=== PATIENT | male | born 1945 | race Caucasian/White ===

== ENCOUNTER 2018-12-06 13:44 | Inpatient (IN) | payer MEDICARE, MEDICAID ==
[2018-12-06] MEDS ORDERED: Sodium Chloride 0.9% 1,000 ML IV ONE (14:31)
[2018-12-06] MEDS ORDERED: cefTRIAXone 1 GM in Sodium Chloride 0.9% 50 ML IV ONE (14:38)
[2018-12-06] MEDS ORDERED: Azithromycin 500 MG in Sodium Chloride 0.9% 250 ML IV ONE (14:38)
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
[2018-12-06] MEDS ORDERED: Potassium Chloride 10% 20 MEQ/15 ML Soln 15 ML UD Cup PO ONE (15:13)
[2018-12-06] MEDS ORDERED: Acetaminophen 325 MG Tab PO PRN (15:32)
[2018-12-06] MEDS ORDERED: Ondansetron 4 MG Tab.DIS PO PRN (15:32)
[2018-12-06] MEDS ORDERED: Bisacodyl 5 MG Tab PO PRN (15:32)
[2018-12-06] MEDS ORDERED: Lactated Ringers 1,000 ML IV SCH (15:45)
[2018-12-06] MEDS ORDERED: Indomethacin 50 MG Cap PO PRN (15:53)
[2018-12-06] MEDS: Albuterol/Ipratropium 3.0-0.5 MG/3 ML Neb Soln NEB SCH ×2 (16:18→20:30)
[2018-12-06] MEDS: Nicotine 14 MG/24 Hr Patch TRDERM SCH (16:19)
[2018-12-06] MEDS: Lactated Ringers 1,000 ML IV SCH (18:33)
[2018-12-06] MEDS: Enoxaparin 40 MG/0.4 ML Syringe SUBCUT SCH (18:35)
--- NOTE | 2018-12-06 19:17 | PCM.HP ---
H&P History of Present Illness - General Date of Service: 12/06/18 Admit Problem/Dx: Admission Diagnosis/Problem Admission Diagnosis/Problem Dehydration Source of Information: Patient, Old Records History Limitations: Reports: No Limitations - History of Present Illness Initial Comments - Free Text/Narative: Angel was brought in from the apartment because of fatigue, weakness. He complains that he has not been able to eat or drink for 2 days and was unable to get out of the seat this morning. He has no chest pain;headaches or weakness of one side. He was noted to be slightly confused and having slurred speech today. Angel drinks everyday,lives is alone, has a history of hypertension and gout, sees Dr. Canseco once in a while. - Related Data Allergies/Adverse Reactions: Allergies Allergy/AdvReac Type Severity Reaction Status Date / Time No Known Allergies Allergy Verified 12/06/18 14:32 Home Medications: Home Meds Atenolol 100 mg PO DAILY 12/06/18 [History] Enalapril Maleate 10 mg PO DAILY 12/06/18 [History] Indomethacin 50 mg PO BID PRN 12/06/18 [History] Past Medical History - Past Health History Medical/Surgical History: Denies Medical/Surgical History HEENT History: Reports: Impaired Vision Musculoskeletal History: Reports: Gout Other Musculoskeletal History: LEFT LEG FRACTURE Neurological History: Reports: Head Trauma Social & Family History - Family History Family Medical History: Unobtainable - Tobacco Use Smoking Status *Q: Never Smoker - Caffeine Use Caffeine Use: Reports: None - Alcohol Use Days Per Week of Alcohol Use: 7 Number of Drinks Per Day: 2 Total Drinks Per Week: 14 Date of Last Drink: 12/04/18 - Recreational Drug Use Recreational Drug Use: No H&P Review of Systems - Review of Systems: Review Of Systems: ROS reveals no pertinent complaints other than HPI. Exam - Exam Exam: See Below - Vital Signs Vital Signs: Last Vital Signs Temp 97.5 F 12/06/18 18:34 Pulse 109 H 12/06/18 18:34 Resp 20 12/06/18 18:34 BP 119/61 12/06/18 18:34 Pulse Ox 94 L 12/06/18 18:34 Weight: 80.422 kg - Exam Quality Assessment: Supplemental Oxygen General: Alert, Oriented, 4 HEENT: PERRLA, Hearing Intact, Mucosa Moist & [place], Nares Patent, Normal Nasal Septum, Posterior Pharynx Clear, Conjunctiva Clear, EOMI, EACs Clear, TMs Clear Neck: Supple, Trachea Midline, 2 Lungs: Clear to Auscultation, Normal Respiratory Effort Cardiovascular: Regular Rate, Regular Rhythm GI/Abdominal Exam: Distended, Tender (LLQ) (Male) Exam: No Hernia, Normal Inspection, Normal Prostate, Circumcised Rectal (Males) Exam: Normal Exam, Normal Rectal Tone, Prostate Normal Back Exam: Normal Inspection, Full Range of Motion, NT Extremities: Normal Inspection, Normal Range of Motion, Non-Tender, No Pedal Edema, Normal Capillary Refill Skin: Warm, Dry, Intact Neurological: Cranial Nerves Intact, Reflexes Equal Bilateral Neuro Extensive - Mental Status: Alert, Oriented x3, Normal Mood/Affect, Normal Cognition Neuro Extensive - Motor, Sensory, Reflexes: CN II-XII Intact, Normal Gait, Normal Reflexes Psychiatric: Alert, Normal Affect, Normal Mood - Patient Data Lab Results Last 24 hrs: Laboratory Results - last 24 hr 12/06/18 12/06/18 12/06/18 Range/Units 14:40 14:40 14:40 WBC (4.5-12.0) X10-3/uL RBC (4.30-5.75) x10(6)uL Hgb (11.5-15.5) g/dL Hct (30.0-51.3) % MCV (80-96) fL MCH (27.7-33.6) pg MCHC (32.2-35.4) g/dL RDW (11.5-15.5) % Plt Count (125-369) X10(3)uL MPV (7.4-10.4) fL Add Manual Diff Neutrophils % (Manual) (46-82) % Band Neutrophils % (0-6) % Lymphocytes % (Manual) (13-37) % Monocytes % (Manual) (4-12) % PT (8.7-11.1) INR (0.89-1.13) D-Dimer, Quantitative 1.38 H (0.0-0.59) mg/LFEU Sodium 135 (135-145) mmol/L Potassium 2.6 L* (3.5-5.3) mmol/L Chloride 95 L (100-110) mmol/L Carbon Dioxide 17 L (21-32) mmol/L BUN 10 (7-18) mg/dL Creatinine 1.0 (0.70-1.30) mg/dL Est Cr Clr Drug Dosing 66.92 mL/min Estimated GFR (MDRD) > 60 (>60) BUN/Creatinine Ratio 10.0 (9-20) Glucose 141 H (80-116) mg/dL Lactic Acid (0.4-2.2) mmol/L Calcium 9.7 (8.6-10.2) mg/dL Total Bilirubin 3.6 H (0.1-1.3) mg/dL AST 99 H (5-25) IU/L ALT 61 H (12-36) U/L Alkaline Phosphatase 166 H (56-112) IU/L Creatine Kinase (60-160) IU/L Troponin I < 0.017 L (<0.017-0.056) ng/mL NT-Pro-B Natriuret Pep (<=125) pg/mL Total Protein 8.8 H (6.0-8.0) g/dL Albumin 3.1 L (3.2-4.6) g/dL Globulin 5.7 g/dL Albumin/Globulin Ratio 0.5 TSH, Ultra Sensitive (0.36-3.74) IU/mL 12/06/18 12/06/18 12/06/18 Range/Units 14:40 14:40 14:40 WBC 11.6 (4.5-12.0) X10-3/uL RBC 4.70 (4.30-5.75) x10(6)uL Hgb 15.9 H (11.5-15.5) g/dL Hct 46.6 (30.0-51.3) % MCV 99.2 H (80-96) fL MCH 34.0 H (27.7-33.6) pg MCHC 34.2 (32.2-35.4) g/dL RDW 15.2 (11.5-15.5) % Plt Count 279 (125-369) X10(3)uL MPV 8.8 (7.4-10.4) fL Add Manual Diff Yes Neutrophils % (Manual) 84 H (46-82) % Band Neutrophils % 1 (0-6) % Lymphocytes % (Manual) 5 L (13-37) % Monocytes % (Manual) 10 (4-12) % PT (8.7-11.1) INR (0.89-1.13) D-Dimer, Quantitative (0.0-0.59) mg/LFEU Sodium (135-145) mmol/L Potassium (3.5-5.3) mmol/L Chloride (100-110) mmol/L Carbon Dioxide (21-32) mmol/L BUN (7-18) mg/dL Creatinine (0.70-1.30) mg/dL Est Cr Clr Drug Dosing mL/min Estimated GFR (MDRD) (>60) BUN/Creatinine Ratio (9-20) Glucose (80-116) mg/dL Lactic Acid 2.1 (0.4-2.2) mmol/L Calcium (8.6-10.2) mg/dL Total Bilirubin (0.1-1.3) mg/dL AST (5-25) IU/L ALT (12-36) U/L Alkaline Phosphatase (56-112) IU/L Creatine Kinase (60-160) IU/L Troponin I (<0.017-0.056) ng/mL NT-Pro-B Natriuret Pep 412 H (<=125) pg/mL Total Protein (6.0-8.0) g/dL Albumin (3.2-4.6) g/dL Globulin g/dL Albumin/Globulin Ratio TSH, Ultra Sensitive (0.36-3.74) IU/mL 12/06/18 12/06/18 12/06/18 Range/Units 14:40 14:40 14:40 WBC (4.5-12.0) X10-3/uL RBC (4.30-5.75) x10(6)uL Hgb (11.5-15.5) g/dL Hct (30.0-51.3) % MCV (80-96) fL MCH (27.7-33.6) pg MCHC (32.2-35.4) g/dL RDW (11.5-15.5) % Plt Count (125-369) X10(3)uL MPV (7.4-10.4) fL Add Manual Diff Neutrophils % (Manual) (46-82) % Band Neutrophils % (0-6) % Lymphocytes % (Manual) (13-37) % Monocytes % (Manual) (4-12) % PT 12.1 H (8.7-11.1) INR 1.25 H (0.89-1.13) D-Dimer, Quantitative (0.0-0.59) mg/LFEU Sodium (135-145) mmol/L Potassium (3.5-5.3) mmol/L Chloride (100-110) mmol/L Carbon Dioxide (21-32) mmol/L BUN (7-18) mg/dL Creatinine (0.70-1.30) mg/dL Est Cr Clr Drug Dosing mL/min Estimated GFR (MDRD) (>60) BUN/Creatinine Ratio (9-20) Glucose (80-116) mg/dL Lactic Acid (0.4-2.2) mmol/L Calcium (8.6-10.2) mg/dL Total Bilirubin (0.1-1.3) mg/dL AST (5-25) IU/L ALT (12-36) U/L Alkaline Phosphatase (56-112) IU/L Creatine Kinase 78 (60-160) IU/L Troponin I (<0.017-0.056) ng/mL NT-Pro-B Natriuret Pep (<=125) pg/mL Total Protein (6.0-8.0) g/dL Albumin (3.2-4.6) g/dL Globulin g/dL Albumin/Globulin Ratio TSH, Ultra Sensitive 0.96 (0.36-3.74) IU/mL Result Diagrams: 12/06/18 14:40 12/06/18 14:40 Clive Results Last 24 hrs: Microbiology 12/06/18 14:43 Influenza Type A Antigen Screen - Final Nasal, Right NEGATIVE INFLUENZA A VIRUS AG Influenza Type B Antigen Screen - Final NEGATIVE INFLUENZA B VIRUS AG 12/06/18 14:43 Group A Streptococcus Rapid Screen - Final Throat NEGATIVE STREP A SCREEN - Problem List (1) CAP (community acquired pneumonia) SNOMED Code(s): 027220783 ICD Code: J18.9 - PNEUMONIA, UNSPECIFIED ORGANISM Status: Acute Current Visit: Yes Qualifiers: Laterality: unspecified laterality Qualified Code(s): J18.9 - Pneumonia, unspecified organism (2) Hypoxia SNOMED Code(s): 898405831 ICD Code: R09.02 - HYPOXEMIA Status: Acute Current Visit: Yes (3) Hypokalemia SNOMED Code(s): 93106984 ICD Code: E87.6 - HYPOKALEMIA Status: Acute Current Visit: Yes (4) ETOH abuse SNOMED Code(s): 14627513 ICD Code: F10.10 - ALCOHOL ABUSE, UNCOMPLICATED Status: Acute Current Visit: Yes (5) HTN (hypertension) SNOMED Code(s): 91155606 ICD Code: I10 - ESSENTIAL (PRIMARY) HYPERTENSION Status: Acute Current Visit: Yes Qualifiers: Hypertension type: essential hypertension Qualified Code(s): I10 - Essential (primary) hypertension (6) Failure to thrive SNOMED Code(s): 06626263 ICD Code: OTF1608 - Status: Acute Current Visit: Yes (7) Palliative care encounter SNOMED Code(s): 260618184 ICD Code: Z51.5 - ENCOUNTER FOR PALLIATIVE CARE Status: Acute Current Visit: Yes (8) Abdominal pain SNOMED Code(s): 21627228 ICD Code: R10.9 - UNSPECIFIED ABDOMINAL PAIN Status: Acute Current Visit : Yes (9) Anorexia SNOMED Code(s): 51421223 ICD Code: R63.0 - ANOREXIA Status: Acute Current Visit: Yes (10) UTI (urinary tract infection) SNOMED Code(s): 96677791 ICD Code: N39.0 - URINARY TRACT INFECTION, SITE NOT SPECIFIED Status: Acute Current Visit: Yes Problem List Initiated/Reviewed/Updated: Yes Orders Last 24hrs: Active Orders 24 hr Category Date Time Status Patient Status [ADT] Routine ADT 12/06/18 15:32 Active EKG Documentation Completion [RC] ASDIRECTED Care 12/06/18 14:30 Active Oxygen Therapy [RC] PRN Care 12/06/18 15:32 Active RT Aerosol Therapy [RC] ASDIRECTED Care 12/06/18 15:37 Active VTE/DVT Education [RC] Per Unit Routine Care 12/06/18 15:32 Active Vital Signs [RC] Q4H Care 12/06/18 15:32 Active Regular Diet [DIET] Diet 12/07/18 Breakfast Active Abdomen Pelvis w Cont [CT] Routine Exams 12/06/18 19:12 Ordered Ang Chest [CT] Routine Exams 12/06/18 19:13 Ordered CXR [Chest 1V Frontal] [CR] Stat Exams 12/06/18 14:29 Taken Head wo Cont [CT] Stat Exams 12/06/18 14:30 Taken AMYLASE [CHEM] Routine Lab 12/06/18 19:13 Ordered CBC WITH AUTO DIFF [HEME] AM Lab 12/07/18 05:11 Ordered COMPREHENSIVE METABOLIC PN,CMP [CHEM] AM Lab 12/07/18 05:11 Ordered CULTURE BLOOD [BC] Urgent Lab 12/06/18 14:40 Received CULTURE BLOOD [BC] Urgent Lab 12/06/18 14:46 Received CULTURE STREP A CONFIRMATION [RM] Urgent Lab 12/06/18 14:43 Results STREP SCRN A RAPID W CULT CONF [RM] Urgent Lab 12/06/18 14:43 Results UA W/MICROSCOPIC [URIN] Urgent Lab 12/06/18 14:28 Ordered Acetaminophen [Tylenol] Med 12/06/18 15:32 Active 650 mg PO Q4H PRN Albuterol/Ipratropium [DuoNeb 3.0-0.5 MG/3 ML] Med 12/06/18 16:00 Active 3 ml NEB QIDRT Atenolol [Tenormin] Med 12/07/18 09:00 Active 100 mg PO DAILY Bisacodyl [Dulcolax] Med 12/06/18 15:32 Active 5 mg PO DAILY PRN Enalapril [Vasotec] Med 12/07/18 09:00 Active 10 mg PO DAILY Enoxaparin [Lovenox] Med 12/06/18 18:00 Active 40 mg SUBCUT Q24H Indomethacin [Indocin] Med 12/06/18 21:00 Active 50 mg PO BID PRN Lactated Ringers [Ringers, Lactated] 1,000 ml Med 12/06/18 15:45 Active IV .BOLUS Lactated Ringers [Ringers, Lactated] 1,000 ml Med 12/06/18 18:30 Active IV ASDIRECTED Nicotine [Habitrol] Med 12/06/18 16:00 Active 14 mg TRDERM Q24H Ondansetron [Zofran ODT] Med 12/06/18 15:32 Active 4 mg PO Q6H PRN Blood Culture x2 Reflex Set [OM.PC] Urgent Oth 12/06/18 14:27 Ordered Resuscitation Status Routine Resus Stat 12/06/18 15:32 Ordered EKG 12 Lead [EK] Routine Ther 12/06/18 14:29 Ordered Medication Orders Acetaminophen (Tylenol) 650 mg PO Q4H PRN PRN Reason: Pain (Mild 1-3)/fever Albuterol/Ipratropium (Duoneb 3.0-0.5 Mg/3 Ml) 3 ml NEB QIDRT [facility] Last Admin: 12/06/18 16:18 Dose: 3 ml Atenolol (Tenormin) 100 mg PO DAILY [facility] Bisacodyl (Dulcolax) 5 mg PO DAILY PRN PRN Reason: Constipation Enalapril Maleate (Vasotec) 10 mg PO DAILY [facility] Enoxaparin Sodium (Lovenox) 40 mg SUBCUT Q24H [facility] Last Admin: 12/06/18 18:35 Dose: 40 mg Lactated Ringer's (Ringers, Lactated) 1,000 mls @ 999 mls/hr IV .BOLUS [facility] Last Admin: 12/06/18 17:20 Dose: 999 mls/hr Lactated Ringer's (Ringers, Lactated) 1,000 mls @ 100 mls/hr IV ASDIRECTED [facility] Last Admin: 12/06/18 18:33 Dose: 100 mls/hr Indomethacin (Indocin) 50 mg PO BID PRN PRN Reason: Pain Nicotine (Habitrol) 14 mg TRDERM Q24H [facility] Last Admin: 12/06/18 16:19 Dose: Not Given Ondansetron HCl (Zofran Odt) 4 mg PO Q6H PRN PRN Reason: nausea, able to take PO Assessment/Plan Comment:: I reviewed his chest x-ray and CT of the head unremarkable. I believe the source of his weakness is multifactorial including alcohol abuse, hypokalemia. I will order the CT of the abdomen and pelvis and chest fever for PE, and possibly pancreatitis or diverticulitis. Repeat labs the morning;continue IV fluid resuscitation and oxygen supplementation.Urine shows an infection,and CT does show some pneumonia
[2018-12-06] MEDS ORDERED: Iopamidol 755 Mg/ML 100 ML Bottle IV ONE (19:25)
[2018-12-06] MEDS: Thiamine 200 MG/2 ML MDV IV SCH (20:25)
[2018-12-06] MEDS ORDERED: Indomethacin 25 MG Cap PO PRN (21:00)
[2018-12-06] MEDS ORDERED: Sodium Chloride 0.9% 10 ML SDV FLUSH SCH (23:00)
[2018-12-07] MEDS: Albuterol/Ipratropium 3.0-0.5 MG/3 ML Neb Soln NEB SCH ×5 (04:52→19:59)
[2018-12-07] MEDS: Lactated Ringers 1,000 ML IV SCH (04:53)
[2018-12-07] MEDS: Thiamine 200 MG/2 ML MDV IV SCH (08:35)
--- NOTE | 2018-12-07 08:38 | CT ---
INDICATION: Confusion; mitral valve prosthesis; CABG, 2 vessels; question TIA, cerebrovascular accident, or cerebral bleed. CT HEAD WITHOUT CONTRAST: Spiral axial images of the head/brain were obtained with sagittal and coronal reconstructions, 12/06/18, without IV contrast. No comparisons were available. Total exam DLP = 1,296.53 mGy-cm. Carotid artery calcifications are noted. 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 The left frontal lobe area is most severely affected. No definite acute intracranial abnormality was identified - no bleeding site or hematoma was seen. There is some mild patchy decreased density in the white matter, compatible with mild microvascular disease, although other cause of leukoencephalopathy cannot be excluded. No shift of midline structures was identified. Ventricles are prominent, compatible with central atrophy. The mastoid air cells and paranasal sinuses appear to be well-aerated. No cranial abnormality was identified. IMPRESSION: 1. No definite acute intracranial abnormality. 2. 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 3. Central atrophy. 4. Cerebrovascular disease with internal carotid artery calcifications. 5. White matter changes compatible with microvascular disease of mild degree. Report was called to Dr. Paz at 1545 hours on 12/06/18. [facility]AR[facility]
--- NOTE | 2018-12-07 08:40 | CR ---
INDICATION: Chest pain. CHEST: Portable AP upright view of the chest was obtained 12/06/18 - no comparisons. The heart did not appear enlarged. The aorta is tortuous with calcifications in the arch. Overlying EKG leads are noted. A definite active infiltrate or effusion was not identified. IMPRESSION: No acute process. Report was called to Dr. Paz at 1545 hours on 12/06/18. [facility]ITALRyan
[2018-12-07] MEDS ORDERED: predniSONE 5 MG Tab PO SCH (09:00)
[2018-12-07] MEDS ORDERED: Potassium Chloride 20 MEQ in Premix Bag 1 BAG IV ONE (11:37)
--- NOTE | 2018-12-07 12:59 | PN ---
DATE SEEN: 12/07/2018 SUBJECTIVE: Angel Ortiz is a 73-year-old, male, admitted through the ER on 12/06/2017. Presented with increasing disability. Lives at [facility]. Not eating complaint. Weakness, fatigue. Admitted for intervention. Pneumonia was a clinical concern but not radiographically present. Dehydration an issue. LABORATORY STUDIES OF SIGNIFICANCE: CBC is stable. INR elevated at 1.25, not on Coumadin. Low potassium 2.6, this morning 2.3. Markedly elevated liver enzymes, including bilirubin 3.6 and 2.3. Elevated AST, ALT, alkaline phosphatase, and elevated CRP. Feels better this morning. Issues of hoarding, self-care, and limited intervention. IV fluids presently in place. PHYSICAL EXAMINATION: VITAL SIGNS: Stable. 140/99, mean 99, 92% on room air, respirations 20. GENERAL: Cooperative, a bit confused. NECK: Benign. Thyroid small. CHEST: Clear in all lung beard. HEART: No ectopy or murmur. ABDOMEN: Benign. Hepatosplenomegaly suspected. ASSESSMENT: Complicated weakness, fatigue, lethargy, alcohol may be of concern, nutrition, well being. PLAN: Discontinue IV fluids, CT abdomen will be performed, to look at clinical well being in that respect. Expect overnight stay. We will replace potassium accordingly. /[id number] NASEEM/JOSE
[2018-12-07] MEDS: Sodium Chloride 0.9% 10 ML Syringe FLUSH PRN (15:49)
[2018-12-07] MEDS: Nicotine 14 MG/24 Hr Patch TRDERM SCH (17:45)
[2018-12-07] MEDS: Enoxaparin 40 MG/0.4 ML Syringe SUBCUT SCH (17:46)
[2018-12-07] MEDS: Potassium Chloride 20 MEQ Tab.ER PO SCH (21:27)
[2018-12-08] MEDS: Albuterol/Ipratropium 3.0-0.5 MG/3 ML Neb Soln NEB SCH ×4 (06:19→22:13)
[2018-12-08] MEDS: Thiamine 100 MG Tab PO SCH (08:50)
[2018-12-08] MEDS: Potassium Chloride 20 MEQ Tab.ER PO SCH ×2 (08:50→18:33)
--- NOTE | 2018-12-08 10:06 | PN ---
DATE SEEN: 12/08/2018 SUBJECTIVE: Angel Ortiz is a 73-year-old, male, admitted with weakness and fatigability. Pneumonia suspected but not clinically radiographically present. Urine was of concern, i.e., 2+ protein with significant ketones, moderate occult blood, leukocytes, 5-10 red cells, white cells. Culture negative as of this morning. Influenza A and B cultures assay testing is negative. Otherwise doing well. Not been on the bed much. PHYSICAL EXAMINATION: VITAL SIGNS: 36.7, 77, 108/66, 18, O2 saturation 98%. GENERAL: Appears comfortable. Soft spoken. NECK: Benign. Thyroid small. CHEST: Clear in all lung beard. HEART: Occasional ectopy but no significant murmur. ABDOMEN: Benign. ASSESSMENT: 1. Dehydration. 2. Hypokalemia, improving with oral agents. 3. Urinary tract infection suspected, but not confirmed. PLAN: We will await culture. We will recheck urine, check potassium at 1600 hours, oral medications on board. Expect discharge tomorrow. /[id number] /JOSE
[2018-12-08] MEDS: Nicotine 14 MG/24 Hr Patch TRDERM SCH (16:48)
[2018-12-08] MEDS: Enoxaparin 40 MG/0.4 ML Syringe SUBCUT SCH (18:33)
[2018-12-08] MEDS: Sodium Chloride 0.9% 10 ML Syringe FLUSH PRN (18:33)
[2018-12-09] MEDS: Albuterol/Ipratropium 3.0-0.5 MG/3 ML Neb Soln NEB SCH ×2 (08:48→15:00)
[2018-12-09] MEDS: Potassium Chloride 20 MEQ Tab.ER PO SCH (08:49)
[2018-12-09] MEDS: Thiamine 100 MG Tab PO SCH (08:50)
--- NOTE | 2018-12-09 10:25 | DISCH ---
DISCHARGE DATE: 12/09/2018 Angel rOtiz is a 73-year-old male, admitted with fatigue, weakness, inability to eat, vague headache, and a sense of reduced well-being. Slightly confused and some slurred speech. Lives alone. Angel sees Dr. Canseco. Underwent chest x-ray, showed no acute findings; CT of the head revealed age- related changes; CT chest revealed no pulmonary emboli. Laboratory studies of significance, potassium 2.3, electrolytes otherwise satisfactory. Hemoglobin 13.4, slightly macrocytic indices. Mildly elevated liver enzymes noted. Alcohol, a clinical concern. He was placed on thiamine, IV fluids, and potassium replacement. Ambulation improved, well-being improved, implications of concerns in self-care at home an issue. Potassium went from 2.3 to 2.6 to 2.8 to 3.0. Tolerating p.o. calcium. At the time of discharge, he was comfortable. We will discharge home, good nutrition fluids. Two 20 mEq potassium pills per day, two bananas per day. Good nutrition. Avoiding of alcohol, avoiding of nicotine. DISCHARGE MEDICATIONS: Please see med recon list. SURGICAL PROCEDURES: None. CONSULTATION: None. FOLLOWUP APPOINTMENT: Dr. Canseco in 1 week's time. ADDENDUM: A 30-minute visit in duration. Planning, discharge planning. /[id number] /JOSE
[2018-12-10] MEDS ORDERED: Potassium Chloride 20 MEQ Tab.ER PO SCH (08:00)
--- NOTE | 2018-12-10 08:18 | DISCH ---
DISCHARGE DATE: 12/09/2018 ADDENDUM: EXAM ON DISCHARGE: VITAL SIGNS: Blood pressure 122/76, 98 mean blood pressure; pulse 90; 37.1; O2 saturation 96 on room air. GENERAL: Appears comfortable. More awake and alert. HEENT: Reveal funduscopic benign. Bright TMs. Clear nasal discharge. Mouth and oropharynx clear. NECK: Benign. CHEST: Clear in all lung beard. No adventitious sounds. HEART: No ectopy or murmur. ABDOMEN: Benign. No hepatosplenomegaly. /[id number] /JOSE
== END 2018-12-09 14:55 | disposition home or self-care (01) | DRG 641 ==
LOC: FB.ED 13:44 → FB.MS 15:32
PROVIDERS: ADMIT Emergency Medicine; ATTEND Family Medicine
DX: E86.0 Dehydration (principal); N39.0 Urinary tract infection, site not specified; Z51.5 Encounter for palliative care; R63.0 Anorexia; G93.89 Other specified disorders of brain; F10.10 Alcohol abuse, uncomplicated; Z60.4 Social exclusion and rejection; R62.7 Adult failure to thrive; I10 Essential (primary) hypertension; M10.9 Gout, unspecified; R09.02 Hypoxemia; E87.6 Hypokalemia; R10.9 Unspecified abdominal pain; R47.81 Slurred speech; R53.1 Weakness; R41.0 Disorientation, unspecified; H54.7 Unspecified visual loss
CPT/HCPCS: 36415; 70450; 71045; 71275; 74177; 80048; 80053; 81001; 82150; 82550; 83605; 83735; 83880; 84132; 84443; 84484; 85025; 85379; 85610; 86140; 87040; 87081; 87086; 87804; 87804-59; 87880-QW; 93005; 93010; 94640; 96361; 96365; 96367; 99285; A9270-GY; J0456; J0696; J1650; J3411; J3480; J7030; J7050; J7120; J7620-GY; Q9967

== ENCOUNTER 2019-12-03 14:48 | Emergency (ER) | payer MEDICAID, MEDICARE ==
[2019-12-03] MEDS ORDERED: Sodium Chloride 0.9% 10 ML Syringe FLUSH PRN (16:07)
[2019-12-03] MEDS ORDERED: MVI, Adult with Vitamin K 10 ML, Thiamine 100 MG, Folic Acid 1 MG, Magnesium Sulfate 3 ... IV SCH ×5 (16:15)
[2019-12-03] MEDS ORDERED: Ondansetron 4 MG/2 ML SDV IVPUSH ONE (18:00)
--- NOTE | 2019-12-03 18:02 | EDM.PDOC ---
ED HPI GENERAL MEDICAL PROBLEM - General Chief Complaint: Abdominal Pain Stated Complaint: NO APPETITE, VOMITTING Time Seen by Provider: 12/03/19 14:50 Source of Information: Reports: Patient History Limitations: Reports: No Limitations - History of Present Illness INITIAL COMMENTS - FREE TEXT/NARRATIVE: Patient presented to the ED because of weakness, persistent N/V. He denies any abdominal pain, changes in bowel movements or urinary symptoms. He was also noticed to have scleral icterus and increase in abdominal girth.Angel drink alcohol on a daily basis and couldn't take care of himself. - Related Data Allergies Allergy/AdvReac Type Severity Reaction Status Date / Time No Known Allergies Allergy Verified 12/03/19 15:34 Home Meds: Home Meds Enalapril Maleate 10 mg PO DAILY 12/06/18 [History] Indomethacin 50 mg PO BID PRN 12/06/18 [History] atenoloL [Atenolol] 100 mg PO DAILY 12/06/18 [History] Potassium Chloride [Klor-Con M20] 20 meq PO BID 3 Days #60 tab.er 12/09/18 [Rx] Thiamine [Vitamin B-1] 100 mg PO DAILY #30 tablet 12/09/18 [Rx] Past Medical History - Past Health History Medical/Surgical History: Denies Medical/Surgical History HEENT History: Reports: Impaired Vision Cardiovascular History: Reports: Hypertension Musculoskeletal History: Reports: Gout Other Musculoskeletal History: LEFT LEG FRACTURE Neurological History: Reports: Head Trauma Social & Family History - Family History Family Medical History: Unobtainable - Tobacco Use Years of Tobacco use: 60 Packs/Tins Daily: 1 - Caffeine Use Caffeine Use: Reports: None ED ROS GENERAL - Review of Systems Review Of Systems: See Below Constitutional: Reports: Weakness HEENT: Reports: No Symptoms Respiratory: Reports: No Symptoms Cardiovascular: Reports: No Symptoms Endocrine: Reports: No Symptoms GI/Abdominal: Reports: Nausea, Vomiting : Reports: No Symptoms Musculoskeletal: Reports: No Symptoms Skin: Reports: No Symptoms Neurological: Reports: No Symptoms ED EXAM, GI/ABD - Physical Exam Exam: See Below Exam Limited By: No Limitations General Appearance: Alert, No Apparent Distress Eyes: Bilateral: Normal Appearance, Pale Conjunctiva (scleral incterus) Ears: Normal External Exam Nose: Normal Inspection, Normal Mucosa Throat/Mouth: Normal Inspection, Normal Lips Head: Atraumatic, Normocephalic Neck: Normal Inspection, Supple, Non-Tender Respiratory/Chest: No Respiratory Distress, Lungs Clear, Normal Breath Sounds, No Accessory Muscle Use, Chest Non-Tender Cardiovascular: Normal Peripheral Pulses, Regular Rate, Rhythm, No Edema, No Gallop, No JVD, No Murmur, No Rub GI/Abdominal Exam: Normal Bowel Sounds, Soft, Non-Tender, Distended. No: Tender Extremities: Normal Inspection, Normal Range of Motion, Non-Tender, No Pedal Edema Neurological: Alert, Oriented, CN II-XII Intact, Normal Cognition, Normal Gait Skin Exam: Warm, Other (macerated skin lesions in between toe webs) Course - Vital Signs Text/Narrative:: Labs/EKG/CXR was discussed with patient and verbalized full understanding Banana bag IV Zofran 4 mg IV x1 Central Line placement by Dr Best Last Recorded V/S: Last Vital Signs Temp 36.8 C 12/03/19 14:48 Pulse 55 L 12/03/19 14:48 Resp 18 12/03/19 14:48 BP 154/62 H 12/03/19 14:48 Pulse Ox 100 12/03/19 14:48 - Orders/Labs/Meds Orders: Active Orders 24 hr Category Date Time Status EKG Documentation Completion [RC] ASDIRECTED Care 12/03/19 16:11 Active CXR [Chest 1V Frontal] [CR] Stat Exams 12/03/19 16:10 Taken DRUG SCREEN, URINE ALERE [URCHEM] Stat Lab 12/03/19 16:07 Ordered INR,PT,PROTHROMBIN TIME [COAG] Stat Lab 12/03/19 17:54 Ordered PTT,PARTIAL THROMBOPLSTIN TIME [COAG] Stat Lab 12/03/19 17:54 Ordered MVI, Adult with Vitamin K [Infuvite Adult] 10 ml Med 12/03/19 16:15 Active Thiamine [Vitamin B-1] 100 mg Folic Acid 1 mg Magnesium Sulfate [Magnesium Sulfate 50%] 3 gm Sodium Chloride 0.9% [Normal Saline] 1,000 ml IV ASDIRECTED Sodium Chloride 0.9% [Saline Flush] Med 12/03/19 16:07 Active 10 ml FLUSH ASDIRECTED PRN Saline Lock Insert [OM.PC] Routine Oth 12/03/19 16:07 Ordered EKG 12 Lead [EK] Routine Ther 12/03/19 16:10 Ordered Medication Orders Multivitamins/Minerals 10 ml/Thiamine HCl 100 mg/ Folic Acid 1 mg/ Magnesium Sulfate 3 gm/ Sodium Chloride 1,017.2 mls @ 999 mls/hr IV ASDIRECTED JANELL Last Admin: 12/03/19 16:33 Dose: 999 mls/hr Sodium Chloride (Saline Flush) 10 ml FLUSH ASDIRECTED PRN PRN Reason: Keep Vein Open Last Admin: 12/03/19 16:58 Dose: 10 ml Labs: Laboratory Tests 12/03/19 12/03/19 12/03/19 Range/Units 16:25 16:25 16:25 WBC 10.3 (4.5-12.0) X10-3/uL RBC 4.03 L (4.30-5.75) x10(6)uL Hgb 14.1 (13.5-17.8) g/dL Hct 41.3 (30.0-51.3) % MCV 102.4 H (80-96) fL MCH 35.1 H (27.7-33.6) pg MCHC 34.2 (32.2-35.4) g/dL RDW 15.6 H (11.5-15.5) % Plt Count 263 (125-369) X10(3)uL MPV 8.4 (7.4-10.4) fL Add Manual Diff Yes Neutrophils % (Manual) 83 H (46-82) % Lymphocytes % (Manual) 10 L (13-37) % Monocytes % (Manual) 7 (4-12) % Macrocytosis Few Sodium 133 L (135-145) mmol/L Potassium 2.4 L* (3.5-5.3) mmol/L Chloride 89 L* D (100-110) mmol/L Carbon Dioxide 31 (21-32) mmol/L BUN 10 (7-18) mg/dL Creatinine 1.1 (0.70-1.30) mg/dL Est Cr Clr Drug Dosing TNP Estimated GFR (MDRD) > 60 (>60) BUN/Creatinine Ratio 9.1 (9-20) Glucose 100 (80-116) mg/dL Calcium 8.5 L (8.6-10.2) mg/dL Total Bilirubin 8.4 H (0.1-1.3) mg/dL AST 97 H D (5-25) IU/L ALT 40 H D (12-36) U/L Alkaline Phosphatase 125 H (56-112) IU/L Troponin I (4.0-60.3) pg/mL Total Protein 7.7 (6.0-8.0) g/dL Albumin 2.4 L (3.2-4.6) g/dL Globulin 5.3 g/dL Albumin/Globulin Ratio 0.5 Amylase 12 L (25-115) U/L Lipase 122 (73-393) U/L Ethyl Alcohol < 0.03 (<0.03) % 12/03/ Range/Units 16:25 WBC (4.5-12.0) X10-3/uL RBC (4.30-5.75) x10(6)uL Hgb (13.5-17.8) g/dL Hct (30.0-51.3) % MCV (80-96) fL MCH (27.7-33.6) pg MCHC (32.2-35.4) g/dL RDW (11.5-15.5) % Plt Count (125-369) X10(3)uL MPV (7.4-10.4) fL Add Manual Diff Neutrophils % (Manual) (46-82) % Lymphocytes % (Manual) (13-37) % Monocytes % (Manual) (4-12) % Macrocytosis Sodium (135-145) mmol/L Potassium (3.5-5.3) mmol/L Chloride (100-110) mmol/L Carbon Dioxide (21-32) mmol/L BUN (7-18) mg/dL Creatinine (0.70-1.30) mg/dL Est Cr Clr Drug Dosing Estimated GFR (MDRD) (>60) BUN/Creatinine Ratio (9-20) Glucose (80-116) mg/dL Calcium (8.6-10.2) mg/dL Total Bilirubin (0.1-1.3) mg/dL AST (5-25) IU/L ALT (12-36) U/L Alkaline Phosphatase (56-112) IU/L Troponin I 11.8 (4.0-60.3) pg/mL Total Protein (6.0-8.0) g/dL Albumin (3.2-4.6) g/dL Globulin g/dL Albumin/Globulin Ratio Amylase (25-115) U/L Lipase (73-393) U/L Ethyl Alcohol (<0.03) % Meds: Medications Generic Name Dose Route Start Last Admin Trade Name Freq PRN Reason Stop Dose Admin Multivitamins/Minerals 10 ml/ 1,017.2 mls @ 999 mls/hr 12/03/19 16:15 16:33 Thiamine HCl 100 mg/ Folic IV 999 mls/hr Acid 1 mg/ Magnesium Sulfate 3 ASDIRECTED JANELL Administration gm/ Sodium Chloride Sodium Chloride 10 ml 12/03/19 16:07 12/03/19 16:58 Saline Flush FLUSH 10 ml ASDIRECTED PRN Administration Keep Vein Open Discontinued Medications Generic Name Dose Route Start Last Admin Trade Name Freq PRN Reason Stop Dose Admin Ondansetron HCl 4 mg 12/03/19 18:00 Zofran IVPUSH 12/03/19 18:01 ONETIME ONE Departure - Departure Time of Disposition: 18:05 Disposition: DC/Tfer to Acute Hospital 02 Condition: Good Clinical Impression: FTT (failure to thrive) in adult, Alcoholic liver disease, Dehydration, Hypokalemia - Discharge Information Referrals: Reyes Canseco MD [Primary Care Provider] - Forms: ED Department Discharge Sepsis Event Note - Evaluation Sepsis Screening Result: No Definite Risk - Focused Exam Vital Signs: Vital Signs Temp Pulse Resp BP Pulse Ox 12/03/19 14:48 36.8 C 55 L 18 154/62 H 100 Date Exam was Performed: 12/03/19 Time Exam was Performed: 18:02 - My Orders Last 24 Hours: My Active Orders 12/03/19 16:07 DRUG SCREEN, URINE ALERE [URCHEM] Stat Sodium Chloride 0.9% [Saline Flush] 10 ml FLUSH ASDIRECTED PRN Saline Lock Insert [OM.PC] Routine 12/03/19 16:10 CXR [Chest 1V Frontal] [CR] Stat EKG 12 Lead [EK] Routine 12/03/19 16:11 EKG Documentation Completion [RC] ASDIRECTED 12/03/19 16:15 MVI, Adult with Vitamin K [Infuvite Adult] 10 ml Thiamine [Vitamin B-1] 100 mg Folic Acid 1 mg Magnesium Sulfate [Magnesium Sulfate 50%] 3 gm Sodium Chloride 0.9% [Normal Saline] 1,000 ml IV ASDIRECTED 12/03/19 17:54 INR,PT,PROTHROMBIN TIME [COAG] Stat PTT,PARTIAL THROMBOPLSTIN TIME [COAG] Stat - Assessment/Plan Last 24 Hours: My Active Orders 12/03/19 16:07 DRUG SCREEN, URINE ALERE [URCHEM] Stat Sodium Chloride 0.9% [Saline Flush] 10 ml FLUSH ASDIRECTED PRN Saline Lock Insert [OM.PC] Routine 12/03/19 16:10 CXR [Chest 1V Frontal] [CR] Stat EKG 12 Lead [EK] Routine 12/03/19 16:11 EKG Documentation Completion [RC] ASDIRECTED 12/03/19 16:15 MVI, Adult with Vitamin K [Infuvite Adult] 10 ml Thiamine [Vitamin B-1] 100 mg Folic Acid 1 mg Magnesium Sulfate [Magnesium Sulfate 50%] 3 gm Sodium Chloride 0.9% [Normal Saline] 1,000 ml IV ASDIRECTED 12/03/19 17:54 INR,PT,PROTHROMBIN TIME [COAG] Stat PTT,PARTIAL THROMBOPLSTIN TIME [COAG] Stat
[2019-12-03] MEDS ORDERED: Potassium Chloride 20 MEQ in Premix Bag 1 BAG IV ONE (19:03)
== END 2019-12-03 19:12 ==
LOC: FB.ED 14:48
DX: E86.0 Dehydration (principal); E87.6 Hypokalemia; R62.7 Adult failure to thrive; K70.9 Alcoholic liver disease, unspecified; F17.210 Nicotine dependence, cigarettes, uncomplicated; I10 Essential (primary) hypertension; Z79.899 Other long term (current) drug therapy
CPT/HCPCS: 36415; 51702; 71045; 80053; 80305; 80307; 81001; 82150; 83690; 84484; 85025; 85610; 85730; 87086; 93005; 96365; 96366; 96375; 99285; J2405; J3411; J3475; J3480; J7030; J3490

== ENCOUNTER 2019-12-24 12:05 | Inpatient (IN) | payer MEDICARE ==
[2019-12-24] MEDS ORDERED: Sodium Chloride 0.9% 500 ML IV SCH ×2 (12:30→15:15)
--- NOTE | 2019-12-24 12:59 | EDM.PDOC ---
ED HPI GENERAL MEDICAL PROBLEM - General Chief Complaint: Gastrointestinal Problem Stated Complaint: NVD Time Seen by Provider: 12/24/19 12:10 Source of Information: Reports: Patient, [facility] Records History Limitations: Reports: No Limitations - History of Present Illness INITIAL COMMENTS - FREE TEXT/NARRATIVE: pt came from [facility] by ambulance , called the ambulance by himself states he has been feeling nauseated, no vomiting but had one episode of diarrhea today feels very weak and tired wanting to sleep only and not be disturbed pt noticed to be jaundiced : he had not noted that himself Onset: Gradual Onset Date: 12/21/19 Duration: Day(s):, Getting Worse Severity: Moderate Associated Symptoms: Reports: Loss of Appetite, Malaise, Weakness - Related Data Allergies Allergy/AdvReac Type Severity Reaction Status Date / Time No Known Allergies Allergy Verified 12/24/19 12:13 Home Meds: Home Meds Potassium Chloride [Klor-Con M20] 20 meq PO BID 3 Days #60 tab.er 12/09/18 [Rx] Furosemide 1 tab PO DAILY 12/24/19 [History] Lactulose 15 ml PO BID 12/24/19 [History] Spironolactone 150 mg PO BID 12/24/19 [History] Tamsulosin HCl 1 cap PO BEDTIME 12/24/19 [History] Past Medical History - Past Health History Medical/Surgical History: Denies Medical/Surgical History HEENT History: Reports: Impaired Vision Cardiovascular History: Reports: Hypertension Musculoskeletal History: Reports: Gout Other Musculoskeletal History: LEFT LEG FRACTURE Neurological History: Reports: Head Trauma Social & Family History - Family History Family Medical History: Unobtainable - Tobacco Use Smoking Status *Q: Never Smoker - Caffeine Use Caffeine Use: Reports: None - Recreational Drug Use Recreational Drug Use: No ED ROS GENERAL - Review of Systems Review Of Systems: See Below Constitutional: Reports: Fever, Chills, Decreased Appetite, Other (dehydrated , very thirsty) HEENT: Reports: No Symptoms Respiratory: Reports: Cough. Denies: Wheezing, Pleuritic Chest Pain, Sputum Cardiovascular: Denies: Dyspnea on Exertion, Edema, Palpitations Endocrine: Reports: Fatigue GI/Abdominal: Reports: Anorexia, Diarrhea, Decreased Appetite, Nausea Musculoskeletal: Reports: No Symptoms Skin: Reports: Jaundice (from face to whole trunck). Denies: Bruising, Pruritis Neurological: Reports: Weakness. Denies: Confusion, Dizziness, Headache Psychiatric: Reports: No Symptoms, Mood Lability Hematologic/Lymphatic: Reports: Easy Bruising ED EXAM, GI/ABD - Physical Exam Exam: See Below Exam Limited By: No Limitations General Appearance: Alert, WD/WN, No Apparent Distress, Cachetic, Other ( moderate dehydrated) Eyes: Bilateral: EOMI, Pale Conjunctiva (has jaundice on the sclera) Ears: Normal External Exam Nose: Normal Inspection Throat/Mouth: Normal Inspection Head: Normocephalic Neck: Supple, Non-Tender, Full Range of Motion Respiratory/Chest: No Respiratory Distress, Lungs Clear, Decreased Breath Sounds Cardiovascular: Regular Rate, Rhythm GI/Abdominal Exam: Soft, Non-Tender, Distended, Other (jaundice) Back Exam: Normal Inspection Extremities: Normal Range of Motion. No: Pedal Edema Neurological: Alert, Oriented Psychiatric: Normal Affect Skin Exam: Warm, Jaundice (face to trunck) Lymphatic: No Adenopathy Course - Vital Signs Last Recorded V/S: Last Vital Signs Temp 36.3 C 12/24/19 16:49 Pulse 82 12/24/19 17:33 Resp 18 12/24/19 17:33 BP 115/69 12/24/19 17:33 Pulse Ox 100 12/24/19 17:33 - Orders/Labs/Meds Orders: Active Orders 24 hr Category Date Time Status Abdomen Pelvis w Cont [CT] Stat Exams 12/24/19 15:42 Taken HEPATITIS PANEL (4) Stat Lab 12/24/19 15:32 Received Sodium Chloride 0.9% [Normal Saline] 500 ml Med 12/24/19 12:30 Active IV ASDIRECTED Sodium Chloride 0.9% [Normal Saline] 500 ml Med 12/24/19 15:15 Active IV ASDIRECTED Medication Orders Docusate Sodium (Colace) 200 mg PO DAILY PRN PRN Reason: Constipation Sodium Chloride (Normal Saline) 500 mls @ 500 mls/hr IV ASDIRECTED JANELL Last Admin: 12/24/19 12:57 Dose: 500 mls/hr Sodium Chloride (Normal Saline) 500 mls @ 500 mls/hr IV ASDIRECTED JANELL Last Admin: 12/24/19 15:10 Dose: 500 mls/hr Magnesium Hydroxide (Milk Of Magnesia) 30 ml PO BID PRN PRN Reason: Constipation Pneumococcal Polyvalent Vaccine (Pneumovax 23) 0.5 ml IM .ONCE ONE Stop: 12/24/19 18:43 Potassium Chloride (Klor-Con M20) 20 meq PO BID JANELL Thiamine HCl (Vitamin B-1) 100 mg PO DAILY JANELL Labs: Laboratory Tests 12/24/19 12/24/19 12/24/19 Range/Units 12:50 12:50 12:50 WBC 8.3 (4.5-12.0) X10-3/uL RBC 3.57 L (4.30-5.75) x10(6)uL Hgb 12.9 L (13.5-17.8) g/dL Hct 37.3 (30.0-51.3) % MCV 104.5 H (80-96) fL MCH 36.1 H (27.7-33.6) pg MCHC 34.5 (32.2-35.4) g/dL RDW 14.4 (11.5-15.5) % Plt Count 278 (125-369) X10(3)uL MPV 8.2 (7.4-10.4) fL Add Manual Diff Yes Neutrophils % (Manual) 65 (46-82) % Lymphocytes % (Manual) 21 (13-37) % Monocytes % (Manual) 8 (4-12) % Eosinophils % (Manual) 5 (0-5) % Basophils % (Manual) 1 (0-2) % Macrocytosis Moderate H Sodium 136 (135-145) mmol/L Potassium 3.3 L (3.5-5.3) mmol/L Chloride 98 L D (100-110) mmol/L Carbon Dioxide 31 (21-32) mmol/L BUN 17 (7-18) mg/dL Creatinine 1.5 H (0.70-1.30) mg/dL Est Cr Clr Drug Dosing 42.55 mL/min Estimated GFR (MDRD) 46 L (>60) BUN/Creatinine Ratio 11.3 (9-20) Glucose 128 H (80-116) mg/dL Calcium 9.1 (8.6-10.2) mg/dL C-Reactive Protein (0.5-0.9) mg/dL NT-Pro-B Natriuret Pep 147 (<=450) pg/mL Amylase (25-115) U/L Lipase (73-393) U/L 12/24/19 12/24/19 12/24/19 Range/Units 12:50 15:32 15:32 WBC (4.5-12.0) X10-3/uL RBC (4.30-5.75) x10(6)uL Hgb (13.5-17.8) g/dL Hct (30.0-51.3) % MCV (80-96) fL MCH (27.7-33.6) pg MCHC (32.2-35.4) g/dL RDW (11.5-15.5) % Plt Count (125-369) X10(3)uL MPV (7.4-10.4) fL Add Manual Diff Neutrophils % (Manual) (46-82) % Lymphocytes % (Manual) (13-37) % Monocytes % (Manual) (4-12) % Eosinophils % (Manual) (0-5) % Basophils % (Manual) (0-2) % Macrocytosis Sodium (135-145) mmol/L Potassium 3.0 L (3.5-5.3) mmol/L Chloride (100-110) mmol/L Carbon Dioxide (21-32) mmol/L BUN (7-18) mg/dL Creatinine 1.5 H (0.70-1.30) mg/dL Est Cr Clr Drug Dosing 42.55 mL/min Estimated GFR (MDRD) 46 L (>60) BUN/Creatinine Ratio (9-20) Glucose (80-116) mg/dL Calcium (8.6-10.2) mg/dL C-Reactive Protein 1.6 H (0.5-0.9) mg/dL NT-Pro-B Natriuret Pep (<=450) pg/mL Amylase (25-115) U/L Lipase (73-393) U/L 12/24/19 12/24/19 Range/Units 15:32 15:32 WBC (4.5-12.0) X10-3/uL RBC (4.30-5.75) x10(6)uL Hgb (13.5-17.8) g/dL Hct (30.0-51.3) % MCV (80-96) fL MCH (27.7-33.6) pg MCHC (32.2-35.4) g/dL RDW (11.5-15.5) % Plt Count (125-369) X10(3)uL MPV (7.4-10.4) fL Add Manual Diff Neutrophils % (Manual) (46-82) % Lymphocytes % (Manual) (13-37) % Monocytes % (Manual) (4-12) % Eosinophils % (Manual) (0-5) % Basophils % (Manual) (0-2) % Macrocytosis Sodium (135-145) mmol/L Potassium (3.5-5.3) mmol/L Chloride (100-110) mmol/L Carbon Dioxide (21-32) mmol/L BUN (7-18) mg/dL Creatinine (0.70-1.30) mg/dL Est Cr Clr Drug Dosing mL/min Estimated GFR (MDRD) (>60) BUN/Creatinine Ratio (9-20) Glucose (80-116) mg/dL Calcium (8.6-10.2) mg/dL C-Reactive Protein (0.5-0.9) mg/dL NT-Pro-B Natriuret Pep (<=450) pg/mL Amylase 19 L (25-115) U/L Lipase 163 (73-393) U/L Meds: Medications Generic Name Dose Route Start Last Admin Trade Name Freq PRN Reason Stop Dose Admin Docusate Sodium 200 mg 12/24/19 17:02 Colace PO DAILY PRN Constipation Sodium Chloride 500 mls @ 500 mls/hr 12/24/19 12:30 12/24/19 12:57 Normal Saline IV 500 mls/hr ASDIRECTED JANELL Administration Sodium Chloride 500 mls @ 500 mls/hr 12/24/19 15:15 12/24/19 15:10 Normal Saline IV 500 mls/hr ASDIRECTED JANELL Administration Magnesium Hydroxide 30 ml 12/24/19 17:02 Milk Of Magnesia PO BID PRN Constipation Pneumococcal Polyvalent Vaccine 0.5 ml 12/24/19 18:42 Pneumovax 23 IM 12/24/19 18:43 .ONCE ONE Potassium Chloride 20 meq 12/24/19 17:15 Klor-Con M20 PO BID JANELL Thiamine HCl 100 mg 12/24/19 17:15 Vitamin B-1 PO DAILY JANELL Discontinued Medications Generic Name Dose Route Start Last Admin Trade Name Freq PRN Reason Stop Dose Admin Atenolol 100 mg 12/24/19 17:15 12/24/19 18:27 Tenormin PO Not Given DAILY JANELL Diatrizoate Meglum/Diatrizoate Sod 30 ml 12/24/19 16:27 12/24/19 17:40 Gastrografin 37% PO 12/24/19 16:28 30 ml . DIRECTED ONE Administration Enalapril Maleate 10 mg 12/24/19 17:15 12/24/19 18:27 Vasotec PO Not Given DAILY JANELL Iopamidol 85 ml 12/24/19 16:02 12/24/19 17:40 Isovue-370 (76%) IV 12/24/19 16:03 85 ml . DIRECTED ONE Administration Potassium Chloride 40 meq 12/24/19 14:54 12/24/19 14:59 Klor-Con M20 PO 12/24/19 14:55 40 meq ONETIME ONE Administration - Re-Assessments/Exams Free Text/Narrative Re-Assessment/Exam: 12/24/19 16:01 pt presented for weakness , has dry cough , very dehydrated Called EMS as he had vomited yesterday and today had diarrhea started on IVF, given K supplement 12/24/19 18:50 CT of the abdomen done 12/24/19 18:53 pt signed off to Dr Victor Departure - Departure Time of Disposition: 18:40 Disposition: Admitted As Inpatient 65 Clinical Impression: Failure to thrive in adult, ETOH abuse, Moderate dehydration Clinical Impression: (Ruled Out): Dehydration with hyponatremia - Discharge Information *PRESCRIPTION DRUG MONITORING PROGRAM REVIEWED*: Not Applicable *COPY OF PRESCRIPTION DRUG MONITORING REPORT IN PATIENT SOFY: Not Applicable Sepsis Event Note - Evaluation Sepsis Screening Result: No Definite Risk - Focused Exam Vital Signs: Vital Signs Temp Temp Pulse Resp BP Pulse Ox 12/24/19 16:49 36.3 C 89 18 118/74 99 12/24/19 12:05 35.6 C L 99 20 122/75 100 Date Exam was Performed: 12/24/19 Time Exam was Performed: 18:53 - My Orders Last 24 Hours: My Active Orders 12/24/19 12:30 Sodium Chloride 0.9% [Normal Saline] 500 ml IV ASDIRECTED 12/24/19 15:15 Sodium Chloride 0.9% [Normal Saline] 500 ml IV ASDIRECTED 12/24/19 15:32 HEPATITIS PANEL (4) Stat 12/24/19 15:42 Abdomen Pelvis w Cont [CT] Stat - Assessment/Plan Last 24 Hours: My Active Orders 12/24/19 12:30 Sodium Chloride 0.9% [Normal Saline] 500 ml IV ASDIRECTED 12/24/19 15:15 Sodium Chloride 0.9% [Normal Saline] 500 ml IV ASDIRECTED 12/24/19 15:32 HEPATITIS PANEL (4) Stat 12/24/19 15:42 Abdomen Pelvis w Cont [CT] Stat
[2019-12-24] MEDS ORDERED: Potassium Chloride 20 MEQ Tab.ER PO ONE (14:54)
[2019-12-24] MEDS ORDERED: Iopamidol 755 Mg/ML 100 ML Bottle IV ONE (16:02)
[2019-12-24] MEDS ORDERED: Diatrizoate Meglumine/Diatrizoate Sodium 37% 30 ML Bottle PO ONE (16:27)
[2019-12-24] MEDS ORDERED: Magnesium Hydroxide 400 MG/5 ML Susp 30 ML Cup PO PRN (17:02)
[2019-12-24] MEDS ORDERED: Docusate Sodium 100 MG Cap PO PRN (17:02)
[2019-12-24] MEDS ORDERED: Pneumococcal Polyvalent-23 Vaccine 0.5 ML SDV IM ONE (18:42)
--- NOTE | 2019-12-24 19:41 | CT ---
INDICATION: Jaundice, feeling nauseated, loose stools. CT ABDOMEN AND PELVIS WITHOUT AND WITH CONTRAST AND FOUR PHASE LIVER EXAMINATION : Spiral 3.75 mm axial images were obtained through the liver and through the abdomen and pelvis depending upon the phase. Scans were obtained through the liver without and with at 30 seconds and also at 4 minutes through the abdomen and at 90 seconds through the abdomen and pelvis. Sagittal and coronal reconstructions were obtained. Examination was obtained 12/24/2019 and compared with 12/06/2018. Total exam DLP was 1960.26 mGy/cm. In the lower lung beard and pleural spaces visualized, there is pleuroparenchymal change with a small to moderate size pleural effusion at the right lung base and some minimal infiltrate at the right lower lobe also raising question of pneumonia and pleuritis. This should be correlated clinically. The heart appeared normal in size. No pericardial effusion was seen. Overall density of the liver appears to be normal to slightly decreased. The liver is significantly decreased in size compared with the previous examination with slightly irregular surface compatible with cirrhosis of the liver. The spleen may be just slightly increased in size compared with the previous examination. Abdominal ascites is moderately severe extending into the pelvis. There is again noted a heterogeneous low density mass at the right adrenal gland which may represent a myelolipoma which now measures 68.9 x 86.2 mm in the sagittal projection compared with 76.9 x 66.7 mm on the previous examination. This is compatible with a slight increase in size. Likely this represents a benign structure. Continued followup may be warranted, however. No focal liver lesions were identified to suggest other than benign disease. Multiple low density lesions in the left kidney are compatible with simple cysts. They appear to be similar to the previous examination. There is also a moderate density tiny lesion exophytically off the posterior cortex of the lower middle pole of the left kidney which was present previously and does not appear significantly changed, compatible with a benign structure also. The pancreas and left adrenal appeared normal. No additional retroperitoneal mass was identified. Calcifications were noted in the arteries. Severe bridging hyperostotic changes are noted from L2 through S1. There appears to be some disc disease especially at L2-3 with vacuum disc phenomena at that level and likely at L4-5 with slight narrowing of the disc space. Somewhat flowing hyperostotic change in the thoracolumbar spine suggests possibility of DISH. There is slight thickening of the wall of the urinary bladder which could be on the basis of cystitis and should be correlated clinically. What appears to be the gallbladder is contracted with a few air bubbles in it, very similar to the previous examination. There appears to be mild thickening of the gastric antral wall which could be on the basis of peptic ulcer disease which should be correlated clinically also. The appendix is not definitely visualized. No evidence of free air or definite bowel obstruction was seen. Contrast flows through the small bowel to the distal small bowel but does not extend into the colon at this time. There appears to be a fairly large amount of fluid in the colon compatible with the patient's history of diarrhea. No specific site of bowel obstruction was identified, however. IMPRESSION: 1. Cirrhosis of the liver with moderately severe abdominal ascites. 2. ASD. 3. 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 4. Cystic changes appear fairly stable left kidney. 5. Very slightly increased size of what appears to be a myelolipoma of the right adrenal gland. This likely is benign but should be considered clinically if pain arises in that area. 6. Fluid-filled colon compatible with the patient's history of diarrhea. No definite bowel obstruction at this time. 7. Possible pneumonia and pleuritis at the right lung base with moderate-sized pleural effusion which could be at least partly on the basis of the patient's abdominal ascites. 8. There is suggestion of some thickening of the wall of the rectum which could be on the basis of colitis - possibly ulcerative colitis and should be correlated clinically. 9. Thickening of the urinary bladder wall is suggested which may be on the basis of cystitis - the prostate is prominent but not grossly enlarged with a maximum diameter of 44 mm transversely. 10. Distal descending and sigmoid diverticulosis without evidence of diverticulitis is again present. Report was called to Dr. Perales at approximately 1900 hours. [facility]
[2019-12-24] MEDS: Potassium Chloride 20 MEQ Tab.ER PO SCH ×2 (20:57)
[2019-12-24] MEDS: Thiamine 100 MG Tab PO SCH (20:58)
[2019-12-25] MEDS: Potassium Chloride 20 MEQ Tab.ER PO SCH (08:49)
[2019-12-25] MEDS: Thiamine 100 MG Tab PO SCH (08:49)
--- NOTE | 2019-12-25 09:14 | PCM.HP.2 ---
H&P History of Present Illness - General Date of Service: 12/25/19 Admit Problem/Dx: Admission Diagnosis/Problem Admission Diagnosis/Problem Failure to thrive in adult Source of Information: Patient, Old Records History Limitations: Reports: Uncooperative - History of Present Illness Initial Comments - Free Text/Narative: this is a 74-year-old with a history of alcoholic cirrhosis. He lives by him and is been lots of falls feeling weak and some diarrhea and came and they felt he was dehydrated. He was hospitalized last month and [place] for the same condition. He was found to have ascites and cirrhosis on his CAT scan. He had a adrenal mass most likely benign. Questionable infiltrate right lower lobe some pleural effusion. He is blood when he speaks. He says he is weak but he doesn't really know why he is here. Ammonia level was done ER this pending. Patient was noted in the ER to be jaundice and he didn't know 6. He denies chest pain, cough , shortness of breath, dysuria, pyuria, hematuria, nausea, vomiting. - Related Data Allergies/Adverse Reactions: Allergies Allergy/AdvReac Type Severity Reaction Status Date / Time No Known Allergies Allergy Verified 12/24/19 12:13 Home Medications: Home Meds Potassium Chloride [Klor-Con M20] 20 meq PO BID 3 Days #60 tab.er 12/09/18 [Rx] Furosemide 1 tab PO DAILY 12/24/19 [History] Lactulose 15 ml PO BID 12/24/19 [History] Spironolactone 150 mg PO BID 12/24/19 [History] Tamsulosin HCl 1 cap PO BEDTIME 12/24/19 [History] Past Medical History - Past Health History Medical/Surgical History: Denies Medical/Surgical History HEENT History: Reports: Impaired Vision Cardiovascular History: Reports: Hypertension Gastrointestinal History: Reports: Cirrhosis Musculoskeletal History: Reports: Gout Other Musculoskeletal History: LEFT LEG FRACTURE Neurological History: Reports: Head Trauma - Infectious Disease History Infectious Disease History: Reports: Chicken Pox Social & Family History - Family History Family Medical History: Unobtainable - Tobacco Use Smoking Status *Q: Never Smoker Used Tobacco, but Quit: Yes Month/Year Tobacco Last Used: 1959 - Caffeine Use Caffeine Use: Reports: None - Recreational Drug Use Recreational Drug Use: No H&P Review of Systems - Review of Systems: Review Of Systems: See Below General: Reports: Weakness, Fatigue, Other (Falls) HEENT: Reports: No Symptoms Pulmonary: Reports: No Symptoms Cardiovascular: Reports: No Symptoms Gastrointestinal: Reports: No Symptoms Genitourinary: Reports: No Symptoms Musculoskeletal: Reports: No Symptoms Skin: Reports: Other (He has a bump over his left lower jara. He says his been there for years. The nurses noted this. He does not care about it.) Exam - Exam Exam: See Below - Vital Signs Vital Signs: Last Vital Signs Temp 97.8 F 12/25/19 05:00 Pulse 90 12/25/19 05:00 Resp 16 12/25/19 05:00 BP 114/61 12/25/19 05:00 Pulse Ox 97 12/25/19 05:00 Weight: 164 lb 12.8 oz - Exam General: Alert, Other (He is cooperative but blunt) HEENT: Mucosa Moist & [place], TMs Clear, Scleral Icterus Neck: Supple, Trachea Midline Lungs: Clear to Auscultation, Normal Respiratory Effort Cardiovascular: Regular Rate, Regular Rhythm. No: Systolic Murmur GI/Abdominal Exam: Normal Bowel Sounds, Soft, Non-Tender, No Organomegaly, No Distention, No Abnormal Bruit, No Mass Back Exam: Normal Inspection, Full Range of Motion Skin: Warm, Dry, Intact, Other (Jaundiced, a 2 cm hard bump midshaft left tibia with some erythema around it [place].) Neuro Extensive - Mental Status: Alert. No: Normal Cognition Psychiatric: Alert, Other (Blunt affect) - Patient Data Lab Results Last 24 hrs: Laboratory Results - last 24 hr 12/24/19 12/24/19 12/24/19 Range/Units 12:50 12:50 12:50 WBC 8.3 (4.5-12.0) X10-3/uL RBC 3.57 L (4.30-5.75) x10(6)uL Hgb 12.9 L (13.5-17.8) g/dL Hct 37.3 (30.0-51.3) % MCV 104.5 H (80-96) fL MCH 36.1 H (27.7-33.6) pg MCHC 34.5 (32.2-35.4) g/dL RDW 14.4 (11.5-15.5) % Plt Count 278 (125-369) X10(3)uL MPV 8.2 (7.4-10.4) fL Neut % (Auto) (46-82) % Lymph % (Auto) (13-37) % [place] % (Auto) (4-12) % Eos % (Auto) (1.0-5.0) % Baso % (Auto) (0-2) % Neut # (Auto) (1.6-8.3) # Lymph # (Auto) (0.6-5.0) # [place] # (Auto) (0.0-1.3) # Eos # (Auto) (0.0-0.8) # Baso # (Auto) (0.0-0.2) # Add Manual Diff Yes Neutrophils % (Manual) 65 (46-82) % Lymphocytes % (Manual) 21 (13-37) % Monocytes % (Manual) 8 (4-12) % Eosinophils % (Manual) 5 (0-5) % Basophils % (Manual) 1 (0-2) % Macrocytosis Moderate H PT (9.0-11.1) sec INR (1.00-1.24) Sodium 136 (135-145) mmol/L Potassium 3.3 L (3.5-5.3) mmol/L Chloride 98 L D (100-110) mmol/L Carbon Dioxide 31 (21-32) mmol/L BUN 17 (7-18) mg/dL Creatinine 1.5 H (0.70-1.30) mg/dL Est Cr Clr Drug Dosing 42.55 mL/min Estimated GFR (MDRD) 46 L (>60) BUN/Creatinine Ratio 11.3 (9-20) Glucose 128 H (80-116) mg/dL Calcium 9.1 (8.6-10.2) mg/dL Total Bilirubin (0.1-1.3) mg/dL AST (5-25) IU/L ALT (12-36) U/L Alkaline Phosphatase (56-112) IU/L C-Reactive Protein (0.5-0.9) mg/dL NT-Pro-B Natriuret Pep 147 (<=450) pg/mL Total Protein (6.0-8.0) g/dL Albumin (3.2-4.6) g/dL Globulin g/dL Albumin/Globulin Ratio Amylase (25-115) U/L Lipase (73-393) U/L 12/24/19 12/24/19 12/24/19 Range/Units 12:50 15:32 15:32 WBC (4.5-12.0) X10-3/uL RBC (4.30-5.75) x10(6)uL Hgb (13.5-17.8) g/dL Hct (30.0-51.3) % MCV (80-96) fL MCH (27.7-33.6) pg MCHC (32.2-35.4) g/dL RDW (11.5-15.5) % Plt Count (125-369) X10(3)uL MPV (7.4-10.4) fL Neut % (Auto) (46-82) % Lymph % (Auto) (13-37) % [place] % (Auto) (4-12) % Eos % (Auto) (1.0-5.0) % Baso % (Auto) (0-2) % Neut # (Auto) (1.6-8.3) # Lymph # (Auto) (0.6-5.0) # [place] # (Auto) (0.0-1.3) # Eos # (Auto) (0.0-0.8) # Baso # (Auto) (0.0-0.2) # Add Manual Diff Neutrophils % (Manual) (46-82) % Lymphocytes % (Manual) (13-37) % Monocytes % (Manual) (4-12) % Eosinophils % (Manual) (0-5) % Basophils % (Manual) (0-2) % Macrocytosis PT (9.0-11.1) sec INR (1.00-1.24) Sodium (135-145) mmol/L Potassium 3.0 L (3.5-5.3) mmol/L Chloride (100-110) mmol/L Carbon Dioxide (21-32) mmol/L BUN (7-18) mg/dL Creatinine 1.5 H (0.70-1.30) mg/dL Est Cr Clr Drug Dosing 42.55 mL/min Estimated GFR (MDRD) 46 L (>60) BUN/Creatinine Ratio (9-20) Glucose (80-116) mg/dL Calcium (8.6-10.2) mg/dL Total Bilirubin (0.1-1.3) mg/dL AST (5-25) IU/L ALT (12-36) U/L Alkaline Phosphatase (56-112) IU/L C-Reactive Protein 1.6 H (0.5-0.9) mg/dL NT-Pro-B Natriuret Pep (<=450) pg/mL Total Protein (6.0-8.0) g/dL Albumin (3.2-4.6) g/dL Globulin g/dL Albumin/Globulin Ratio Amylase (25-115) U/L Lipase (73-393) U/L 12/24/19 12/24/19 12/25/19 Range/Units 15:32 15:32 06:03 WBC 10.0 (4.5-12.0) X10-3/uL RBC 3.14 L (4.30-5.75) x10(6)uL Hgb 11.1 L (13.5-17.8) g/dL Hct 32.5 (30.0-51.3) % MCV 103.6 H (80-96) fL MCH 35.5 H (27.7-33.6) pg MCHC 34.3 (32.2-35.4) g/dL RDW 14.7 (11.5-15.5) % Plt Count 229 (125-369) X10(3)uL MPV 8.3 (7.4-10.4) fL Neut % (Auto) 56.9 (46-82) % Lymph % (Auto) 19.7 (13-37) % [place] % (Auto) 15.6 H (4-12) % Eos % (Auto) 4 (1.0-5.0) % Baso % (Auto) 3 H (0-2) % Neut # (Auto) 5.7 (1.6-8.3) # Lymph # (Auto) 2.0 (0.6-5.0) # [place] # (Auto) 1.6 H (0.0-1.3) # Eos # (Auto) 0.4 (0.0-0.8) # Baso # (Auto) 0.3 H (0.0-0.2) # Add Manual Diff Neutrophils % (Manual) (46-82) % Lymphocytes % (Manual) (13-37) % Monocytes % (Manual) (4-12) % Eosinophils % (Manual) (0-5) % Basophils % (Manual) (0-2) % Macrocytosis PT (9.0-11.1) sec INR (1.00-1.24) Sodium (135-145) mmol/L Potassium (3.5-5.3) mmol/L Chloride (100-110) mmol/L Carbon Dioxide (21-32) mmol/L BUN (7-18) mg/dL Creatinine (0.70-1.30) mg/dL Est Cr Clr Drug Dosing mL/min Estimated GFR (MDRD) (>60) BUN/Creatinine Ratio (9-20) Glucose (80-116) mg/dL Calcium (8.6-10.2) mg/dL Total Bilirubin (0.1-1.3) mg/dL AST (5-25) IU/L ALT (12-36) U/L Alkaline Phosphatase (56-112) IU/L C-Reactive Protein (0.5-0.9) mg/dL NT-Pro-B Natriuret Pep (<=450) pg/mL Total Protein (6.0-8.0) g/dL Albumin (3.2-4.6) g/dL Globulin g/dL Albumin/Globulin Ratio Amylase 19 L (25-115) U/L Lipase 163 (73-393) U/L 12/25/19 12/25/19 Range/Units 06:03 06:03 WBC (4.5-12.0) X10-3/uL RBC (4.30-5.75) x10(6)uL Hgb (13.5-17.8) g/dL Hct (30.0-51.3) % MCV (80-96) fL MCH (27.7-33.6) pg MCHC (32.2-35.4) g/dL RDW (11.5-15.5) % Plt Count (125-369) X10(3)uL MPV (7.4-10.4) fL Neut % (Auto) (46-82) % Lymph % (Auto) (13-37) % [place] % (Auto) (4-12) % Eos % (Auto) (1.0-5.0) % Baso % (Auto) (0-2) % Neut # (Auto) (1.6-8.3) # Lymph # (Auto) (0.6-5.0) # [place] # (Auto) (0.0-1.3) # Eos # (Auto) (0.0-0.8) # Baso # (Auto) (0.0-0.2) # Add Manual Diff Neutrophils % (Manual) (46-82) % Lymphocytes % (Manual) (13-37) % Monocytes % (Manual) (4-12) % Eosinophils % (Manual) (0-5) % Basophils % (Manual) (0-2) % Macrocytosis PT 14.0 H (9.0-11.1) sec INR 1.45 H (1.00-1.24) Sodium 135 (135-145) mmol/L Potassium 4.5 D (3.5-5.3) mmol/L Chloride 100 (100-110) mmol/L Carbon Dioxide 28 (21-32) mmol/L BUN 12 (7-18) mg/dL Creatinine 1.3 (0.70-1.30) mg/dL Est Cr Clr Drug Dosing 49.10 mL/min Estimated GFR (MDRD) 54 L (>60) BUN/Creatinine Ratio 9.2 (9-20) Glucose 106 (80-116) mg/dL Calcium 8.4 L (8.6-10.2) mg/dL Total Bilirubin 5.4 H (0.1-1.3) mg/dL AST 68 H D (5-25) IU/L ALT 43 H (12-36) U/L Alkaline Phosphatase 103 (56-112) IU/L C-Reactive Protein (0.5-0.9) mg/dL NT-Pro-B Natriuret Pep (<=450) pg/mL Total Protein 6.6 (6.0-8.0) g/dL Albumin 2.2 L (3.2-4.6) g/dL Globulin 4.4 g/dL Albumin/Globulin Ratio 0.5 Amylase (25-115) U/L Lipase (73-393) U/L Result Diagrams: 12/25/19 06:03 12/25/19 06:03 Sepsis Event Note - Evaluation Sepsis Screening Result: No Definite Risk - Focused Exam Vital Signs: Vital Signs Temp Pulse Resp BP Pulse Ox 12/25/19 05:00 97.8 F 90 16 114/61 97 12/25/19 01:00 98.1 F 85 18 101/60 99 Date Exam was Performed: 12/25/19 Time Exam was Performed: 09:08 - Problem List (1) Ascites SNOMED Code(s): 009603002 ICD Code: R18.8 - OTHER ASCITES Status: Acute Current Visit: Yes (2) ETOH abuse SNOMED Code(s): 58837106 ICD Code: F10.10 - ALCOHOL ABUSE, UNCOMPLICATED Status: Acute Current Visit: Yes (3) Moderate dehydration SNOMED Code(s): 1578699422656 ICD Code: E86.0 - DEHYDRATION Status: Acute Current Visit: Yes (4) Alcoholic liver disease SNOMED Code(s): 24828233 ICD Code: K70.9 - ALCOHOLIC LIVER DISEASE, UNSPECIFIED Status: Acute Current Visit: No (5) Anorexia SNOMED Code(s): 47283374 ICD Code: R63.0 - ANOREXIA Status: Acute Current Visit: No (6) CAP (community acquired pneumonia) SNOMED Code(s): 045379271 ICD Code: J18.9 - PNEUMONIA, UNSPECIFIED ORGANISM Status: Acute Current Visit: No Qualifiers: Laterality: unspecified laterality Qualified Code(s): J18.9 - Pneumonia, unspecified organism (7) Failure to thrive SNOMED Code(s): 21963916 ICD Code: QWB9652 - Status: Acute Current Visit: No (8) Hypokalemia SNOMED Code(s): 99044304 ICD Code: E87.6 - HYPOKALEMIA Status: Acute Current Visit: No (9) Palliative care encounter SNOMED Code(s): 893234261 ICD Code: Z51.5 - ENCOUNTER FOR PALLIATIVE CARE Status: Acute Current Visit: No Problem List Initiated/Reviewed/Updated: Yes Orders Last 24hrs: Active Orders 24 hr Category Date Time Status Patient Status [ADT] Routine ADT 12/24/19 17:02 Active Antiembolic Devices [RC] .Routine Care 12/24/19 17:03 Active Height and Weight [RC] 06 Care 12/24/19 17:02 Active Intake and Output [RC] QSHIFT Care 12/24/19 17:04 Active Pulse Oximetry [RC] PRN Care 12/24/19 17:02 Active Up With Assistance [RC] ASDIRECTED Care 12/24/19 17:02 Active VTE/DVT Education [RC] Click to Edit Care 12/24/19 17:03 Active Vital Signs [RC] Q4H Care 12/24/19 17:02 Active Regular Diet [DIET] Diet 12/24/19 Dinner Active HEPATITIS PANEL (4) Stat Lab 12/24/19 15:32 Received Docusate Sodium [Colace] Med 12/24/19 17:02 Active 200 mg PO DAILY PRN Furosemide [Lasix] Med 12/26/19 09:00 Ordered 1 tab PO DAILY Lactulose [Lactulose] Med 12/25/19 21:00 Ordered 15 ml PO BID Magnesium Hydroxide [Milk of Magnesia] Med 12/24/19 17:02 Active 30 ml PO BID PRN Spironolactone [Aldactone] Med 12/26/19 09:00 Ordered 150 mg PO DAILY Tamsulosin [Flomax] Med 12/25/19 21:00 Ordered 1 cap PO BEDTIME Thiamine [Vitamin B-1] Med 12/24/19 17:15 Active 100 mg PO DAILY DVT/VTE Prophylaxis Reflex [OM.PC] Per Unit Routine Oth 12/24/19 17:02 Ordered Resuscitation Status Routine Resus Stat 12/24/19 17:02 Ordered Medication Orders Docusate Sodium (Colace) 200 mg PO DAILY PRN PRN Reason: Constipation Furosemide (Lasix) mg PO DAILY JANELL Magnesium Hydroxide (Milk Of Magnesia) 30 ml PO BID PRN PRN Reason: Constipation Non-Formulary Medication (Lactulose [Lactulose]) 15 ml PO BID JANELL Spironolactone (Aldactone) 150 mg PO DAILY JANELL Tamsulosin HCl (Flomax) mg PO BEDTIME JANELL Thiamine HCl (Vitamin B-1) 100 mg PO DAILY JANELL Last Admin: 12/25/19 08:49 Dose: 100 mg Admin: 12/24/19 20:58 Dose: 100 mg Assessment/Plan Comment:: 1. Admit inpatient 2. IV fluids were given an hour stop. 3. Social service to see. 4. Hold off on Lovenox this time due to his alcoholic cirrhosis. 5. Ammonia level 6. Restart Aldactone at 150 mg once a day and Lasix 40 mg once a day. 7. Regular diet 8. Up with assist 9. Consider consult with surgery. I will discuss this with the patient. - Mortality Measure Prognosis:: Good
[2019-12-25] MEDS: Spironolactone 50 MG Tab PO SCH (10:16)
[2019-12-25] MEDS: Lactulose Soln 10 GM/15 ML 15 ML UD Cup PO SCH ×2 (10:16→20:24)
[2019-12-25] MEDS: Furosemide 40 MG Tab PO SCH (10:17)
[2019-12-25] MEDS: Tamsulosin 0.4 MG Cap.ER PO SCH (20:24)
[2019-12-25] MEDS: guaiFENesin/Dextromethorphan 100-10 MG/5 ML Soln 5 ML Cup PO PRN (23:24)
--- NOTE | 2019-12-26 08:37 | PCM.PN ---
- General Info Date of Service: 12/26/19 Admission Dx/Problem (Free Text): Patient without concerns. He says his strength is not worse he doesn't know if it's any better. He denies fevers, chills, nausea, vomiting, abdominal pain. - Patient Data Vitals - Most Recent: Last Vital Signs Temp 97.5 F 12/26/19 03:55 Pulse 100 12/26/19 03:55 Resp 20 12/26/19 03:55 BP 105/63 12/26/19 03:55 Pulse Ox 96 12/26/19 03:55 Weight - Most Recent: 170 lb 8 oz I&O - Last 24 Hours: Intake & Output 12/25/19 12/26/19 12/26/19 22:59 06:59 14:59 Intake Total 200 200 Output Total 100 100 Balance 100 100 Lab Results Last 24 Hours: Laboratory Results - last 24 hr 12/26/19 12/26/19 Range/Units 06:55 06:55 WBC 10.5 (4.5-12.0) X10-3/uL RBC 3.10 L (4.30-5.75) x10(6)uL Hgb 11.0 L (13.5-17.8) g/dL Hct 32.4 (30.0-51.3) % MCV 104.5 H (80-96) fL MCH 35.6 H (27.7-33.6) pg MCHC 34.0 (32.2-35.4) g/dL RDW 14.5 (11.5-15.5) % Plt Count 195 (125-369) X10(3)uL MPV 9.1 (7.4-10.4) fL Neut % (Auto) 76 (46-82) % Lymph % (Auto) 14 (13-37) % [place] % (Auto) 6 (4-12) % Eos % (Auto) 1 (1.0-5.0) % Baso % (Auto) 2 (0-2) % Neut # (Auto) TNP Lymph # (Auto) TNP [place] # (Auto) TNP Eos # (Auto) TNP Baso # (Auto) TNP Sodium 133 L (135-145) mmol/L Potassium 3.9 (3.5-5.3) mmol/L Chloride 98 L (100-110) mmol/L Carbon Dioxide 25 (21-32) mmol/L BUN 9 (7-18) mg/dL Creatinine 1.2 (0.70-1.30) mg/dL Est Cr Clr Drug Dosing 53.19 mL/min Estimated GFR (MDRD) 59 L (>60) BUN/Creatinine Ratio 7.5 L (9-20) Glucose 111 (80-116) mg/dL Calcium 7.9 L (8.6-10.2) mg/dL Total Bilirubin 5.4 H (0.1-1.3) mg/dL AST 69 H (5-25) IU/L ALT 47 H (12-36) U/L Alkaline Phosphatase 127 H (56-112) IU/L Total Protein 6.7 (6.0-8.0) g/dL Albumin 2.2 L (3.2-4.6) g/dL Globulin 4.5 g/dL Albumin/Globulin Ratio 0.5 Med Orders - Current: Current Medications Docusate Sodium (Colace) 200 mg PO DAILY PRN PRN Reason: Constipation Furosemide (Lasix) 40 mg PO DAILY [facility] Last Admin: 12/25/19 10:17 Dose: 40 mg Guaifenesin/Phenylephrine HCl (Robitussin Dm) 5 ml PO Q4H PRN PRN Reason: Cough Last Admin: 12/25/19 23:24 Dose: 5 ml Lactulose (Chronulac) 10 gm PO BID [facility] Last Admin: 12/25/19 20:24 Dose: 10 gm Magnesium Hydroxide (Milk Of Magnesia) 30 ml PO BID PRN PRN Reason: Constipation Spironolactone (Aldactone) 150 mg PO DAILY [facility] Last Admin: 12/25/19 10:16 Dose: 150 mg Tamsulosin HCl (Flomax) 0.4 mg PO BEDTIME [facility] Last Admin: 12/25/19 20:24 Dose: 0.4 mg Thiamine HCl (Vitamin B-1) 100 mg PO DAILY [facility] Last Admin: 12/25/19 08:49 Dose: 100 mg Discontinued Medications Atenolol (Tenormin) 100 mg PO DAILY [facility] Last Admin: 12/24/19 18:27 Dose: Not Given Diatrizoate Meglum/Diatrizoate Sod (Gastrografin 37%) 30 ml PO . DIRECTED ONE Stop: 12/24/19 16:28 Last Admin: 12/24/19 17:40 Dose: 30 ml Enalapril Maleate (Vasotec) 10 mg PO DAILY [facility] Last Admin: 12/24/19 18:27 Dose: Not Given Sodium Chloride (Normal Saline) 500 mls @ 500 mls/hr IV ASDIRECTED [facility] Last Admin: 12/24/19 12:57 Dose: 500 mls/hr Sodium Chloride (Normal Saline) 500 mls @ 500 mls/hr IV ASDIRECTED [facility] Last Admin: 12/24/19 15:10 Dose: 500 mls/hr Iopamidol (Isovue-370 (76%)) 85 ml IV . DIRECTED ONE Stop: 12/24/19 16:03 Last Admin: 12/24/19 17:40 Dose: 85 ml Pneumococcal Polyvalent Vaccine (Pneumovax 23) 0.5 ml IM .ONCE ONE Stop: 12/24/19 18:43 Potassium Chloride (Klor-Con M20) 40 meq PO ONETIME ONE Stop: 12/24/19 14:55 Last Admin: 12/24/19 14:59 Dose: 40 meq Potassium Chloride (Klor-Con M20) 20 meq PO BID [facility] Last Admin: 12/25/19 08:49 Dose: 20 meq - Exam General: Alert, Oriented, Cooperative Lungs: Clear to Auscultation, Normal Respiratory Effort Cardiovascular: Regular Rate, Regular Rhythm, No Murmurs Extremities: No Pedal Edema Skin: Other (Jaundice) Sepsis Event Note - Evaluation Sepsis Screening Result: No Definite Risk - Focused Exam Vital Signs: Vital Signs Temp Pulse Resp BP Pulse Ox 12/26/19 03:55 97.5 F 100 20 105/63 96 12/26/19 00:00 98.4 F 95 18 104/60 94 L Date Exam was Performed: 12/26/19 Time Exam was Performed: 08:33 - Problem List & Annotations (1) Ascites SNOMED Code(s): 297777568 Code(s): R18.8 - OTHER ASCITES Status: Acute Current Visit: Yes (2) ETOH abuse SNOMED Code(s): 70887776 Code(s): F10.10 - ALCOHOL ABUSE, UNCOMPLICATED Status: Acute Current Visit: Yes (3) Moderate dehydration SNOMED Code(s): 6389718596066 Code(s): E86.0 - DEHYDRATION Status: Acute Current Visit: Yes (4) Alcoholic liver disease SNOMED Code(s): 35858849 Code(s): K70.9 - ALCOHOLIC LIVER DISEASE, UNSPECIFIED Status: Acute Current Visit: No (5) Anorexia SNOMED Code(s): 94189034 Code(s): R63.0 - ANOREXIA Status: Acute Current Visit: No (6) CAP (community acquired pneumonia) SNOMED Code(s): 624042848 Code(s): J18.9 - PNEUMONIA, UNSPECIFIED ORGANISM Status: Acute Current Visit: No Qualifiers: Laterality: unspecified laterality Qualified Code(s): J18.9 - Pneumonia, unspecified organism (7) Failure to thrive SNOMED Code(s): 76324631 Code(s): FFV5345 - Status: Acute Current Visit: No (8) Hypokalemia SNOMED Code(s): 97687239 Code(s): E87.6 - HYPOKALEMIA Status: Acute Current Visit: No (9) Palliative care encounter SNOMED Code(s): 711855639 Code(s): Z51.5 - ENCOUNTER FOR PALLIATIVE CARE Status: Acute Current Visit: No (10) Physical deconditioning SNOMED Code(s): 76258303550462 Code(s): R53.81 - OTHER [place] Status: Acute Current Visit: Yes - Problem List Review Problem List Initiated/Reviewed/Updated: Yes - My Orders Last 24 Hours: My Active Orders 12/25/19 10:00 Furosemide [Lasix] 40 mg PO DAILY Lactulose [Chronulac] 10 gm PO BID Spironolactone [Aldactone] 150 mg PO DAILY 12/25/19 11:15 AMMONIA, PLASMA Routine 12/25/19 15:03 OT Evaluation and Treatment [CONS] Routine PT Evaluation and Treatment [CONS] Routine 12/25/19 21:00 Tamsulosin [Flomax] 0.4 mg PO BEDTIME 12/25/19 23:02 Dextromethorphan/guaiFENesin [Robitussin DM] 5 ml PO Q4H PRN - Plan Plan:: 1. 1. Start Lovenox I am today for VTE prophylaxis. 2. Discussed alf care with the patient again and of course he refuses. 3. PT/OT for strengthening. 4. Jaundice is mildly improved continue his current medications. He came to our attention that he does not take his medicines all-time at home.
[2019-12-26] MEDS: Furosemide 40 MG Tab PO SCH (09:18)
[2019-12-26] MEDS: Spironolactone 50 MG Tab PO SCH (09:18)
[2019-12-26] MEDS: Thiamine 100 MG Tab PO SCH (09:18)
[2019-12-26] MEDS: Lactulose Soln 10 GM/15 ML 15 ML UD Cup PO SCH ×2 (09:19→21:37)
[2019-12-26 12:11] LABS: HBSAG SCREEN Negative (Negative); HEP A AB, IGM Negative (Negative); HEP B CORE AB, IGM Negative (Negative); HEP C VIRUS AB <0.1 s/co ratio (0.0-0.9)
[2019-12-26] MEDS: Enoxaparin 40 MG/0.4 ML Syringe SUBCUT SCH (12:16)
[2019-12-26] MEDS: guaiFENesin/Dextromethorphan 100-10 MG/5 ML Soln 5 ML Cup PO PRN (15:55)
[2019-12-26] MEDS: Tamsulosin 0.4 MG Cap.ER PO SCH (21:37)
[2019-12-27] MEDS: Furosemide 40 MG Tab PO SCH (11:17)
[2019-12-27] MEDS: Lactulose Soln 10 GM/15 ML 15 ML UD Cup PO SCH (11:17)
[2019-12-27] MEDS: Enoxaparin 40 MG/0.4 ML Syringe SUBCUT SCH (11:17)
[2019-12-27] MEDS: Spironolactone 50 MG Tab PO SCH (11:17)
[2019-12-27] MEDS: Thiamine 100 MG Tab PO SCH (11:18)
[2019-12-27] MEDS ORDERED: Tamsulosin 0.4 MG Cap.ER PO SCH (12:00)
--- NOTE | 2019-12-27 15:12 | PCM.DCSUM1 ---
Discharge Summary - Hospital Course HPI Initial Comments: Angel is a 74-year-old with a history of alcoholic cirrhosis. He lives by himself and is been lots of falls feeling weak, some diarrhea and ambulance came and they felt he was dehydrated. He was hospitalized last month and [place] for the same condition. He was found to have ascites and cirrhosis on his CAT scan. He had a adrenal mass most likely benign. Questionable infiltrate right lower lobe some pleural effusion. He is blunt when he speaks. He says he is weak but he doesn't really know why he is here. Ammonia level was done ER this pending. Patient was noted in the ER to be jaundice and he didn't know that. He denies chest pain, cough, shortness of breath, dysuria, pyuria, hematuria, nausea, vomiting. Diagnosis: Stroke: No - Discharge Data Discharge Date: 12/27/19 Discharge Disposition: Home, W Home Health Agency 06 Condition: Stable - Referral to Home Health Date of Face to Face Encounter: 12/27/19 Reason for Homebound Status: cirrhosis, physical deconditioning Primary Care Physician: Reyes Canseco MD Skilled Need: Home Health with medication assistance through [facility]. Palliative care consult for end stage liver disease. - Discharge Diagnosis/Problem(s) (1) Moderate dehydration SNOMED Code(s): 5805695114090 ICD Code: E86.0 - DEHYDRATION Status: Resolved Current Visit: Yes (2) Ascites SNOMED Code(s): 943777762 ICD Code: R18.8 - OTHER ASCITES Status: Chronic Current Visit: Yes Qualifiers: Ascites type: due to alcoholic cirrhosis Qualified Code(s): K70.31 - Alcoholic cirrhosis of liver with ascites (3) ETOH abuse SNOMED Code(s): 41234887 ICD Code: F10.10 - ALCOHOL ABUSE, UNCOMPLICATED Status: Chronic Current Visit: Yes (4) FTT (failure to thrive) in adult SNOMED Code(s): 115945615 ICD Code: R62.7 - ADULT FAILURE TO THRIVE Status: Chronic Current Visit: Yes (5) Physical deconditioning SNOMED Code(s): 79415802061426 ICD Code: R53.81 - OTHER MALAISE Status: Chronic Current Visit: Yes (6) Alcoholic liver disease SNOMED Code(s): 50832072 ICD Code: K70.9 - ALCOHOLIC LIVER DISEASE, UNSPECIFIED Status: Chronic Current Visit: No (7) Palliative care encounter SNOMED Code(s): 156933408 ICD Code: Z51.5 - ENCOUNTER FOR PALLIATIVE CARE Status: Acute Current Visit: No (8) Hypokalemia SNOMED Code(s): 75631600 ICD Code: E87.6 - HYPOKALEMIA Status: Resolved Current Visit: No (9) Hyponatremia SNOMED Code(s): 37819303 ICD Code: E87.1 - HYPO-OSMOLALITY AND HYPONATREMIA Status: Resolved Current Visit: Yes Problem Details: improved to 133 - Patient Summary/Data Consults: Consultations 12/25/19 15:03 OT Evaluation and Treatment [CONS] Routine Please Evaluate and Treat. OT Reason for Consult: Strengthening This query below is only for informational purposes and is not editable. Admission Diagnosis/Problem: Failure to thrive in adult PT Evaluation and Treatment [CONS] Routine Please Evaluate and Treat. PT Reason for Consult: Strengthening This query below is only for informational purposes and is not editable. Admission Diagnosis/Problem: Failure to thrive in adult Hospital Course: Angel was admitted for IVF, correction of potassium and sodium, some confusion on admission, cirrhosis, physical deconditioning. Patient refused NH placement, assisted living, PT, or OT. His potassium and sodium corrected by the . No vomiting or diarrhea further. CT showed some possible colitis to account for his diarrhea. Ammonia level came back within normal limits. Patient states he feels back to his normal and wants to go home. Moved his Tamsulosin up to daily so he can take all his pills at once, does have enlarged prostate on CT. He does have services with [facility], Muna Mccray RN discharge planning called [facility] to get him set up for someone to make sure he takes his medications in the morning. Critical access hospital is already seeing the patient, consult for palliative care for end stage liver disease as outpatient. His acute issues have been corrected so feel appropriate to discharge home with close follow up with his primary. - Patient Instructions Diet: Regular Diet as Tolerated, No Alcoholic Beverages Activity: As Tolerated Notify Provider of: Fever, Increased Pain, Nausea and/or Vomiting Other/Special Instructions: Follow up with Dr Canseco on MondayDecember 31 at 345 pm at [facility]. - Discharge Plan *PRESCRIPTION DRUG MONITORING PROGRAM REVIEWED*: Not Applicable *COPY OF PRESCRIPTION DRUG MONITORING REPORT IN PATIENT SOFY: Not Applicable Home Medications: Home Meds Potassium Chloride [Klor-Con M20] 20 meq PO BID 3 Days #60 tab.er 12/09/18 [Rx] Furosemide 40 mg PO DAILY 12/24/19 [History] Lactulose 15 ml PO BID 12/24/19 [History] Spironolactone 150 mg PO DAILY 12/24/19 [History] Tamsulosin HCl 0.4 cap PO DAILY #0 12/27/19 [Rx] Patient Handouts: Alcohol Abuse and Nutrition Forms: ED Department Discharge Referrals: Reyes Canseco MD [Primary Care Provider] - 01/01/20 3:45 am - Discharge Summary/Plan Comment DC Time >30 min.: Yes - General Info Date of Service: 12/27/19 Subjective Update: Patient is jaundiced, but knew who his nurse was, where he was. He has refused to work with PT/OT. Refused NH admission or assisted living. His potassium and sodium have corrected. Patient feels he is at his baseline and would like to go home. No cough, fevers, shortness of breath, chest pain, questionable pneumonia on CT but not clinically and has not received antibiotics on the floor. No abdominal pain, nausea, vomiting or diarrhea. Left leg sore has been there for 40 years. - Patient Data Vitals - Most Recent: Last Vital Signs Temp 97.8 F 12/27/19 09:00 Pulse 100 12/27/19 13:00 Resp 18 12/27/19 13:00 BP 90/56 L 12/27/19 09:00 Pulse Ox 95 12/27/19 09:00 Weight - Most Recent: 167 lb 14.4 oz I&O - Last 24 hours: Intake & Output 12/26/19 12/27/19 12/27/19 22:59 06:59 14:59 Intake Total 290 Output Total 200 500 Balance 90 -500 Lab Results - Last 24 hrs: Laboratory Results - last 24 hr 12/25/19 Range/Units 11:15 Ammonia 150 (31-169) ug/dL Med Orders - Current: Current Medications Docusate Sodium (Colace) 200 mg PO DAILY PRN PRN Reason: Constipation Enoxaparin Sodium (Lovenox) 40 mg SUBCUT Q24H JANELL Last Admin: 12/27/19 11:17 Dose: 40 mg Furosemide (Lasix) 40 mg PO DAILY [facility] Last Admin: 12/27/19 11:17 Dose: 40 mg Guaifenesin/Phenylephrine HCl (Robitussin Dm) 5 ml PO Q4H PRN PRN Reason: Cough Last Admin: 12/26/19 15:55 Dose: 5 ml Lactulose (Chronulac) 10 gm PO BID [facility] Last Admin: 12/27/19 11:17 Dose: 10 gm Magnesium Hydroxide (Milk Of Magnesia) 30 ml PO BID PRN PRN Reason: Constipation Spironolactone (Aldactone) 150 mg PO DAILY [facility] Last Admin: 12/27/19 11:17 Dose: 150 mg Tamsulosin HCl (Flomax) 0.4 mg PO DAILY [facility] Last Admin: 12/27/19 11:18 Dose: 0.4 mg Thiamine HCl (Vitamin B-1) 100 mg PO DAILY [facility] Last Admin: 12/27/19 11:18 Dose: 100 mg Discontinued Medications Atenolol (Tenormin) 100 mg PO DAILY [facility] Last Admin: 12/24/19 18:27 Dose: Not Given Diatrizoate Meglum/Diatrizoate Sod (Gastrografin 37%) 30 ml PO . DIRECTED ONE Stop: 12/24/19 16:28 Last Admin: 12/24/19 17:40 Dose: 30 ml Enalapril Maleate (Vasotec) 10 mg PO DAILY [facility] Last Admin: 12/24/19 18:27 Dose: Not Given Sodium Chloride (Normal Saline) 500 mls @ 500 mls/hr IV ASDIRECTED [facility] Last Admin: 12/24/19 12:57 Dose: 500 mls/hr Sodium Chloride (Normal Saline) 500 mls @ 500 mls/hr IV ASDIRECTED [facility] Last Admin: 12/24/19 15:10 Dose: 500 mls/hr Iopamidol (Isovue-370 (76%)) 85 ml IV . DIRECTED ONE Stop: 12/24/19 16:03 Last Admin: 12/24/19 17:40 Dose: 85 ml Pneumococcal Polyvalent Vaccine (Pneumovax 23) 0.5 ml IM .ONCE ONE Stop: 12/24/19 18:43 Potassium Chloride (Klor-Con M20) 40 meq PO ONETIME ONE Stop: 12/24/19 14:55 Last Admin: 12/24/19 14:59 Dose: 40 meq Potassium Chloride (Klor-Con M20) 20 meq PO BID [facility] Last Admin: 12/25/19 08:49 Dose: 20 meq Tamsulosin HCl (Flomax) 0.4 mg PO BEDTIME [facility] Last Admin: 12/26/19 21:37 Dose: 0.4 mg - Exam General: Reports: Alert, Oriented, Cooperative, No Acute Distress HEENT: Reports: Scleral Icterus Lungs: Reports: Clear to Auscultation, Normal Respiratory Effort, Decreased Breath Sounds (bases). Denies: Crackles, Rales, Wheezing Cardiovascular: Reports: Regular Rate, Regular Rhythm GI/Abdominal Exam: Normal Bowel Sounds, Soft, Non-Tender, No Distention Extremities: No Pedal Edema Skin: Reports: Warm, Dry, Other (3 cm hard erythematous nonhealing chronic lesion on left tibia. jaundiced.)
== END 2019-12-27 15:45 | disposition home health service (06) | DRG 641 ==
LOC: FB.ED 12:05 → FB.MS 16:53
PROVIDERS: ADMIT Family Medicine; ATTEND Family Medicine
DX: E87.1 Hypo-osmolality and hyponatremia (principal); F10.188 Alcohol abuse with other alcohol-induced disorder; K70.31 Alcoholic cirrhosis of liver with ascites; E86.0 Dehydration; Z51.5 Encounter for palliative care; E87.6 Hypokalemia; R62.7 Adult failure to thrive; F10.10 Alcohol abuse, uncomplicated; K52.9 Noninfective gastroenteritis and colitis, unspecified; N40.0 Benign prostatic hyperplasia without lower urinary tract symptoms; Y90.9 Presence of alcohol in blood, level not specified; H54.7 Unspecified visual loss; I10 Essential (primary) hypertension; M10.9 Gout, unspecified; Z79.899 Other long term (current) drug therapy; R17 Unspecified jaundice
CPT/HCPCS: 36415; 80048; 80074; 82150; 82565; 83690; 83880; 84132; 85025; 86140; 96360; 96361; 99284; 99285; A9270; J7030 ×2; Q9963; 74177; 80053; 82140; 85610; J1650; Q9967

== ENCOUNTER 2020-03-06 11:15 | Inpatient (IN) | payer MEDICARE ==
--- NOTE | 2020-03-06 11:52 | EDM.PDOC ---
ED HPI GENERAL MEDICAL PROBLEM - General Stated Complaint: FALL Time Seen by Provider: 03/06/20 11:20 Source of Information: Reports: Patient, EMS, EMS Notes Reviewed, RN Notes Reviewed History Limitations: Reports: No Limitations - History of Present Illness INITIAL COMMENTS - FREE TEXT/NARRATIVE: pt states he fell in his home about 2 days ago and was not able to get up legs are weak and not well controlled ) [employer]als [employer] wheels found him not opening door so called EMS denies any pain , no hip pain, no chest pain no leg swelling was incontinent no headache but seems confused Onset: Today Onset Date: 03/06/20 - Related Data Allergies Allergy/AdvReac Type Severity Reaction Status Date / Time No Known Allergies Allergy Verified 12/24/19 12:13 Home Meds: Home Meds Furosemide 40 mg PO DAILY 12/24/19 [History] Lactulose 15 ml PO BID 12/24/19 [History] Spironolactone 100 mg PO DAILY 12/24/19 [History] Tamsulosin HCl 0.4 cap PO DAILY #0 12/27/19 [Rx] Potassium Chloride [Klor-Con 8] 16 meq PO DAILY 03/06/20 [History] Past Medical History - Past Health History Medical/Surgical History: Denies Medical/Surgical History HEENT History: Reports: Impaired Vision Cardiovascular History: Reports: Hypertension Gastrointestinal History: Reports: Cirrhosis Musculoskeletal History: Reports: Gout Other Musculoskeletal History: LEFT LEG FRACTURE Neurological History: Reports: Head Trauma - Infectious Disease History Infectious Disease History: Reports: Chicken Pox Social & Family History - Family History Family Medical History: Unobtainable - Caffeine Use Caffeine Use: Reports: None ED ROS GENERAL - Review of Systems Review Of Systems: See Below Constitutional: Reports: Malaise, Weakness, Fatigue. Denies: Fever, Chills HEENT: Reports: No Symptoms Respiratory: Reports: No Symptoms. Denies: Cough, Sputum Cardiovascular: Reports: No Symptoms. Denies: Chest Pain, Dyspnea on Exertion, Edema Endocrine: Reports: Fatigue GI/Abdominal: Reports: No Symptoms. Denies: Diarrhea, Decreased Appetite, Nausea : Reports: Incontinence Musculoskeletal: Reports: No Symptoms, Other (weakness in legs) Skin: Reports: Bruising, Other (abrasion onthe elbow and backof left hand) Neurological: Reports: Confusion, Dizziness, Difficulty Walking, Weakness, Gait Disturbance. Denies: Trouble Speaking, Change in Speech Psychiatric: Reports: No Symptoms Hematologic/Lymphatic: Reports: Easy Bruising ED EXAM, GENERAL - Physical Exam Exam: See Below Exam Limited By: No Limitations General Appearance: Alert, No Apparent Distress, Lethargic Eye Exam: Bilateral Eye: EOMI Ears: Normal External Exam Nose: Normal Inspection Throat/Mouth: Normal Inspection, Other (dry mucous membranes) Head: Atraumatic. No: Facial Swelling, Facial Tenderness Neck: Supple, Non-Tender Respiratory/Chest: Lungs Clear, Normal Breath Sounds Cardiovascular: Regular Rate, Rhythm, No Edema, No JVD Peripheral Pulses: 2+: Dorsalis Pedis (L), Dorsalis Pedis (R) GI/Abdominal: Abnormal Bowel Sounds (hypoactive BS) Back Exam: Normal Inspection. No: Paraspinal Tenderness, Vertebral Tenderness Extremities: Limited Range of Motion (but able to move in bed freely, not able to stand up) Neurological: CN II-XII Intact, Slow to Respond, Abnormal Gait. No: Sensory/ Motor Deficit Psychiatric: Normal Affect Skin Exam: Decubitus (in gluteal region has redness , no skin break), Erythema, Other (multiple bruses on both arms and hands , has skin break on the left and right hand) Lymphatic: No Adenopathy EKG INTERPRETATION EKG Date: 03/06/20 Rhythm: NSR Dunbar: Normal P-Wave: Present QRS: Normal Course - Vital Signs Last Recorded V/S: Last Vital Signs Temp 36.7 C 03/07/20 03:00 Pulse 83 03/07/20 03:00 Resp 20 03/07/20 03:00 BP 112/69 03/07/20 03:00 Pulse Ox 96 03/07/20 03:00 - Orders/Labs/Meds Orders: Active Orders 24 hr Category Date Time Status CK, TOTAL+ISOENZYMES, SERUM Stat Lab 03/06/20 12:35 Received MYOGLOBIN, SERUM Stat Lab 03/06/20 12:35 Received Sodium Chloride 0.9% [Normal Saline] 1,000 ml Med 03/06/20 11:45 Active IV ASDIRECTED Medication Orders Acetaminophen (Tylenol) 650 mg PO Q4H PRN PRN Reason: analgesia/fever Sodium Chloride (Normal Saline) 1,000 mls @ 150 mls/hr IV ASDIRECTED JANELL Last Admin: 03/07/20 02:19 Dose: 150 mls/hr Infusion: 03/07/20 02:11 Dose: 150 mls/hr Admin: 03/06/20 19:30 Dose: 150 mls/hr Infusion: 03/06/20 18:43 Dose: 150 mls/hr Admin: 03/06/20 12:02 Dose: 150 mls/hr Piperacillin Sod/Tazobactam (Sod 3.375 gm/ Sodium Chloride) 50 mls @ 100 mls/ hr IV Q8H [facility] Last Admin: 03/07/20 08:27 Dose: 100 mls/hr Admin: 03/06/20 23:42 Dose: 100 mls/hr Lactulose (Chronulac) 10 gm PO BID JANELL Magnesium Hydroxide (Milk Of Magnesia) 30 ml PO BID PRN PRN Reason: Constipation Potassium Chloride (Klor-Con 8) 16 meq PO DAILY [facility] Spironolactone (Aldactone) 100 mg PO DAILY [facility] Tamsulosin HCl (Flomax) 0.4 mg PO DAILY [facility] Last Admin: 03/07/20 08:28 Dose: 0.4 mg Labs: Laboratory Tests 03/06/20 03/06/20 03/06/20 Range/Units 12:00 12:00 12:00 WBC 7.6 (4.5-12.0) X10-3/uL RBC 3.89 L (4.30-5.75) x10(6)uL Hgb 12.8 L (13.5-17.8) g/dL Hct 37.5 (30.0-51.3) % MCV 96.4 H (80-96) fL MCH 32.9 (27.7-33.6) pg MCHC 34.1 (32.2-35.4) g/dL RDW 13.2 (11.5-15.5) % Plt Count 236 (125-369) X10(3)uL MPV 7.3 L (7.4-10.4) fL Neut % (Auto) 58.6 (46-82) % Lymph % (Auto) 24.0 (13-37) % Sutter % (Auto) 11.4 (4-12) % Eos % (Auto) 4 (1.0-5.0) % Baso % (Auto) 2 (0-2) % Neut # (Auto) 4.4 (1.6-8.3) # Lymph # (Auto) 1.8 (0.6-5.0) # Sutter # (Auto) 0.9 (0.0-1.3) # Eos # (Auto) 0.3 (0.0-0.8) # Baso # (Auto) 0.2 (0.0-0.2) # Sodium 133 L (135-145) mmol/L Potassium 3.5 (3.5-5.3) mmol/L Chloride 98 L (100-110) mmol/L Carbon Dioxide 26 (21-32) mmol/L BUN 9 (7-18) mg/dL Creatinine 1.0 (0.70-1.30) mg/dL Est Cr Clr Drug Dosing TNP Estimated GFR (MDRD) > 60 (>60) BUN/Creatinine Ratio 9.0 (9-20) Glucose 93 (80-116) mg/dL Calcium 8.5 L (8.6-10.2) mg/dL C-Reactive Protein (0.5-0.9) mg/dL NT-Pro-B Natriuret Pep (<=450) pg/mL Ethyl Alcohol < 0.03 (<0.03) % 03/06/20 03/06/20 Range/Units 12:00 12:35 WBC (4.5-12.0) X10-3/uL RBC (4.30-5.75) x10(6)uL Hgb (13.5-17.8) g/dL Hct (30.0-51.3) % MCV (80-96) fL MCH (27.7-33.6) pg MCHC (32.2-35.4) g/dL RDW (11.5-15.5) % Plt Count (125-369) X10(3)uL MPV (7.4-10.4) fL Neut % (Auto) (46-82) % Lymph % (Auto) (13-37) % Sutter % (Auto) (4-12) % Eos % (Auto) (1.0-5.0) % Baso % (Auto) (0-2) % Neut # (Auto) (1.6-8.3) # Lymph # (Auto) (0.6-5.0) # Sutter # (Auto) (0.0-1.3) # Eos # (Auto) (0.0-0.8) # Baso # (Auto) (0.0-0.2) # Sodium (135-145) mmol/L Potassium (3.5-5.3) mmol/L Chloride (100-110) mmol/L Carbon Dioxide (21-32) mmol/L BUN (7-18) mg/dL Creatinine (0.70-1.30) mg/dL Est Cr Clr Drug Dosing Estimated GFR (MDRD) (>60) BUN/Creatinine Ratio (9-20) Glucose (80-116) mg/dL Calcium (8.6-10.2) mg/dL C-Reactive Protein 1.2 H (0.5-0.9) mg/dL NT-Pro-B Natriuret Pep 141 (<=450) pg/mL Ethyl Alcohol (<0.03) % Meds: Medications Generic Name Dose Route Start Last Admin Trade Name Freq PRN Reason Stop Dose Admin Acetaminophen 650 mg 03/06/20 15:43 Tylenol PO Q4H PRN analgesia/fever Sodium Chloride 1,000 mls @ 150 mls/hr 03/06/20 11:45 03/07/20 02:19 Normal Saline IV 150 mls/hr ASDIRECTED JANELL Administration Piperacillin Sod/Tazobactam 50 mls @ 100 mls/hr 03/07/20 00:00 03/07/20 08:27 Sod 3.375 gm/ Sodium Chloride IV 100 mls/hr Q8H JANELL Administration Lactulose 10 gm 03/07/20 09:00 Chronulac PO BID JANELL Magnesium Hydroxide 30 ml 03/06/20 15:43 Milk Of Magnesia PO BID PRN Constipation Potassium Chloride 16 meq 03/07/20 09:00 Klor-Con 8 PO DAILY JANELL Spironolactone 100 mg 03/07/20 09:00 Aldactone PO DAILY JANELL Tamsulosin HCl 0.4 mg 03/07/20 09:00 03/07/20 08:28 Flomax PO 0.4 mg DAILY JANELL Administration Discontinued Medications Generic Name Dose Route Start Last Admin Trade Name Freq PRN Reason Stop Dose Admin Diphtheria/Tetanus/Acell Pertussis 0.5 ml 03/06/20 12:44 03/06/20 12:52 Adacel IM 03/06/20 12:45 0.5 ml .ONCE ONE Administration Docusate Sodium 200 mg 03/06/20 15:43 Colace PO DAILY PRN Constipation Piperacillin Sod/Tazobactam 50 mls @ 100 mls/hr 03/06/20 12:44 03/06/20 12:53 Sod 3.375 gm/ Sodium Chloride IV 03/06/20 13:13 100 mls/hr NOW STA Administration Lactulose Confirm 03/06/20 20:02 03/06/20 20:12 Chronulac Administered 03/06/20 20:03 Not Given Dose 10 gm .ROUTE .STK-MED ONE Non-Formulary Medication 15 ml 03/06/20 21:00 03/06/20 20:13 Lactulose [Lactulose] PO 15 ml BID JANELL Administration Prednisone 40 mg 03/06/20 13:29 03/06/20 14:47 Prednisone PO 03/06/20 13:30 Not Given NOW STA Tamsulosin HCl 0.4 mg 03/06/20 13:29 03/06/20 14:47 Flomax PO 03/06/20 13:30 Not Given ONETIME ONE - Re-Assessments/Exams Free Text/Narrative Re-Assessment/Exam: 03/06/20 01:56 pt has iVF started , labs done , immediately requested for food to it did give him apple juice sent for ct head on return seemed more alert . was given food : did eat fast and vomited gradually seemed better was not able to urinate ct head reviewed: negative Labs reviewed : no significant abnormality call made to admit pt is not thriving well at home : lives alone and not able to take care of self not mobile ( uses walker and cane when he can Plan is to try and admit to SNF Departure - Departure Time of Disposition: 15:15 Disposition: Admitted As Inpatient 65 Clinical Impression: Rhabdomyolysis - Discharge Information Sepsis Event Note - Focused Exam Date Exam was Performed: 03/07/20 Time Exam was Performed: 08:49 - My Orders Last 24 Hours: My Active Orders 03/06/20 11:45 Sodium Chloride 0.9% [Normal Saline] 1,000 ml IV ASDIRECTED 03/06/20 12:35 CK, TOTAL+ISOENZYMES, SERUM Stat MYOGLOBIN, SERUM Stat - Assessment/Plan Last 24 Hours: My Active Orders 03/06/20 11:45 Sodium Chloride 0.9% [Normal Saline] 1,000 ml IV ASDIRECTED 03/06/20 12:35 CK, TOTAL+ISOENZYMES, SERUM Stat MYOGLOBIN, SERUM Stat
[2020-03-06] MEDS: Sodium Chloride 0.9% 1,000 ML IV SCH ×2 (12:02→19:30)
[2020-03-06] MEDS ORDERED: Diphtheria,Pertussis(Acell),Tetanus Vaccine 0.5 ML SDV IM ONE (12:44)
[2020-03-06] MEDS ORDERED: Piperacillin/Tazobactam 3.375 GM in Sodium Chloride 0.9% 50 ML IV STA (12:44)
[2020-03-06] MEDS ORDERED: Tamsulosin 0.4 MG Cap.ER PO ONE (13:29)
[2020-03-06] MEDS ORDERED: predniSONE 10 MG Tab PO STA (13:29)
--- NOTE | 2020-03-06 13:50 | CT ---
INDICATION: Fall. CT HEAD WITHOUT CONTRAST: Spiral 3.75 mm axial sections were obtained through the brain without contrast 03/06/20 and compared with 12/06/18. Total exam DLP was 1322.30 mGy-cm. The paranasal sinuses, and the mastoid air cells were well aerated. No cranial abnormality was identified. Calcifications are noted in the internal carotid arteries as previously. Areas of encephalomalacia are again noted in the left temporal and frontal areas. Cortical atrophy is also suggested in the right temporal area and in general, to a lesser degree. No definite acute intracranial abnormality was identified - no bleeding site or hematoma was seen. The orbits appear to be intact. Ventricles are prominent as previously and possibly to a slightly greater extent than on the previous study compatible with slightly progressive central atrophy. IMPRESSION: 1. No acute intracranial abnormality. 2. Cerebrovascular disease with relatively minimal white matter changes compatible with microvascular disease of mild degree. 3. Areas of encephalomalacia, which may be on the basis of previous injury such as thrombotic CVA's or possibly post traumatic - correlate clinically. 4. Cortical atrophy and central atrophy noted. Progressive generalized atrophy is suggested. Report was called to Cecilia Perales MD at 13:11 hours. [facility]
[2020-03-06] MEDS ORDERED: Acetaminophen 325 MG Tab PO PRN (15:43)
[2020-03-06] MEDS ORDERED: Docusate Sodium 100 MG Cap PO PRN (15:43)
[2020-03-06] MEDS ORDERED: Magnesium Hydroxide 400 MG/5 ML Susp 30 ML Cup PO PRN (15:43)
[2020-03-06] MEDS ORDERED: Lactulose Soln 10 GM/15 ML 15 ML UD Cup ONE (20:02)
[2020-03-06] MEDS ORDERED: LACTULOSE PO SCH (21:00)
[2020-03-06] MEDS: Piperacillin/Tazobactam 3.375 GM in Sodium Chloride 0.9% 50 ML IV SCH (23:42)
[2020-03-07] MEDS: Sodium Chloride 0.9% 1,000 ML IV SCH ×4 (02:19→22:49)
[2020-03-07] MEDS: Piperacillin/Tazobactam 3.375 GM in Sodium Chloride 0.9% 50 ML IV SCH ×2 (08:27→16:21)
[2020-03-07] MEDS: Tamsulosin 0.4 MG Cap.ER PO SCH (08:28)
[2020-03-07] MEDS ORDERED: Potassium Chloride 8 MEQ Tab.ER PO SCH (09:00)
[2020-03-07] MEDS: Lactulose Soln 10 GM/15 ML 15 ML UD Cup PO SCH ×2 (09:17→21:13)
[2020-03-07] MEDS: Spironolactone 50 MG Tab PO SCH (09:17)
[2020-03-07] MEDS: Potassium Chloride 20 MEQ Tab.ER PO SCH (11:24)
[2020-03-07] MEDS: Betamethasone Dipropionate/Clotrimazole 0.05-1% Crm 15 GM Tube TOP SCH ×2 (11:24→21:14)
--- NOTE | 2020-03-07 12:20 | PN ---
DATE SEEN: 03/07/2020 SUBJECTIVE: Angel Ortiz is a 74-year-old male, admitted under uncomfortable circumstances. He had a fall at home, laid unattended, unable to get up from the floor in his bedroom, incontinent of stool and urine. Feeling better. Appetite is a bit returning. General aches and pains. OBJECTIVE: VITAL SIGNS: 36.7, 83, 112/69, 20 are the respirations, 96. GENERAL: Well awake, more alert and appropriate. A bit disgruntled. Refused lab tests today. NECK: Benign. Thyroid small. CHEST: Clear in all lung beard. HEART: No ectopy or murmur. ABDOMEN: Benign. ASSESSMENT: Complicated issues of his body. PLAN: We will continue present therapy. Medications on board. Diet as appropriate. PT/OT involved. Living situation to be reconsidered. /[id number] NASEEM/JOSE
--- NOTE | 2020-03-07 13:15 | HP ---
ADMISSION DATE: 03/06/2020 REASON FOR VISIT: Complicated health issues. HISTORY OF PRESENT ILLNESS: Angel Ortiz is a 74-year-old male, lives at [facility] in [place], [place], was brought by EMS. Apparently, he had been attempting, approximately 2 days prior, after finishing a phone call to sit on his bed. He did not make it to the bed and laid on the floor. Duration was at least 2+ days. [employer] had brought his food the day before, upon returning the next day, i.e., today, food was still at the door. They were able to access the living situation, was found on the floor, incontinent of urine and stool, and required transfer and care by EMS. Denies any particular complaints or concerns. Multiple bruises were present. He seemed confused but had no apparent headache. Diagnostic studies include a CT of the head which revealed encephalomalacia, cortical atrophy, but no acute process. Laboratory studies to be reviewed below. PAST HEALTH: Significant for some previous leg surgery, fractures uncertain of the circumstances. Chronic illnesses include hypertension, hyperuricemia, alcoholic hepatitis. MEDICATIONS: Upon admission included: 1. Furosemide 40 mg 1 p.o. daily. 2. Lactulose 15 mL b.i.d. 3. Potassium 8 mEq 2 daily. 4. Spironolactone 50 mg 2 daily, 100 mg. 5. Tamsulosin 0.4 mg. SOCIAL HISTORY: Single, never . College Admissions Counselor by occupation, retired. No children. Passive smoker. Some chewing tobacco. Moderate alcohol intake. No illicit drug use. REVIEW OF SYSTEMS: Upon review, voices little or no concerns other than weakness, disability, some generalized joint pain. Otherwise unremarkable. PHYSICAL EXAMINATION: VITAL SIGNS: 73 kg, 36.7 degrees Fahrenheit, 90, 110/70, 18, and 100. GENERAL: Elderly gentleman, appears older than stated age, disheveled, heavily bearded. Speech is fluent. HEENT: Funduscopic, benign. Bright TMs. Decreased hearing. Clear nasal discharge. Mouth and oropharynx clear. NECK: Benign. Thyroid small. CHEST: Decreased breath sounds. Coarse rhonchi. HEART: Distant heart sounds. Soft murmur. ABDOMEN: Benign. No hepatosplenomegaly. GENITOURINARY: Complicated groin eruption. GENITALIA: Circumcised male. Testes descended. EXTREMITIES: Well perfused. Multiple bruises. LABORATORY STUDIES: Hemoglobin 12.8, white count 7600, normal indices. Sodium 133, chloride 98, GFR greater than 60, CRP 1.2. ProBNP 141. Alcohol 0.03. ASSESSMENT: Complicated health situation, . PLAN: We will admit to hospital. Close observation. Hydrate and intervention, proceed accordingly. /[id number] NASEEM/JOSE
[2020-03-07] MEDS: Phenazopyridine 95 MG Tab PO SCH ×2 (17:58→18:22)
[2020-03-08] MEDS: Piperacillin/Tazobactam 3.375 GM in Sodium Chloride 0.9% 50 ML IV SCH ×4 (00:20→23:54)
[2020-03-08] MEDS: Sodium Chloride 0.9% 1,000 ML IV SCH ×2 (05:20→13:07)
[2020-03-08] MEDS: Phenazopyridine 95 MG Tab PO SCH ×3 (08:30→19:30)
[2020-03-08] MEDS: Lactulose Soln 10 GM/15 ML 15 ML UD Cup PO SCH ×2 (08:30→20:43)
[2020-03-08] MEDS: Potassium Chloride 20 MEQ Tab.ER PO SCH (08:30)
[2020-03-08] MEDS: Spironolactone 50 MG Tab PO SCH (08:30)
[2020-03-08] MEDS: Tamsulosin 0.4 MG Cap.ER PO SCH (08:30)
[2020-03-08] MEDS: Betamethasone Dipropionate/Clotrimazole 0.05-1% Crm 15 GM Tube TOP SCH ×2 (08:32→20:43)
--- NOTE | 2020-03-08 12:58 | PN ---
DATE SEEN: 03/08/2020 SUBJECTIVE: Angel Ortiz is a 74-year-old male seen today for review. He was found unattended in his home on the floor in the living room, incontinent of urine and stool for about 2 days. In for review. Voiding with reasonable success, not drinking well. Pyridium was added to assist with voiding capabilities. Residuals have been high. He is on Flomax for urinary improvement. No outstanding laboratory issues. White count 7600, hemoglobin 12.8, normal indices. Electrolytes were satisfactory. GFR greater than 60. Urine 1st was catheterized and unremarkable, 2nd orange and cultured. Otherwise, doing well. IV fluids have been discontinued. OBJECTIVE: VITAL SIGNS: 36.4, 96, 109/73, 18 is the respirations, 97%. GENERAL: Appears comfortable. A bit confused. NECK: Benign. Thyroid small. CHEST: Clear in all lung beard. HEART: No ectopy or murmur. ABDOMEN: Benign. ASSESSMENT: Complicated general inabilities. PLAN: Living alone situation concern, swing bed an opportunity. /[id number] /JOSE
[2020-03-08] MEDS: Enoxaparin 30 MG/0.3 ML Syringe SUBCUT SCH ×2 (13:10→20:44)
[2020-03-09] MEDS: Piperacillin/Tazobactam 3.375 GM in Sodium Chloride 0.9% 50 ML IV SCH ×2 (08:49→16:47)
[2020-03-09] MEDS: Lactulose Soln 10 GM/15 ML 15 ML UD Cup PO SCH ×2 (09:49→20:33)
[2020-03-09] MEDS: Potassium Chloride 20 MEQ Tab.ER PO SCH (09:49)
[2020-03-09] MEDS: Spironolactone 50 MG Tab PO SCH (09:49)
[2020-03-09] MEDS: Betamethasone Dipropionate/Clotrimazole 0.05-1% Crm 15 GM Tube TOP SCH ×2 (09:50→20:33)
[2020-03-09] MEDS: Phenazopyridine 95 MG Tab PO SCH ×2 (09:50→14:53)
[2020-03-09] MEDS: Enoxaparin 30 MG/0.3 ML Syringe SUBCUT SCH ×2 (09:50→20:34)
[2020-03-09] MEDS: Tamsulosin 0.4 MG Cap.ER PO SCH (09:50)
--- NOTE | 2020-03-09 11:28 | PN ---
DATE SEEN: 03/09/2020 SUBJECTIVE: Jaciel Ortiz is a 74-year-old male, admitted for vulnerable adult. Had laid on the floor of his bedroom after a fall, unable to obtain an upright posture for at least 2 days duration. There were no complicating health issues. CAT scan of his head revealed atrophy only. Laboratory studies were unremarkable upon admission. Hemoglobin 12.8, white count 7600. Electrolytes satisfactory. Urinalysis was markedly abnormal. No growth after 2 days, though markedly abnormal urine, catheterized specimen. Voiding now on his own. OBJECTIVE: VITAL SIGNS: 36.8, 93/62, 18, 92% on room air. GENERAL: Appears comfortable. Hacky cough. NECK: Benign. No JVD. CHEST: Clear in all lung beard. HEART: No ectopy or murmur. ABDOMEN: Benign. PLAN: Presently on antibiotic therapy for pneumonia. X-ray will be performed, proceed accordingly. /[id number] NASEEM/JOSE
[2020-03-10] MEDS: Piperacillin/Tazobactam 3.375 GM in Sodium Chloride 0.9% 50 ML IV SCH ×4 (01:23→23:59)
[2020-03-10] MEDS: Sodium Chloride 0.9% 10 ML Syringe FLUSH PRN ×2 (01:47→17:05)
[2020-03-10] MEDS: Tamsulosin 0.4 MG Cap.ER PO SCH (09:00)
[2020-03-10] MEDS: Spironolactone 50 MG Tab PO SCH ×2 (09:02→09:11)
[2020-03-10] MEDS: Potassium Chloride 20 MEQ Tab.ER PO SCH (09:02)
[2020-03-10] MEDS: Lactulose Soln 10 GM/15 ML 15 ML UD Cup PO SCH ×3 (09:03→20:34)
[2020-03-10] MEDS: Enoxaparin 30 MG/0.3 ML Syringe SUBCUT SCH ×2 (09:03→09:11)
[2020-03-10] MEDS: Betamethasone Dipropionate/Clotrimazole 0.05-1% Crm 15 GM Tube TOP SCH ×3 (09:04→20:34)
--- NOTE | 2020-03-10 09:53 | CR ---
INDICATION: Pneumonia. CHEST, 1 VIEW: An AP upright view of the chest, 03/09/20, was compared with and 12/06/18. The heart is normal in size. There is a double shadow along the right heart border, which could represent right ventricular enlargement. The aorta is tortuous with minimal calcifications suggested in the arch. There is some linear density in the mid-lung field, which may represent thickened minor fissure. There is question of a small nodular density at the left costophrenic angle overlying the anterior aspect of the 6th left rib and the posterolateral aspect of the left 8th rib. A curvilinear density along the superolateral right hemithorax gives the impression of a limited pneumothorax but could be on the basis of a skin fold. An upright PA view with expiration may be helpful for confirmation. No definite consolidating pneumonia or effusion was seen. The patient refused, at this time, to transport for a 2-view chest x-ray. IMPRESSION: 1. Cannot exclude a minimal pneumothorax on the right - 5%. 2. Pleural parenchymal changes appear to be decreasing on the right suggesting resolving pneumonia and pleuritis. 3. Cannot exclude a small nodular density at the left costophrenic angle. 4. ASD aorta. Report was called to Dr. Pro this AM. [facility]
[2020-03-10] MEDS ORDERED: Enoxaparin 30 MG/0.3 ML Syringe SUBCUT SCH (21:00)
--- NOTE | 2020-03-11 07:20 | PN ---
DATE SEEN: 03/10/2020 SUBJECTIVE: Angel Ortiz is a 74-year-old male seen today for review, lives at [facility]. He had a 2-day stay complicated on his floor, unable to assist and get up. Convinced he can return to [facility]. There have been no complicating issues found. Laboratory data was unremarkable. CT of the head revealed no pathology. Continues to do reasonably well. He has been inactive and not walking to speak of. OBJECTIVE: VITAL SIGNS: 36.4, 90, 111/77, 19, and 96. GENERAL: Awake, appropriate, comfortable. Speech was fluent. Orientated. NECK: Benign. Thyroid small. CHEST: Clear in all lung beard. HEART: No ectopy or murmur. ABDOMEN: Benign. ASSESSMENT: Physical decline. PLAN: Discharge plans in order, does have a First [facility], senior care assessment to consider. /[id number] NASEEM/JOSE WYMAN
[2020-03-11] MEDS: Piperacillin/Tazobactam 3.375 GM in Sodium Chloride 0.9% 50 ML IV SCH (08:23)
[2020-03-11] MEDS: Sodium Chloride 0.9% 10 ML Syringe FLUSH PRN ×2 (08:24)
[2020-03-11] MEDS: Potassium Chloride 20 MEQ Tab.ER PO SCH ×2 (08:28→10:50)
[2020-03-11] MEDS: Spironolactone 50 MG Tab PO SCH ×2 (08:29→10:50)
[2020-03-11] MEDS: Lactulose Soln 10 GM/15 ML 15 ML UD Cup PO SCH (08:29)
[2020-03-11] MEDS: Tamsulosin 0.4 MG Cap.ER PO SCH (08:29)
[2020-03-11] MEDS: Betamethasone Dipropionate/Clotrimazole 0.05-1% Crm 15 GM Tube TOP SCH (08:30)
[2020-03-11] MEDS ORDERED: Levofloxacin 500 MG Tab PO SCH (09:00)
[2020-03-11 10:10] LABS: CK-BB 0 % (0); CK-MB 0 % (0-3); CK-MM 100 % (97-100); MACRO TYPE 1 0 % (Not Observed); MACRO TYPE 2 0 % (Not Observed)
--- NOTE | 2020-03-11 16:19 | DISCH ---
DISCHARGE DATE: 03/11/2020 DISCHARGE DIAGNOSES: 1. Right lower lobe pneumonia. 2. ASD. 3. Vulnerable adult male. HISTORY OF PRESENT ILLNESS: Angel Ortiz is a 74-year-old male, lives at [facility] in [place], was brought by EMS. He had been recumbent on his floor for about 2 days' duration. [facility] staff noticed the absence of intake of food. Ambulance was summoned and brought to the hospital. He presented with weakness, at risk for fall concerns, and a right-sided pneumonia. Had some soft tissue injuries and abrasions. Please see history and physical upon admission. LABORATORY STUDIES: CBC, white count of 7600, hemoglobin 12.8. Electrolytes satisfactory. Sodium 133, chloride 98, CRP 1.2. ProBNP 141. Urinalysis markedly abnormal, but no growth of consequence. HOSPITAL COURSE: Hospital course was uncomplicated. He was given intravenous antibiotics for pneumonia, responded well. Symptoms improved. Cough abated. Fever abated. Issues implications, PT and OT involved. He was reluctant to participate. Home Health will be part of his followup care. PHYSICAL EXAMINATION: VITAL SIGNS: At time of discharge, 36.3, 110/72, 16, 97, pulse 88. GENERAL: Heavily bearded, disheveled. HEENT: Unremarkable. NECK: Benign. Thyroid small. No JVD. CHEST: Clear in all lung beard. No adventitious sounds. HEART: No ectopy or murmur. ABDOMEN: Benign. ASSESSMENT: Resolving pneumonia, at risk vulnerable adult. PLAN: Discharge home, concerns, implications. Home Health will be involved. [employer] to follow clinically. Will have followup appointment with family doctor in 2 weeks' time. SURGICAL PROCEDURES: None. CONSULTATION: None. /[id number] NASEEM/JOSE
== END 2020-03-11 11:50 | disposition home health service (06) | DRG 194 ==
LOC: FB.ED 11:15 → FB.MS 15:43
PROVIDERS: ADMIT Family Medicine; ATTEND Family Medicine
DX: J18.9 Pneumonia, unspecified organism (principal); Z91.81 History of falling; H54.7 Unspecified visual loss; Q21.1 Atrial septal defect; K74.60 Unspecified cirrhosis of liver; M62.82 Rhabdomyolysis; I10 Essential (primary) hypertension; M10.9 Gout, unspecified; T14.8XXA Other injury of unspecified body region, initial encounter; Z79.899 Other long term (current) drug therapy
CPT/HCPCS: 36415; 70450; 71045; 80048; 80307; 81001; 82550; 82552; 83874; 83880; 85025; 86140; 87086; 90471; 90715; 93010; 96361; 96365; 97161-GP; 99284; 99285-25; A9270-GY; J1650; J2543; J7030; J7050

== ENCOUNTER 2020-05-19 16:44 | Inpatient (IN) | payer MEDICARE, OTHER ==
[2020-05-19] MEDS: Sodium Chloride 0.9% 1,000 ML IV SCH (16:45)
[2020-05-19] MEDS: Iopamidol 755 Mg/ML 100 ML Bottle IV ONE ×2 (18:42→19:29)
[2020-05-19] MEDS ORDERED: Sodium Chloride 0.9% 1,000 ML IV ONE (18:43)
[2020-05-19] MEDS: Sodium Chloride 0.9% 10 ML Syringe FLUSH PRN (19:02)
[2020-05-19] MEDS ORDERED: Iopamidol 755 Mg/ML 100 ML Bottle IV ONE (20:02)
[2020-05-19] MEDS ORDERED: Ondansetron 4 MG/2 ML SDV IV PRN (20:51)
[2020-05-19] MEDS ORDERED: Acetaminophen 325 MG Tab PO PRN ×2 (20:51→20:58)
[2020-05-19] MEDS ORDERED: LORazepam 2 MG/ML SDV IV PRN (20:51)
--- NOTE | 2020-05-19 21:10 | EDM.PDOC ---
ED HPI GENERAL MEDICAL PROBLEM - General Chief Complaint: General Stated Complaint: CANT SWALLOW Time Seen by Provider: 05/19/20 16:50 Source of Information: Reports: Patient History Limitations: Reports: No Limitations - History of Present Illness INITIAL COMMENTS - FREE TEXT/NARRATIVE: Patient presented to the ED because of generalized body weakness for 1 month. He fell -he doesn't know when and sustained an abrasion ion on the left elbow. According to Mr Ortiz he have a hard time swallowing especially solid for 1 month. Denies having abdominal pain,N/V/D or constipation. He also c/o having a non-productive cough x 1 week without any fever or chills. He also has a history of alcoholism but he said he has been sober for 6 months now. - Related Data Allergies Allergy/AdvReac Type Severity Reaction Status Date / Time No Known Allergies Allergy Verified 12/24/19 12:13 Home Meds: Home Meds Furosemide 40 mg PO DAILY 12/24/19 [History] Lactulose 15 ml PO BID 12/24/19 [History] Tamsulosin HCl 0.4 cap PO DAILY #0 12/27/19 [Rx] Acetaminophen [Tylenol] 650 mg PO Q4H PRN tablet 03/11/20 [Rx] Betamethasone/Clotrimazole [Lotrisone] 0 gm TOP BID tube 03/11/20 [Rx] Past Medical History - Past Health History Medical/Surgical History: Denies Medical/Surgical History HEENT History: Reports: Impaired Vision Cardiovascular History: Reports: Hypertension Respiratory History: Reports: Other (See Below) Other Respiratory History: has hx of tobaco abuse. previous chart indicates that he had quit smoking 1960 but chewed tobacco after that. Gastrointestinal History: Reports: Cirrhosis Genitourinary History: Reports: Other (See Below) Other Genitourinary History: prostate problem- on flomax. Musculoskeletal History: Reports: Gout Other Musculoskeletal History: LEFT LEG FRACTURE Neurological History: Reports: Head Trauma Psychiatric History: Reports: Other (See Below) Other Psychiatric History: ETOH and tobaco abuse - Infectious Disease History Infectious Disease History: Reports: Chicken Pox Social & Family History - Family History Family Medical History: Unobtainable - Caffeine Use Caffeine Use: Reports: None - Recreational Drug Use Recreational Drug Use: No ED ROS GENERAL - Review of Systems Review Of Systems: See Below Constitutional: Reports: No Symptoms HEENT: Reports: No Symptoms Respiratory: Reports: No Symptoms Cardiovascular: Reports: No Symptoms Endocrine: Reports: No Symptoms GI/Abdominal: Reports: No Symptoms : Reports: No Symptoms Musculoskeletal: Reports: No Symptoms Skin: Reports: Wound Neurological: Reports: No Symptoms Psychiatric: Reports: No Symptoms Hematologic/Lymphatic: Reports: No Symptoms ED EXAM, GENERAL - Physical Exam Exam: See Below Exam Limited By: No Limitations General Appearance: Alert, No Apparent Distress Eye Exam: Bilateral Eye: PERRL Ears: Normal External Exam, Normal Canal, Hearing Grossly Normal Nose: Normal Inspection, Normal Mucosa, No Blood Throat/Mouth: Normal Inspection, Normal Lips, Normal Teeth, Normal Gums Head: Atraumatic, Normocephalic Neck: Normal Inspection, Supple, Non-Tender, Full Range of Motion Respiratory/Chest: No Respiratory Distress, Lungs Clear, Normal Breath Sounds Cardiovascular: Normal Peripheral Pulses, Regular Rate, Rhythm, No Edema, No Gallop, No JVD, No Murmur, No Rub GI/Abdominal: Normal Bowel Sounds, Soft, Non-Tender, No Organomegaly Back Exam: Normal Inspection, Full Range of Motion Extremities: Normal Inspection, Normal Range of Motion, Non-Tender Course - Vital Signs Text/Narrative:: Labs,EKG, CXR Head CT abd/CT was discussed with patient and verbalized full understanding NS 1 L bolus Rocephin 1 gm IV Needs swallow evaluation for dysphagia Last Recorded V/S: Last Vital Signs Temp 36.4 C 05/19/20 16:50 Pulse 80 05/19/20 20:20 Resp 18 05/19/20 20:20 BP 88/55 L 05/19/20 20:20 Pulse Ox 100 05/19/20 20:20 - Orders/Labs/Meds Orders: Active Orders 24 hr Category Date Time Status Patient Status [ADT] Routine ADT 05/19/20 20:51 Active EKG Documentation Completion [RC] ASDIRECTED Care 05/19/20 16:46 Active Oxygen Therapy [RC] PRN Care 05/19/20 20:51 Active Pulse Oximetry [RC] PRN Care 05/19/20 20:56 Active Up With Assistance [RC] ASDIRECTED Care 05/19/20 20:51 Active VTE/DVT Education [RC] Per Unit Routine Care 05/19/20 20:51 Active Vital Signs [RC] Q4H Care 05/19/20 20:51 Active PT Evaluation and Treatment [CONS] Routine Cons 05/19/20 20:51 Active Abdomen Pelvis w Cont [CT] Stat Exams 05/19/20 19:56 Taken Chest 1V Frontal [CR] Stat Exams 05/19/20 19:26 Taken Head wo Cont [CT] Stat Exams 05/19/20 17:47 Taken CBC WITH AUTO DIFF [HEME] AM Lab 05/20/20 05:11 Ordered COMPREHENSIVE METABOLIC PN,CMP [CHEM] AM Lab 05/20/20 05:11 Ordered CULTURE URINE [RM] Stat Lab 05/19/20 21:01 Ordered MYOGLOBIN, SERUM Stat Lab 05/19/20 17:55 Received Acetaminophen [Tylenol] Med 05/19/20 20:58 Ordered 650 mg PO Q4H PRN Betamethasone/Clotrimazole [Lotrisone] Med 05/19/20 21:00 Ordered 0.5 gm TOP BID Docusate Sodium/Sennosides [Senna Plus] Med 05/19/20 20:51 Active 1 tab PO BID PRN LORazepam [Ativan] Med 05/19/20 20:51 Active 1 mg IV Q6H PRN Ondansetron [Zofran] Med 05/19/20 20:51 Active 4 mg IV Q4H PRN Sodium Chloride 0.9% [Normal Saline] 1,000 ml Med 05/19/20 18:15 Active IV ASDIRECTED Sodium Chloride 0.9% [Saline Flush] Med 05/19/20 16:45 Active 10 ml FLUSH ASDIRECTED PRN cefTRIAXone [Rocephin] 1 gm Med 05/19/20 21:15 Ordered Sodium Chloride 0.9% [Normal Saline] 50 ml IV Q24H Saline Lock Insert [OM.PC] Routine Oth 05/19/20 16:45 Ordered Sequential Compression Device [OM.PC] Per Unit Routine Oth 05/19/20 20:56 Ordered Resuscitation Status Routine Resus Stat 05/19/20 20:51 Ordered EKG 12 Lead [EK] Routine Ther 05/19/20 16:45 Ordered Medication Orders Acetaminophen (Tylenol) 650 mg PO Q4H PRN PRN Reason: analgesia/fever Betamethasone/Clotrimazole (Lotrisone) 0.5 gm TOP BID JANELL Sodium Chloride (Normal Saline) 1,000 mls @ 125 mls/hr IV ASDIRECTED JANELL Last Admin: 05/19/20 16:45 Dose: 125 mls/hr Documented by: LEONARDO Ceftriaxone Sodium 1 gm/ (Sodium Chloride) 50 mls @ 200 mls/hr IV Q24H JANELL Lorazepam (Ativan) 1 mg IV Q6H PRN PRN Reason: Nausea/Vomiting Ondansetron HCl (Zofran) 4 mg IV Q4H PRN PRN Reason: Nausea/Vomiting Senna/Docusate Sodium (Senna Plus) 1 tab PO BID PRN PRN Reason: Constipation Sodium Chloride (Saline Flush) 10 ml FLUSH ASDIRECTED PRN PRN Reason: Keep Vein Open Last Admin: 05/19/20 19:02 Dose: 10 ml Documented by: LEONARDO Labs: Laboratory Tests 05/19/20 05/19/20 05/19/20 Range/Units 17:02 17:02 17:02 WBC 12.1 H (4.5-12.0) X10-3/uL RBC 4.77 (4.30-5.75) x10(6)uL Hgb 15.3 (13.5-17.8) g/dL Hct 45.0 (30.0-51.3) % MCV 94.4 (80-96) fL MCH 32.1 (27.7-33.6) pg MCHC 34.0 (32.2-35.4) g/dL RDW 13.7 (11.5-15.5) % Plt Count 344 (125-369) X10(3)uL MPV 8.4 (7.4-10.4) fL Neut % (Auto) 80.3 (46-82) % Lymph % (Auto) 8.3 L (13-37) % [place]clean % (Auto) 8.8 (4-12) % Eos % (Auto) 0 L (1.0-5.0) % Baso % (Auto) 3 H (0-2) % Neut # (Auto) 9.7 H (1.6-8.3) # Lymph # (Auto) 1.0 (0.6-5.0) # Mclean # (Auto) 1.1 (0.0-1.3) # Eos # (Auto) 0.0 (0.0-0.8) # Baso # (Auto) 0.3 H (0.0-0.2) # Sodium 125 L (135-145) mmol/L Potassium 3.8 (3.5-5.3) mmol/L Chloride 89 L* D (100-110) mmol/L Carbon Dioxide 27 (21-32) mmol/L BUN 18 (7-18) mg/dL Creatinine 1.1 (0.70-1.30) mg/dL Est Cr Clr Drug Dosing TNP Estimated GFR (MDRD) > 60 (>60) BUN/Creatinine Ratio 16.4 (9-20) Glucose 135 H (80-116) mg/dL Calcium 9.3 (8.6-10.2) mg/dL Total Bilirubin 4.6 H (0.1-1.3) mg/dL AST 54 H D (5-25) IU/L ALT 26 D (12-36) U/L Alkaline Phosphatase 117 H (56-112) IU/L Creatine Kinase (60-160) IU/L Troponin I (4.0-60.3) pg/mL NT-Pro-B Natriuret Pep (<=450) pg/mL Total Protein 8.1 H (6.0-8.0) g/dL Albumin 2.8 L (3.2-4.6) g/dL Globulin 5.3 g/dL Albumin/Globulin Ratio 0.5 TSH, Ultra Sensitive 1.86 (0.36-3.74) IU/mL Urine Color (YELLOW) Urine Appearance (CLEAR) Urine pH (5.0-6.5) Ur Specific [place] (1.010-1.025) Urine Protein (NEGATIVE) mg/dL Urine Glucose (UA) (NORMAL) mg/dL Urine Ketones (NEGATIVE) mg/dL Urine Occult Blood (NEGATIVE) Urine Nitrite (NEGATIVE) Urine Bilirubin (NEGATIVE) Urine Urobilinogen (NEGATIVE) mg/dL Ur Leukocyte Esterase (NEGATIVE) Urine RBC (0-5) Urine WBC (0-5) Ur Squamous Epith Cells (NS,R,O) Urine Bacteria (NS) Urine Opiates Screen (NEGATIVE) Ur Oxycodone Screen (NEGATIVE) Ur Propoxyphene Screen (NEGATIVE) Ur Barbituates Screen (NEGATIVE) Ur Tricyclics Screen (NEGATIVE) Ur Phencyclidine Scrn (NEGATIVE) Ur Amphetamine Screen (NEGATIVE) Urine MDMA Screen (NEGATIVE) U Benzodiazepines Scrn (NEGATIVE) U Cocaine Metab Screen (NEGATIVE) U Marijuana (THC) Screen (NEGATIVE) Ethyl Alcohol < 0.03 (<0.03) % SARS Virus RNA (PCR) (NEGATIVE) 05/19/20 05/19/20 05/19/20 Range/Units 17:02 17:02 17:39 WBC (4.5-12.0) X10-3/uL RBC (4.30-5.75) x10(6)uL Hgb (13.5-17.8) g/dL Hct (30.0-51.3) % MCV (80-96) fL MCH (27.7-33.6) pg MCHC (32.2-35.4) g/dL RDW (11.5-15.5) % Plt Count (125-369) X10(3)uL MPV (7.4-10.4) fL Neut % (Auto) (46-82) % Lymph % (Auto) (13-37) % Mclean % (Auto) (4-12) % Eos % (Auto) (1.0-5.0) % Baso % (Auto) (0-2) % Neut # (Auto) (1.6-8.3) # Lymph # (Auto) (0.6-5.0) # Mclean # (Auto) (0.0-1.3) # Eos # (Auto) (0.0-0.8) # Baso # (Auto) (0.0-0.2) # Sodium (135-145) mmol/L Potassium (3.5-5.3) mmol/L Chloride (100-110) mmol/L Carbon Dioxide (21-32) mmol/L BUN (7-18) mg/dL Creatinine (0.70-1.30) mg/dL Est Cr Clr Drug Dosing Estimated GFR (MDRD) (>60) BUN/Creatinine Ratio (9-20) Glucose (80-116) mg/dL Calcium (8.6-10.2) mg/dL Total Bilirubin (0.1-1.3) mg/dL AST (5-25) IU/L ALT (12-36) U/L Alkaline Phosphatase (56-112) IU/L Creatine Kinase 39 L (60-160) IU/L Troponin I 5.8 (4.0-60.3) pg/mL NT-Pro-B Natriuret Pep 85 (<=450) pg/mL Total Protein (6.0-8.0) g/dL Albumin (3.2-4.6) g/dL Globulin g/dL Albumin/Globulin Ratio TSH, Ultra Sensitive (0.36-3.74) IU/mL Urine Color (YELLOW) Urine Appearance (CLEAR) Urine pH (5.0-6.5) Ur Specific [place] (1.010-1.025) Urine Protein (NEGATIVE) mg/dL Urine Glucose (UA) (NORMAL) mg/dL Urine Ketones (NEGATIVE) mg/dL Urine Occult Blood (NEGATIVE) Urine Nitrite (NEGATIVE) Urine Bilirubin (NEGATIVE) Urine Urobilinogen (NEGATIVE) mg/dL Ur Leukocyte Esterase (NEGATIVE) Urine RBC (0-5) Urine WBC (0-5) Ur Squamous Epith Cells (NS,R,O) Urine Bacteria (NS) Urine Opiates Screen Negative (NEGATIVE) Ur Oxycodone Screen Negative (NEGATIVE) Ur Propoxyphene Screen Negative (NEGATIVE) Ur Barbituates Screen Negative (NEGATIVE) Ur Tricyclics Screen Negative (NEGATIVE) Ur Phencyclidine Scrn Negative (NEGATIVE) Ur Amphetamine Screen Negative (NEGATIVE) Urine MDMA Screen Negative (NEGATIVE) U Benzodiazepines Scrn Negative (NEGATIVE) U Cocaine Metab Screen Negative (NEGATIVE) U Marijuana (THC) Screen Negative (NEGATIVE) Ethyl Alcohol (<0.03) % SARS Virus RNA (PCR) (NEGATIVE) 05/19/20 05/19/20 Range/Units 17:39 19:20 WBC (4.5-12.0) X10-3/uL RBC (4.30-5.75) x10(6)uL Hgb (13.5-17.8) g/dL Hct (30.0-51.3) % MCV (80-96) fL MCH (27.7-33.6) pg MCHC (32.2-35.4) g/dL RDW (11.5-15.5) % Plt Count (125-369) X10(3)uL MPV (7.4-10.4) fL Neut % (Auto) (46-82) % Lymph % (Auto) (13-37) % Mclean % (Auto) (4-12) % Eos % (Auto) (1.0-5.0) % Baso % (Auto) (0-2) % Neut # (Auto) (1.6-8.3) # Lymph # (Auto) (0.6-5.0) # Mclean # (Auto) (0.0-1.3) # Eos # (Auto) (0.0-0.8) # Baso # (Auto) (0.0-0.2) # Sodium (135-145) mmol/L Potassium (3.5-5.3) mmol/L Chloride (100-110) mmol/L Carbon Dioxide (21-32) mmol/L BUN (7-18) mg/dL Creatinine (0.70-1.30) mg/dL Est Cr Clr Drug Dosing Estimated GFR (MDRD) (>60) BUN/Creatinine Ratio (9-20) Glucose (80-116) mg/dL Calcium (8.6-10.2) mg/dL Total Bilirubin (0.1-1.3) mg/dL AST (5-25) IU/L ALT (12-36) U/L Alkaline Phosphatase (56-112) IU/L Creatine Kinase (60-160) IU/L Troponin I (4.0-60.3) pg/mL NT-Pro-B Natriuret Pep (<=450) pg/mL Total Protein (6.0-8.0) g/dL Albumin (3.2-4.6) g/dL Globulin g/dL Albumin/Globulin Ratio TSH, Ultra Sensitive (0.36-3.74) IU/mL Urine Color Brown (YELLOW) Urine Appearance Cloudy (CLEAR) Urine pH 5.0 (5.0-6.5) Ur Specific [place] 1.030 H (1.010-1.025) Urine Protein 30 H (NEGATIVE) mg/dL Urine Glucose (UA) Normal (NORMAL) mg/dL Urine Ketones 15 H (NEGATIVE) mg/dL Urine Occult Blood Large H (NEGATIVE) Urine Nitrite Negative (NEGATIVE) Urine Bilirubin Small H (NEGATIVE) Urine Urobilinogen 8 H (NEGATIVE) mg/dL Ur Leukocyte Esterase Small H (NEGATIVE) Urine RBC >100 H (0-5) Urine WBC 5-10 H (0-5) Ur Squamous Epith Cells Few H (NS,R,O) Urine Bacteria Few H (NS) Urine Opiates Screen (NEGATIVE) Ur Oxycodone Screen (NEGATIVE) Ur Propoxyphene Screen (NEGATIVE) Ur Barbituates Screen (NEGATIVE) Ur Tricyclics Screen (NEGATIVE) Ur Phencyclidine Scrn (NEGATIVE) Ur Amphetamine Screen (NEGATIVE) Urine MDMA Screen (NEGATIVE) U Benzodiazepines Scrn (NEGATIVE) U Cocaine Metab Screen (NEGATIVE) U Marijuana (THC) Screen (NEGATIVE) Ethyl Alcohol (<0.03) % SARS Virus RNA (PCR) Negative (NEGATIVE) Meds: Medications Generic Name Dose Route Start Last Admin Trade Name Freq PRN Reason Stop Dose Admin Acetaminophen 650 mg 05/19/20 20:58 Tylenol PO Q4H PRN analgesia/fever Betamethasone/Clotrimazole 0.5 gm 05/19/20 21:00 Lotrisone TOP BID JANELL Sodium Chloride 1,000 mls @ 125 mls/hr 05/19/20 18:15 05/19/20 16:45 Normal Saline IV 125 mls/hr ASDIRECTED JANELL Administration Ceftriaxone Sodium 1 gm/ 50 mls @ 200 mls/hr 05/19/20 21:15 Sodium Chloride IV Q24H JANELL Lorazepam 1 mg 05/19/20 20:51 Ativan IV Q6H PRN Nausea/Vomiting Ondansetron HCl 4 mg 05/19/20 20:51 Zofran IV Q4H PRN Nausea/Vomiting Senna/Docusate Sodium 1 tab 05/19/20 20:51 Senna Plus PO BID PRN Constipation Sodium Chloride 10 ml 05/19/20 16:45 05/19/20 19:02 Saline Flush FLUSH 10 ml ASDIRECTED PRN Administration Keep Vein Open Discontinued Medications Generic Name Dose Route Start Last Admin Trade Name Freq PRN Reason Stop Dose Admin Acetaminophen 650 mg 05/19/20 20:51 Tylenol PO Q4H PRN Pain (Mild 1-3)/fever Sodium Chloride 1,000 mls @ 999 mls/hr 05/19/20 18:43 05/19/20 16:55 Normal Saline IV 05/19/20 19:43 999 mls/hr .BOLUS ONE Administration Iopamidol 100 ml 05/19/20 20:02 Isovue-370 (76%) IV 05/19/20 20:03 ONETIME ONE Departure - Departure Time of Disposition: 20:30 Disposition: Admitted As Inpatient 65 Condition: Good Clinical Impression: UTI (urinary tract infection), FTT (failure to thrive) in adult, Weakness, Dysphagia - Discharge Information Referrals: Reyes Canseco MD [Primary Care Provider] - Sepsis Event Note (ED) - Evaluation Sepsis Screening Result: No Definite Risk - Focused Exam Vital Signs: Vital Signs Temp Pulse Resp BP Pulse Ox 05/19/20 20:20 80 18 88/55 L 100 05/19/20 16:50 36.4 C 107 H 16 91/64 99 - My Orders Last 24 Hours: My Active Orders 05/19/20 16:45 Sodium Chloride 0.9% [Saline Flush] 10 ml FLUSH ASDIRECTED PRN Saline Lock Insert [OM.PC] Routine EKG 12 Lead [EK] Routine 05/19/20 16:46 EKG Documentation Completion [RC] ASDIRECTED 05/19/20 17:47 Head wo Cont [CT] Stat 05/19/20 17:55 MYOGLOBIN, SERUM Stat 05/19/20 18:15 Sodium Chloride 0.9% [Normal Saline] 1,000 ml IV ASDIRECTED 05/19/20 19:26 Chest 1V Frontal [CR] Stat 05/19/20 19:56 Abdomen Pelvis w Cont [CT] Stat 05/19/20 20:51 Patient Status [ADT] Routine Oxygen Therapy [RC] PRN Up With Assistance [RC] ASDIRECTED VTE/DVT Education [RC] Per Unit Routine Vital Signs [RC] Q4H PT Evaluation and Treatment [CONS] Routine Docusate Sodium/Sennosides [Senna Plus] 1 tab PO BID PRN LORazepam [Ativan] 1 mg IV Q6H PRN Ondansetron [Zofran] 4 mg IV Q4H PRN Resuscitation Status Routine 05/19/20 20:56 Pulse Oximetry [RC] PRN Sequential Compression Device [OM.PC] Per Unit Routine 05/19/20 20:58 Acetaminophen [Tylenol] 650 mg PO Q4H PRN 05/19/20 21:00 Betamethasone/Clotrimazole [Lotrisone] 0.5 gm TOP BID 05/19/20 21:01 CULTURE URINE [RM] Stat 05/19/20 21:15 cefTRIAXone [Rocephin] 1 gm Sodium Chloride 0.9% [Normal Saline] 50 ml IV Q24H 05/20/20 05:11 CBC WITH AUTO DIFF [HEME] AM COMPREHENSIVE METABOLIC PN,CMP [CHEM] AM - Assessment/Plan Last 24 Hours: My Active Orders 05/19/20 16:45 Sodium Chloride 0.9% [Saline Flush] 10 ml FLUSH ASDIRECTED PRN Saline Lock Insert [OM.PC] Routine EKG 12 Lead [EK] Routine 05/19/20 16:46 EKG Documentation Completion [RC] ASDIRECTED 05/19/20 17:47 Head wo Cont [CT] Stat 05/19/20 17:55 MYOGLOBIN, SERUM Stat 05/19/20 18:15 Sodium Chloride 0.9% [Normal Saline] 1,000 ml IV ASDIRECTED 05/19/20 19:26 Chest 1V Frontal [CR] Stat 05/19/20 19:56 Abdomen Pelvis w Cont [CT] Stat 05/19/20 20:51 Patient Status [ADT] Routine Oxygen Therapy [RC] PRN Up With Assistance [RC] ASDIRECTED VTE/DVT Education [RC] Per Unit Routine Vital Signs [RC] Q4H PT Evaluation and Treatment [CONS] Routine Docusate Sodium/Sennosides [Senna Plus] 1 tab PO BID PRN LORazepam [Ativan] 1 mg IV Q6H PRN Ondansetron [Zofran] 4 mg IV Q4H PRN Resuscitation Status Routine 05/19/20 20:56 Pulse Oximetry [RC] PRN Sequential Compression Device [OM.PC] Per Unit Routine 05/19/20 20:58 Acetaminophen [Tylenol] 650 mg PO Q4H PRN 05/19/20 21:00 Betamethasone/Clotrimazole [Lotrisone] 0.5 gm TOP BID 05/19/20 21:01 CULTURE URINE [RM] Stat 05/19/20 21:15 cefTRIAXone [Rocephin] 1 gm Sodium Chloride 0.9% [Normal Saline] 50 ml IV Q24H 05/20/20 05:11 CBC WITH AUTO DIFF [HEME] AM COMPREHENSIVE METABOLIC PN,CMP [CHEM] AM
[2020-05-19] MEDS ORDERED: cefTRIAXone 1 GM in Sodium Chloride 0.9% 50 ML IV SCH (22:00)
[2020-05-19] MEDS: Betamethasone Dipropionate/Clotrimazole 0.05-1% Crm 15 GM Tube TOP SCH (22:21)
[2020-05-20] MEDS: Sodium Chloride 0.9% 1,000 ML IV SCH ×3 (03:14→22:11)
[2020-05-20] MEDS ORDERED: Potassium Chloride 20 MEQ Tab.ER PO SCH (09:00)
[2020-05-20] MEDS: Betamethasone Dipropionate/Clotrimazole 0.05-1% Crm 15 GM Tube TOP SCH ×2 (10:00→21:21)
[2020-05-20] MEDS: Potassium Chloride 100 ML IV SCH ×2 (11:11→13:03)
--- NOTE | 2020-05-20 11:13 | PCM.HP.2 ---
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 She noted he had significant weight loss since she had last seen him, had a whole week of pre-made meals uneaten. He states that he has had trouble swallowing liquids for about 4 weeks, when asked if solids get stuck he states he doesn't know. No fevers, or chills. No nausea or vomiting. No sure on last bowel movement. He did eat caramel roll and blueberries this morning and had small amount of juice, having trouble clearing his throat. Denies any neck swelling or mass. Dislikes answering any questions, which his disease case manager rn states is normal for him. She stated that better to give him options so he feels like he has a choice. He does have [facility] coming in. ER evaluated him, found to have UTI, dehydration, hypokalemia. 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 He refused alf placement, he prefers to go home and rather than being in alf per disease case manager rn. She thinks he would be open to hospice if his swallowing problem can't be corrected. Generalized Pain Score (Numeric/FACES): 2 - Related Data Allergies/Adverse Reactions: Allergies Allergy/AdvReac Type Severity Reaction Status Date / Time No Known Allergies Allergy Verified 12/24/19 12:13 Home Medications: Home Meds Furosemide 40 mg PO DAILY 12/24/19 [History] Acetaminophen [Tylenol] 650 mg PO Q4H PRN tablet 03/11/20 [Rx] Betamethasone/Clotrimazole [Lotrisone] 0 gm TOP BID tube 03/11/20 [Rx] Potassium Chloride 8 meq PO DAILY 05/20/20 [History] Spironolactone [Aldactone] 100 mg PO DAILY 05/20/20 [History] Past Medical History - Past Health History Medical/Surgical History: Denies Medical/Surgical History HEENT History: Reports: Impaired Vision Cardiovascular History: Reports: Hypertension Respiratory History: Reports: Other (See Below) Other Respiratory History: has hx of tobaco abuse. previous chart indicates that he had quit smoking 1960 but chewed tobacco after that. Gastrointestinal History: Reports: Cirrhosis Genitourinary History: Reports: Other (See Below) Other Genitourinary History: prostate problem- on flomax. Musculoskeletal History: Reports: Gout Other Musculoskeletal History: LEFT LEG FRACTURE Neurological History: Reports: Head Trauma Psychiatric History: Reports: Other (See Below) Other Psychiatric History: ETOH and tobaco abuse - Infectious Disease History Infectious Disease History: Reports: Chicken Pox Social & Family History - Family History Family Medical History: Unobtainable - Caffeine Use Caffeine Use: Reports: None - Recreational Drug Use Recreational Drug Use: No H&P Review of Systems - Review of Systems: Review Of Systems: See Below Reason Not Obtained: limited due to uncooperative. General: Reports: Decreased Appetite, Weight Loss. Denies: Fever, Chills Pulmonary: Denies: Shortness of Breath, Cough Cardiovascular: Denies: Chest Pain Gastrointestinal: Reports: Anorexia, Decreased Appetite, Difficulty Swallowing. Denies: Abdominal Pain, Constipation, Diarrhea, Vomiting Genitourinary: Denies: Dysuria, Frequency Musculoskeletal: Denies: Neck Pain Skin: Reports: Bruising Exam - Exam Exam: See Below - Vital Signs Vital Signs: Last Vital Signs Temp 97.8 F 05/20/20 08:06 Pulse 80 05/20/20 08:06 Resp 16 05/20/20 08:06 BP 97/55 L 05/20/20 08:06 Pulse Ox 95 05/20/20 08:06 Weight: 135 lb 7 oz - Exam General: Alert, Oriented, Other (Cathetic). No: Cooperative, Mild Distress Neck: Supple, Trachea Midline, Other (no neck mass, swelling or deformity). No: Lymphadenopathy Lungs: Clear to Auscultation, Normal Respiratory Effort Cardiovascular: Regular Rate, Regular Rhythm GI/Abdominal Exam: Normal Bowel Sounds, Soft, Non-Tender, No Distention Extremities: No Pedal Edema Peripheral Pulses: 2+: Radial (L), Radial (R) Skin: Ecchymosis (left jara) Neuro Extensive - Mental Status: Alert, Oriented x3, Normal Mood/Affect - Patient Data Lab Results Last 24 hrs: Laboratory Results - last 24 hr 05/19/20 05/19/20 05/19/20 Range/Units 17:02 17:02 17:02 WBC 12.1 H (4.5-12.0) X10-3/uL RBC 4.77 (4.30-5.75) x10(6)uL Hgb 15.3 (13.5-17.8) g/dL Hct 45.0 (30.0-51.3) % MCV 94.4 (80-96) fL MCH 32.1 (27.7-33.6) pg MCHC 34.0 (32.2-35.4) g/dL RDW 13.7 (11.5-15.5) % Plt Count 344 (125-369) X10(3)uL MPV 8.4 (7.4-10.4) fL Neut % (Auto) 80.3 (46-82) % Lymph % (Auto) 8.3 L (13-37) % [place] % (Auto) 8.8 (4-12) % Eos % (Auto) 0 L (1.0-5.0) % Baso % (Auto) 3 H (0-2) % Neut # (Auto) 9.7 H (1.6-8.3) # Lymph # (Auto) 1.0 (0.6-5.0) # Vil[place] # (Auto) 1.1 (0.0-1.3) # Eos # (Auto) 0.0 (0.0-0.8) # Baso # (Auto) 0.3 H (0.0-0.2) # Add Manual Diff Neutrophils % (Manual) (46-82) % Lymphocytes % (Manual) (13-37) % Monocytes % (Manual) (4-12) % Eosinophils % (Manual) (0-5) % Sodium 125 L (135-145) mmol/L Potassium 3.8 (3.5-5.3) mmol/L Chloride 89 L* D (100-110) mmol/L Carbon Dioxide 27 (21-32) mmol/L BUN 18 (7-18) mg/dL Creatinine 1.1 (0.70-1.30) mg/dL Est Cr Clr Drug Dosing TNP Estimated GFR (MDRD) > 60 (>60) BUN/Creatinine Ratio 16.4 (9-20) Glucose 135 H (80-116) mg/dL Calcium 9.3 (8.6-10.2) mg/dL Total Bilirubin 4.6 H (0.1-1.3) mg/dL AST 54 H D (5-25) IU/L ALT 26 D (12-36) U/L Alkaline Phosphatase 117 H (56-112) IU/L Creatine Kinase (60-160) IU/L Troponin I (4.0-60.3) pg/mL NT-Pro-B Natriuret Pep (<=450) pg/mL Total Protein 8.1 H (6.0-8.0) g/dL Albumin 2.8 L (3.2-4.6) g/dL Globulin 5.3 g/dL Albumin/Globulin Ratio 0.5 TSH, Ultra Sensitive 1.86 (0.36-3.74) IU/mL Urine Color (YELLOW) Urine Appearance (CLEAR) Urine pH (5.0-6.5) Ur Specific [place] (1.010-1.025) Urine Protein (NEGATIVE) mg/dL Urine Glucose (UA) (NORMAL) mg/dL Urine Ketones (NEGATIVE) mg/dL Urine Occult Blood (NEGATIVE) Urine Nitrite (NEGATIVE) Urine Bilirubin (NEGATIVE) Urine Urobilinogen (NEGATIVE) mg/dL Ur Leukocyte Esterase (NEGATIVE) Urine RBC (0-5) Urine WBC (0-5) Ur Squamous Epith Cells (NS,R,O) Urine Bacteria (NS) Urine Opiates Screen (NEGATIVE) Ur Oxycodone Screen (NEGATIVE) Ur Propoxyphene Screen (NEGATIVE) Ur Barbituates Screen (NEGATIVE) Ur Tricyclics Screen (NEGATIVE) Ur Phencyclidine Scrn (NEGATIVE) Ur Amphetamine Screen (NEGATIVE) Urine MDMA Screen (NEGATIVE) U Benzodiazepines Scrn (NEGATIVE) U Cocaine Metab Screen (NEGATIVE) U Marijuana (THC) Screen (NEGATIVE) Ethyl Alcohol < 0.03 (<0.03) % SARS Virus RNA (PCR) (NEGATIVE) 05/19/20 05/19/20 05/19/20 Range/Units 17:02 17:02 17:39 WBC (4.5-12.0) X10-3/uL RBC (4.30-5.75) x10(6)uL Hgb (13.5-17.8) g/dL Hct (30.0-51.3) % MCV (80-96) fL MCH (27.7-33.6) pg MCHC (32.2-35.4) g/dL RDW (11.5-15.5) % Plt Count (125-369) X10(3)uL MPV (7.4-10.4) fL Neut % (Auto) (46-82) % Lymph % (Auto) (13-37) % [place] % (Auto) (4-12) % Eos % (Auto) (1.0-5.0) % Baso % (Auto) (0-2) % Neut # (Auto) (1.6-8.3) # Lymph # (Auto) (0.6-5.0) # Vilas # (Auto) (0.0-1.3) # Eos # (Auto) (0.0-0.8) # Baso # (Auto) (0.0-0.2) # Add Manual Diff Neutrophils % (Manual) (46-82) % Lymphocytes % (Manual) (13-37) % Monocytes % (Manual) (4-12) % Eosinophils % (Manual) (0-5) % Sodium (135-145) mmol/L Potassium (3.5-5.3) mmol/L Chloride (100-110) mmol/L Carbon Dioxide (21-32) mmol/L BUN (7-18) mg/dL Creatinine (0.70-1.30) mg/dL Est Cr Clr Drug Dosing Estimated GFR (MDRD) (>60) BUN/Creatinine Ratio (9-20) Glucose (80-116) mg/dL Calcium (8.6-10.2) mg/dL Total Bilirubin (0.1-1.3) mg/dL AST (5-25) IU/L ALT (12-36) U/L Alkaline Phosphatase (56-112) IU/L Creatine Kinase 39 L (60-160) IU/L Troponin I 5.8 (4.0-60.3) pg/mL NT-Pro-B Natriuret Pep 85 (<=450) pg/mL Total Protein (6.0-8.0) g/dL Albumin (3.2-4.6) g/dL Globulin g/dL Albumin/Globulin Ratio TSH, Ultra Sensitive (0.36-3.74) IU/mL Urine Color (YELLOW) Urine Appearance (CLEAR) Urine pH (5.0-6.5) Ur Specific [place] (1.010-1.025) Urine Protein (NEGATIVE) mg/dL Urine Glucose (UA) (NORMAL) mg/dL Urine Ketones (NEGATIVE) mg/dL Urine Occult Blood (NEGATIVE) Urine Nitrite (NEGATIVE) Urine Bilirubin (NEGATIVE) Urine Urobilinogen (NEGATIVE) mg/dL Ur Leukocyte Esterase (NEGATIVE) Urine RBC (0-5) Urine WBC (0-5) Ur Squamous Epith Cells (NS,R,O) Urine Bacteria (NS) Urine Opiates Screen Negative (NEGATIVE) Ur Oxycodone Screen Negative (NEGATIVE) Ur Propoxyphene Screen Negative (NEGATIVE) Ur Barbituates Screen Negative (NEGATIVE) Ur Tricyclics Screen Negative (NEGATIVE) Ur Phencyclidine Scrn Negative (NEGATIVE) Ur Amphetamine Screen Negative (NEGATIVE) Urine MDMA Screen Negative (NEGATIVE) U Benzodiazepines Scrn Negative (NEGATIVE) U Cocaine Metab Screen Negative (NEGATIVE) U Marijuana (THC) Screen Negative (NEGATIVE) Ethyl Alcohol (<0.03) % SARS Virus RNA (PCR) (NEGATIVE) 05/19/20 05/19/20 05/20/20 Range/Units 17:39 19:20 06:30 WBC 6.2 (4.5-12.0) X10-3/uL RBC 3.94 L (4.30-5.75) x10(6)uL Hgb 12.8 L (13.5-17.8) g/dL Hct 37.0 (30.0-51.3) % MCV 94.1 (80-96) fL MCH 32.5 (27.7-33.6) pg MCHC 34.5 (32.2-35.4) g/dL RDW 14.2 (11.5-15.5) % Plt Count 264 (125-369) X10(3)uL MPV 8.0 (7.4-10.4) fL Neut % (Auto) (46-82) % Lymph % (Auto) (13-37) % [place] % (Auto) (4-12) % Eos % (Auto) (1.0-5.0) % Baso % (Auto) (0-2) % Neut # (Auto) (1.6-8.3) # Lymph # (Auto) (0.6-5.0) # Vil[place] # (Auto) (0.0-1.3) # Eos # (Auto) (0.0-0.8) # Baso # (Auto) (0.0-0.2) # Add Manual Diff Yes Neutrophils % (Manual) 60 (46-82) % Lymphocytes % (Manual) 25 (13-37) % Monocytes % (Manual) 14 H (4-12) % Eosinophils % (Manual) 1 (0-5) % Sodium (135-145) mmol/L Potassium (3.5-5.3) mmol/L Chloride (100-110) mmol/L Carbon Dioxide (21-32) mmol/L BUN (7-18) mg/dL Creatinine (0.70-1.30) mg/dL Est Cr Clr Drug Dosing Estimated GFR (MDRD) (>60) BUN/Creatinine Ratio (9-20) Glucose (80-116) mg/dL Calcium (8.6-10.2) mg/dL Total Bilirubin (0.1-1.3) mg/dL AST (5-25) IU/L ALT (12-36) U/L Alkaline Phosphatase (56-112) IU/L Creatine Kinase (60-160) IU/L Troponin I (4.0-60.3) pg/mL NT-Pro-B Natriuret Pep (<=450) pg/mL Total Protein (6.0-8.0) g/dL Albumin (3.2-4.6) g/dL Globulin g/dL Albumin/Globulin Ratio TSH, Ultra Sensitive (0.36-3.74) IU/mL Urine Color Brown (YELLOW) Urine Appearance Cloudy (CLEAR) Urine pH 5.0 (5.0-6.5) Ur Specific [place] 1.030 H (1.010-1.025) Urine Protein 30 H (NEGATIVE) mg/dL Urine Glucose (UA) Normal (NORMAL) mg/dL Urine Ketones 15 H (NEGATIVE) mg/dL Urine Occult Blood Large H (NEGATIVE) Urine Nitrite Negative (NEGATIVE) Urine Bilirubin Small H (NEGATIVE) Urine Urobilinogen 8 H (NEGATIVE) mg/dL Ur Leukocyte Esterase Small H (NEGATIVE) Urine RBC >100 H (0-5) Urine WBC 5-10 H (0-5) Ur Squamous Epith Cells Few H (NS,R,O) Urine Bacteria Few H (NS) Urine Opiates Screen (NEGATIVE) Ur Oxycodone Screen (NEGATIVE) Ur Propoxyphene Screen (NEGATIVE) Ur Barbituates Screen (NEGATIVE) Ur Tricyclics Screen (NEGATIVE) Ur Phencyclidine Scrn (NEGATIVE) Ur Amphetamine Screen (NEGATIVE) Urine MDMA Screen (NEGATIVE) U Benzodiazepines Scrn (NEGATIVE) U Cocaine Metab Screen (NEGATIVE) U Marijuana (THC) Screen (NEGATIVE) Ethyl Alcohol (<0.03) % SARS Virus RNA (PCR) Negative (NEGATIVE) 05/20/20 Range/Units 06:30 WBC (4.5-12.0) X10-3/uL RBC (4.30-5.75) x10(6)uL Hgb (13.5-17.8) g/dL Hct (30.0-51.3) % MCV (80-96) fL MCH (27.7-33.6) pg MCHC (32.2-35.4) g/dL RDW (11.5-15.5) % Plt Count (125-369) X10(3)uL MPV (7.4-10.4) fL Neut % (Auto) (46-82) % Lymph % (Auto) (13-37) % [place] % (Auto) (4-12) % Eos % (Auto) (1.0-5.0) % Baso % (Auto) (0-2) % Neut # (Auto) (1.6-8.3) # Lymph # (Auto) (0.6-5.0) # [place] # (Auto) (0.0-1.3) # Eos # (Auto) (0.0-0.8) # Baso # (Auto) (0.0-0.2) # Add Manual Diff Neutrophils % (Manual) (46-82) % Lymphocytes % (Manual) (13-37) % Monocytes % (Manual) (4-12) % Eosinophils % (Manual) (0-5) % Sodium 131 L (135-145) mmol/L Potassium 2.9 L (3.5-5.3) mmol/L Chloride 96 L D (100-110) mmol/L Carbon Dioxide 28 (21-32) mmol/L BUN 14 (7-18) mg/dL Creatinine 1.0 (0.70-1.30) mg/dL Est Cr Clr Drug Dosing 55.46 Estimated GFR (MDRD) > 60 (>60) BUN/Creatinine Ratio 14.0 (9-20) Glucose 101 (80-116) mg/dL Calcium 8.4 L (8.6-10.2) mg/dL Total Bilirubin 3.1 H (0.1-1.3) mg/dL AST 30 H D (5-25) IU/L ALT 20 D (12-36) U/L Alkaline Phosphatase 92 (56-112) IU/L Creatine Kinase (60-160) IU/L Troponin I (4.0-60.3) pg/mL NT-Pro-B Natriuret Pep (<=450) pg/mL Total Protein 6.3 (6.0-8.0) g/dL Albumin 2.2 L (3.2-4.6) g/dL Globulin 4.1 g/dL Albumin/Globulin Ratio 0.5 TSH, Ultra Sensitive (0.36-3.74) IU/mL Urine Color (YELLOW) Urine Appearance (CLEAR) Urine pH (5.0-6.5) Ur Specific [place] (1.010-1.025) Urine Protein (NEGATIVE) mg/dL Urine Glucose (UA) (NORMAL) mg/dL Urine Ketones (NEGATIVE) mg/dL Urine Occult Blood (NEGATIVE) Urine Nitrite (NEGATIVE) Urine Bilirubin (NEGATIVE) Urine Urobilinogen (NEGATIVE) mg/dL Ur Leukocyte Esterase (NEGATIVE) Urine RBC (0-5) Urine WBC (0-5) Ur Squamous Epith Cells (NS,R,O) Urine Bacteria (NS) Urine Opiates Screen (NEGATIVE) Ur Oxycodone Screen (NEGATIVE) Ur Propoxyphene Screen (NEGATIVE) Ur Barbituates Screen (NEGATIVE) Ur Tricyclics Screen (NEGATIVE) Ur Phencyclidine Scrn (NEGATIVE) Ur Amphetamine Screen (NEGATIVE) Urine MDMA Screen (NEGATIVE) U Benzodiazepines Scrn (NEGATIVE) U Cocaine Metab Screen (NEGATIVE) U Marijuana (THC) Screen (NEGATIVE) Ethyl Alcohol (<0.03) % SARS Virus RNA (PCR) (NEGATIVE) Result Diagrams: 05/20/20 06:30 05/20/20 06:30 Sepsis Event Note - Evaluation Sepsis Screening Result: No Definite Risk - Focused Exam Vital Signs: Vital Signs Temp Pulse Resp BP Pulse Ox 05/20/20 08:06 97.8 F 80 16 97/55 L 95 05/20/20 05:00 97.1 F 78 16 96/64 95 05/20/20 01:00 97 F 74 16 104/62 95 Date Exam was Performed: 05/20/20 Time Exam was Performed: 15:40 *Q Meaningful Use (ADM) - VTE Risk Assess *Q Each Risk Factor Represents 1 Point: None Total Score 1 Point Risk Factors: 0 Each Risk Factor Represents 2 Points: None Total Score 2 Point Risk Factors: 0 Each Risk Factor Represents 3 Points: Age 75 Years or Greater Total Score 3 Point Risk Factors: 3 Each Risk Factor Represents 5 Points: None Total Score 5 Point Risk Factors: 0 Venous Thromboembolism Risk Factor Score *Q: 3 - Problem List (1) Dysphagia SNOMED Code(s): 80037517, 879412047 ICD Code: R13.10 - DYSPHAGIA, UNSPECIFIED Status: Acute Current Visit: Yes (2) UTI (urinary tract infection) SNOMED Code(s): 68051551 ICD Code: N39.0 - URINARY TRACT INFECTION, SITE NOT SPECIFIED Status: Acute Current Visit: Yes (3) Hyponatremia SNOMED Code(s): 12895768 ICD Code: E87.1 - HYPO-OSMOLALITY AND HYPONATREMIA Status: Resolved Current Visit: No Problem Details: 125 up this morning to 131. (4) Hypokalemia SNOMED Code(s): 46599756 ICD Code: E87.6 - HYPOKALEMIA Status: Acute Current Visit: No (5) Weakness SNOMED Code(s): 51199936 ICD Code: R53.1 - WEAKNESS Status: Acute Current Visit: Yes (6) FTT (failure to thrive) in adult SNOMED Code(s): 549700752 ICD Code: R62.7 - ADULT FAILURE TO THRIVE Status: Chronic Current Visit: Yes (7) Physical deconditioning SNOMED Code(s): 55181777540053 ICD Code: R53.81 - OTHER MALAISE Status: Chronic Current Visit: No (8) Alcoholic liver disease SNOMED Code(s): 64435594 ICD Code: K70.9 - ALCOHOLIC LIVER DISEASE, UNSPECIFIED Status: Chronic Current Visit: No (9) HTN (hypertension) SNOMED Code(s): 61230524 ICD Code: I10 - ESSENTIAL (PRIMARY) HYPERTENSION Status: Chronic Current Visit: No Qualifiers: Hypertension type: essential hypertension Qualified Code(s): I10 - Essential (primary) hypertension (10) Palliative care encounter SNOMED Code(s): 531608635, 190189227 ICD Code: Z51.5 - ENCOUNTER FOR PALLIATIVE CARE Status: Chronic Current Visit: No Problem List Initiated/Reviewed/Updated: Yes Orders Last 24hrs: Active Orders 24 hr Category Date Time Status Patient Status [ADT] Routine ADT 05/19/20 20:51 Active EKG Documentation Completion [RC] ASDIRECTED Care 05/19/20 16:46 Active Oxygen Therapy [RC] PRN Care 05/19/20 20:51 Active Pulse Oximetry [RC] PRN Care 05/19/20 20:56 Active Up With Assistance [RC] ASDIRECTED Care 05/19/20 20:51 Active VTE/DVT Education [RC] Per Unit Routine Care 05/19/20 20:51 Active Vital Signs [RC] Q4H Care 05/19/20 20:51 Active PT Evaluation and Treatment [CONS] Routine Cons 05/19/20 20:51 Active Regular Diet [DIET] Diet 05/20/20 Breakfast Active Abdomen Pelvis w Cont [CT] Stat Exams 05/19/20 19:56 Taken Chest 1V Frontal [CR] Stat Exams 05/19/20 19:26 Taken Head wo Cont [CT] Stat Exams 05/19/20 17:47 Taken BASIC METABOLIC PANEL,BMP [CHEM] Routine Lab 05/21/20 06:00 Ordered CULTURE URINE [RM] Stat Lab 05/19/20 17:39 Received MYOGLOBIN, SERUM Stat Lab 05/19/20 17:55 Received Acetaminophen [Tylenol] Med 05/19/20 20:58 Active 650 mg PO Q4H PRN Betamethasone/Clotrimazole [Lotrisone] Med 05/19/20 21:00 Active 0 gm TOP BID Docusate Sodium/Sennosides [Senna Plus] Med 05/19/20 20:51 Active 1 tab PO BID PRN LORazepam [Ativan] Med 05/19/20 20:51 Active 1 mg IV Q6H PRN Ondansetron [Zofran] Med 05/19/20 20:51 Active 4 mg IV Q4H PRN Potassium Chloride [KCL 20 MEQ in Water 100 ML] 100 ml Med 05/20/20 10:00 Active IV Q2H Sodium Chloride 0.9% [Normal Saline] 1,000 ml Med 05/19/20 18:15 Active IV ASDIRECTED Sodium Chloride 0.9% [Saline Flush] Med 05/19/20 16:45 Active 10 ml FLUSH ASDIRECTED PRN cefTRIAXone [Rocephin] Med 05/20/20 22:00 Active 1 gm IVPUSH Q24H Saline Lock Insert [OM.PC] Routine Oth 05/19/20 16:45 Ordered Sequential Compression Device [OM.PC] Per Unit Routine Oth 05/19/20 20:56 Ordered Resuscitation Status Routine Resus Stat 05/19/20 20:51 Ordered EKG 12 Lead [EK] Routine Ther 05/19/20 16:45 Ordered Medication Orders Acetaminophen (Tylenol) 650 mg PO Q4H PRN PRN Reason: analgesia/fever Betamethasone/Clotrimazole (Lotrisone) 0 gm TOP BID JANELL Last Admin: 05/19/20 22:21 Dose: 1 applic Documented by: THERESA Ceftriaxone Sodium (Rocephin) 1 gm IVPUSH Q24H JANELL Sodium Chloride (Normal Saline) 1,000 mls @ 100 mls/hr IV ASDIRECTED JANELL Last Admin: 05/20/20 03:14 Dose: 125 mls/hr Documented by: Infusion: 05/20/20 00:45 Dose: 125 mls/hr Documented by: Admin: 05/19/20 16:45 Dose: 125 mls/hr Documented by: LEONARDO Potassium Chloride (Kcl 20 Meq In Water 100 Ml) 100 mls @ 50 mls/hr IV Q2H [facility] Stop: 05/20/20 13:59 Lorazepam (Ativan) 1 mg IV Q6H PRN PRN Reason: Nausea/Vomiting Ondansetron HCl (Zofran) 4 mg IV Q4H PRN PRN Reason: Nausea/Vomiting Senna/Docusate Sodium (Senna Plus) 1 tab PO BID PRN PRN Reason: Constipation Sodium Chloride (Saline Flush) 10 ml FLUSH ASDIRECTED PRN PRN Reason: Keep Vein Open Last Admin: 05/19/20 19:02 Dose: 10 ml Documented by: [id number] Assessment/Plan Comment:: 1. Admit for UTI, dysphagia, failure to thrive in adult. 2. Rocephin 1 g IV q24h, urine culture pending. 3. IVF at 100 ml/hr, sodium up to 131 today. KCL 20mEQ IV x 2 bags. Repeat labs tomorrow. 4. Dysphagia: video swallow study planned for Monday at 10 am. 5. Dysphagia diet. 6. Weakness: PT evaluate & treat. 7. DVT: SCDs BLE. 8. FULL CODE. 9. Has [facility] project manager industrial, Shalini at [facility], depending on his hospital course, may need to go home with [facility] to stay at home. 10. Adjust treatment as necessary. - Mortality Measure Prognosis:: Poor
[2020-05-20] MEDS ORDERED: cefTRIAXone 1 GM Vial IVPUSH SCH (22:00)
[2020-05-21] MEDS: Sodium Chloride 0.9% 1,000 ML IV SCH ×2 (08:22→18:27)
[2020-05-21] MEDS: Betamethasone Dipropionate/Clotrimazole 0.05-1% Crm 15 GM Tube TOP SCH ×2 (08:23→21:00)
--- NOTE | 2020-05-21 14:21 | PCM.PN ---
- General Info Date of Service: 05/21/20 Subjective Update: Eyad has been eating about 25-50% of meals yesterday, having coughing with thickened liquids. Video swallow study can be done tomorrow with speech therapy and radiology, at first he did not want to do the test, offered [place] but didn't want to do that either, I explained we won't know why he is having trouble swallow without doing the test, he still declined. Muna Mccray, spoke with him after I had rounded and he then was agreeable to do the testing. We went back after morning conference and Muna verified with myself present that he is agreeable to do the test tomorrow. He had refused lab this morning and they came back and then he was agreeable to get it drawn. Gala, his business case analyst with [facility] says he is usually sarcastic and uncooperative, depends on how you present your questions or options. Refused to see PT/OT this morning. - Patient Data Vitals - Most Recent: Last Vital Signs Temp 97.4 F 05/21/20 03:58 Pulse 82 05/21/20 03:58 Resp 16 05/21/20 03:58 BP 96/52 L 05/21/20 03:58 Pulse Ox 97 05/21/20 03:58 Weight - Most Recent: 140 lb 6 oz I&O - Last 24 Hours: Intake & Output 05/20/20 05/21/20 05/21/20 22:59 06:59 14:59 Intake Total 1081 784 Balance 1081 784 Lab Results Last 24 Hours: Laboratory Results - last 24 hr 05/21/20 Range/Units 06:30 Sodium 133 L (135-145) mmol/L Potassium 3.3 L (3.5-5.3) mmol/L Chloride 101 D (100-110) mmol/L Carbon Dioxide 23 (21-32) mmol/L BUN 12 (7-18) mg/dL Creatinine 0.9 (0.70-1.30) mg/dL Est Cr Clr Drug Dosing 63.87 mL/min Estimated GFR (MDRD) > 60 (>60) BUN/Creatinine Ratio 13.3 (9-20) Glucose 105 (80-116) mg/dL Calcium 7.9 L (8.6-10.2) mg/dL Clive Results Last 24 Hours: Microbiology 05/19/20 17:39 Urine Culture - Preliminary Urine, Voided MIXED POSITIVE GEOFF DAY 1 Med Orders - Current: Current Medications Acetaminophen (Tylenol) 650 mg PO Q4H PRN PRN Reason: analgesia/fever Betamethasone/Clotrimazole (Lotrisone) 0 gm TOP BID [facility] Last Admin: 05/21/20 08:23 Dose: Not Given Documented by: Sodium Chloride (Normal Saline) 1,000 mls @ 100 mls/hr IV ASDIRECTED [facility] Last Admin: 05/21/20 08:22 Dose: 125 mls/hr Documented by: Lorazepam (Ativan) 1 mg IV Q6H PRN PRN Reason: Nausea/Vomiting Ondansetron HCl (Zofran) 4 mg IV Q4H PRN PRN Reason: Nausea/Vomiting Senna/Docusate Sodium (Senna Plus) 1 tab PO BID PRN PRN Reason: Constipation Sodium Chloride (Saline Flush) 10 ml FLUSH ASDIRECTED PRN PRN Reason: Keep Vein Open Last Admin: 05/19/20 19:02 Dose: 10 ml Documented by: Discontinued Medications Acetaminophen (Tylenol) 650 mg PO Q4H PRN PRN Reason: Pain (Mild 1-3)/fever Ceftriaxone Sodium (Rocephin) 1 gm IVPUSH Q24H [facility] Last Admin: 05/20/20 21:20 Dose: 1 gm Documented by: Sodium Chloride (Normal Saline) 1,000 mls @ 999 mls/hr IV .BOLUS ONE Stop: 05/19/20 19:43 Last Admin: 05/19/20 16:55 Dose: 999 mls/hr Documented by: Ceftriaxone Sodium 1 gm/ (Sodium Chloride) 50 mls @ 200 mls/hr IV Q24H [facility] Last Admin: 05/19/20 22:23 Dose: 200 mls/hr Documented by: Potassium Chloride (Kcl 20 Meq In Water 100 Ml) 100 mls @ 50 mls/hr IV Q2H [facility] Stop: 05/20/20 13:59 Last Admin: 05/20/20 13:03 Dose: 50 mls/hr Documented by: Iopamidol (Isovue-370 (76%)) 100 ml IV ONETIME ONE Stop: 05/19/20 20:03 - Exam General: Alert, Oriented, No Acute Distress (cathetic). No: Cooperative Lungs: Clear to Auscultation, Normal Respiratory Effort Cardiovascular: Regular Rate, Regular Rhythm GI/Abdominal Exam: Soft, Non-Tender, No Distention, Abnormal Bowel Sounds (hypoactive) Sepsis Event Note - Evaluation Sepsis Screening Result: No Definite Risk - Focused Exam Vital Signs: Vital Signs Temp Pulse Resp BP Pulse Ox 05/21/20 03:58 97.4 F 82 16 96/52 L 97 Date Exam was Performed: 05/21/20 Time Exam was Performed: 14:15 - Problem List & Annotations (1) Dysphagia SNOMED Code(s): 51062181, 693403892 Code(s): R13.10 - DYSPHAGIA, UNSPECIFIED Status: Acute Current Visit: Yes (2) Malnutrition SNOMED Code(s): 53165657 Code(s): E46 - UNSPECIFIED PROTEIN-CALORIE MALNUTRITION Status: Acute Current Visit: Yes (3) Hyponatremia SNOMED Code(s): 45682759 Code(s): E87.1 - HYPO-OSMOLALITY AND HYPONATREMIA Status: Resolved Current Visit: No Annotation/Comment:: 131 up this morning to 133. (4) Hypokalemia SNOMED Code(s): 49579080 Code(s): E87.6 - HYPOKALEMIA Status: Acute Current Visit: No Annotation/Comment:: 2.9 up to 3.3 today. (5) Weakness SNOMED Code(s): 40664078 Code(s): R53.1 - WEAKNESS Status: Acute Current Visit: Yes (6) FTT (failure to thrive) in adult SNOMED Code(s): 865249530 Code(s): R62.7 - ADULT FAILURE TO THRIVE Status: Chronic Current Visit: Yes (7) Physical deconditioning SNOMED Code(s): 63493749288139 Code(s): R53.81 - OTHER MALAISE Status: Chronic Current Visit: No (8) Alcoholic liver disease SNOMED Code(s): 19003504 Code(s): K70.9 - ALCOHOLIC LIVER DISEASE, UNSPECIFIED Status: Chronic Current Visit: No (9) HTN (hypertension) SNOMED Code(s): 06071858 Code(s): I10 - ESSENTIAL (PRIMARY) HYPERTENSION Status: Chronic Current Visit: No Qualifiers: Hypertension type: essential hypertension Qualified Code(s): I10 - Essential (primary) hypertension (10) Palliative care encounter SNOMED Code(s): 491163970, 165302519 Code(s): Z51.5 - ENCOUNTER FOR PALLIATIVE CARE Status: Chronic Current Visit: No (11) UTI (urinary tract infection) SNOMED Code(s): 55889710 Code(s): N39.0 - URINARY TRACT INFECTION, SITE NOT SPECIFIED Status: Ruled- out Current Visit: Yes Annotation/Comment:: Urine culture grew mixed geoff, discontinued Rocephin. - Problem List Review Problem List Initiated/Reviewed/Updated: Yes - My Orders Last 24 Hours: My Active Orders 05/20/20 Dinner [employer] Dysphagia Diet [DIET] - Plan Plan:: 1. UTI ruled out: discontinued Rocephin 1 g IV q24h, urine culture mixed geoff. 3. IVF at 100 ml/hr, sodium up to 133. 4. Dysphagia: video swallow study planned for Monday at 10 am. 5. Dysphagia diet. 6. Weakness: PT evaluate & treat. 7. DVT: SCDs BLE. 8. FULL CODE. 9. Has [facility] shift manager, Marcelino Loya at [facility]. He is refusing therapy and Rocephin discontinued. Will continue IVF as he is eating 25-50%, drinking 300-400 ml orally. Depending on testing, may need to go home with [facility] to stay at home. 10. Adjust treatment as necessary.
[2020-05-22] MEDS: Sodium Chloride 0.9% 1,000 ML IV SCH (04:20)
[2020-05-22] MEDS: Betamethasone Dipropionate/Clotrimazole 0.05-1% Crm 15 GM Tube TOP SCH ×2 (09:36→20:12)
[2020-05-22] MEDS: Sodium Chloride 0.9% 10 ML Syringe FLUSH PRN (10:50)
--- NOTE | 2020-05-22 11:21 | PCM.PN ---
- General Info Date of Service: 05/22/20 Subjective Update: Eyad has been eating his meals, about 25-50%. Had agreed to do swallow study yesterday but when therapy came to get him for test he refused. Speech therapy also tried to do bedside swallow evaluation and he refused to do that test as well. Weight is up. No nausea or vomiting. No fevers. Has refused any PT/OT yesterday and this morning. Functional Status: Reports: Tolerating Diet, Urinating - Patient Data Vitals - Most Recent: Last Vital Signs Temp 97.8 F 05/22/20 04:00 Pulse 80 05/22/20 04:00 Resp 20 05/22/20 04:00 BP 98/57 L 05/22/20 04:00 Pulse Ox 97 05/22/20 04:00 Weight - Most Recent: 140 lb 6 oz I&O - Last 24 Hours: Intake & Output 05/21/20 05/22/20 05/22/20 22:59 06:59 14:59 Intake Total 1631 715 Balance 1631 715 Clive Results Last 24 Hours: Microbiology 05/19/20 17:39 Urine Culture - Final Urine, Voided MIXED POSITIVE GEOFF DAY 2 Med Orders - Current: Current Medications Acetaminophen (Tylenol) 650 mg PO Q4H PRN PRN Reason: analgesia/fever Betamethasone/Clotrimazole (Lotrisone) 0 gm TOP BID [facility] Last Admin: 05/22/20 09:36 Dose: Not Given Documented by: Lorazepam (Ativan) 1 mg IV Q6H PRN PRN Reason: Nausea/Vomiting Ondansetron HCl (Zofran) 4 mg IV Q4H PRN PRN Reason: Nausea/Vomiting Senna/Docusate Sodium (Senna Plus) 1 tab PO BID PRN PRN Reason: Constipation Sodium Chloride (Saline Flush) 10 ml FLUSH ASDIRECTED PRN PRN Reason: Keep Vein Open Last Admin: 05/22/20 10:50 Dose: 10 ml Documented by: Spironolactone (Aldactone) 100 mg PO DAILY [facility] Discontinued Medications Acetaminophen (Tylenol) 650 mg PO Q4H PRN PRN Reason: Pain (Mild 1-3)/fever Ceftriaxone Sodium (Rocephin) 1 gm IVPUSH Q24H [facility] Last Admin: 05/20/20 21:20 Dose: 1 gm Documented by: Sodium Chloride (Normal Saline) 1,000 mls @ 100 mls/hr IV ASDIRECTED [facility] Last Admin: 05/22/20 04:20 Dose: 125 mls/hr Documented by: Sodium Chloride (Normal Saline) 1,000 mls @ 999 mls/hr IV .BOLUS ONE Stop: 05/19/20 19:43 Last Admin: 05/19/20 16:55 Dose: 999 mls/hr Documented by: Ceftriaxone Sodium 1 gm/ (Sodium Chloride) 50 mls @ 200 mls/hr IV Q24H [facility] Last Admin: 05/19/20 22:23 Dose: 200 mls/hr Documented by: Potassium Chloride (Kcl 20 Meq In Water 100 Ml) 100 mls @ 50 mls/hr IV Q2H [facility] Stop: 05/20/20 13:59 Last Admin: 05/20/20 13:03 Dose: 50 mls/hr Documented by: Iopamidol (Isovue-370 (76%)) 100 ml IV ONETIME ONE Stop: 05/19/20 20:03 - Exam General: Alert. No: Cooperative Lungs: Clear to Auscultation, Normal Respiratory Effort Cardiovascular: Regular Rate, Regular Rhythm GI/Abdominal Exam: Normal Bowel Sounds, Soft, Non-Tender, No Distention Extremities: No Pedal Edema Sepsis Event Note - Evaluation Sepsis Screening Result: No Definite Risk - Focused Exam Vital Signs: Vital Signs Temp Pulse Resp BP Pulse Ox 05/22/20 04:00 97.8 F 80 20 98/57 L 97 05/22/20 00:00 97.5 F 83 20 95/58 L 97 Date Exam was Performed: 05/22/20 Time Exam was Performed: 11:14 - Problem List & Annotations (1) Dysphagia SNOMED Code(s): 23260091, 762084811 Code(s): R13.10 - DYSPHAGIA, UNSPECIFIED Status: Acute Current Visit: Yes (2) Malnutrition SNOMED Code(s): 17053426 Code(s): E46 - UNSPECIFIED PROTEIN-CALORIE MALNUTRITION Status: Acute Current Visit: Yes (3) Hyponatremia SNOMED Code(s): 61667002 Code(s): E87.1 - HYPO-OSMOLALITY AND HYPONATREMIA Status: Resolved Current Visit: No Annotation/Comment:: (4) Hypokalemia SNOMED Code(s): 45826492 Code(s): E87.6 - HYPOKALEMIA Status: Resolved Current Visit: No Annotation/Comment:: repeat tomorrow after restarting Spironolactone (5) Weakness SNOMED Code(s): 33924393 Code(s): R53.1 - WEAKNESS Status: Acute Current Visit: Yes (6) FTT (failure to thrive) in adult SNOMED Code(s): 080330380 Code(s): R62.7 - ADULT FAILURE TO THRIVE Status: Chronic Current Visit: Yes (7) Physical deconditioning SNOMED Code(s): 04578531212677 Code(s): R53.81 - OTHER MALAISE Status: Chronic Current Visit: No (8) Alcoholic liver disease SNOMED Code(s): 67913667 Code(s): K70.9 - ALCOHOLIC LIVER DISEASE, UNSPECIFIED Status: Chronic Current Visit: No (9) HTN (hypertension) SNOMED Code(s): 78034883 Code(s): I10 - ESSENTIAL (PRIMARY) HYPERTENSION Status: Chronic Current Visit: No Qualifiers: Hypertension type: essential hypertension Qualified Code(s): I10 - Essential (primary) hypertension (10) Palliative care encounter SNOMED Code(s): 923869370, 988131591 Code(s): Z51.5 - ENCOUNTER FOR PALLIATIVE CARE Status: Chronic Current Visit: No (11) UTI (urinary tract infection) SNOMED Code(s): 15178449 Code(s): N39.0 - URINARY TRACT INFECTION, SITE NOT SPECIFIED Status: Ruled- out Current Visit: Yes Annotation/Comment:: Urine culture grew mixed geoff, discontinued Rocephin. - Problem List Review Problem List Initiated/Reviewed/Updated: Yes - My Orders Last 24 Hours: My Active Orders 05/22/20 08:08 Swallowing Function w Video [CR] Routine 05/22/20 10:03 Convert IV to Peripheral Lock [Convert IV to Saline Lock] [OM.PC] Routine 05/22/20 10:30 Spironolactone [Aldactone] 100 mg PO DAILY 05/23/20 06:00 BASIC METABOLIC PANEL,BMP [CHEM] Routine - Plan Plan:: 1. Discontinue IVF, weight is up, restart Spironolactone for ascites. 4. Dysphagia: refused to do video swallow study or bedside swallow with speech therapy. 5. Dysphagia diet. 6. Weakness: refusing therapies. 7. DVT: SCDs BLE. 8. FULL CODE. 9. Has [facility] database manager, Marcelino Loya at [facility]. He is refusing all therapies and testing. Will stop IVF, recheck his sodium and potassium tomorrow(if he cooperates) after restarting his spironolactone. Discharge tomorrow with [facility]. Would benefit from Assisted Living or SNF placement, patient has refused.
[2020-05-22] MEDS: Spironolactone 50 MG Tab PO SCH (12:01)
[2020-05-22] MEDS ORDERED: Colchicine 0.6 MG Tab PO ONE ×2 (16:30→17:30)
[2020-05-23] MEDS ORDERED: Sodium Chloride 0.9% 1,000 ML IV ONE (09:10)
[2020-05-23] MEDS: Sodium Chloride 0.9% 10 ML Syringe FLUSH PRN ×2 (09:27→14:00)
[2020-05-23] MEDS: Potassium Chloride 100 ML IV SCH ×2 (09:29→11:50)
--- NOTE | 2020-05-23 09:41 | PCM.PN ---
- General Info Date of Service: 05/23/20 Subjective Update: Eyad had emesis with breakfast this morning, felt fine before it but had 2 episodes during breakfast. Gout flared up last night, had colchicine 1.2 mg x 1 then 0.6 mg an hour later, states foot feels better this morning. Denies any abdominal pain and had bowel movement. Had refused dysphagia testing yesterday, both video and bedside. Potassium down and sodium after restarting his spironolactone. Has not abdominal distention. - Patient Data Vitals - Most Recent: Last Vital Signs Temp 97.0 F 05/23/20 00:00 Pulse 87 05/23/20 00:00 Resp 16 05/23/20 00:00 BP 98/57 L 05/23/20 00:00 Pulse Ox 95 05/23/20 00:00 Weight - Most Recent: 140 lb 6 oz Lab Results Last 24 Hours: Laboratory Results - last 24 hr 05/19/20 05/23/20 Range/Units 17:55 06:20 Sodium 132 L (135-145) mmol/L Potassium 3.3 L (3.5-5.3) mmol/L Chloride 102 (100-110) mmol/L Carbon Dioxide 25 (21-32) mmol/L BUN 9 (7-18) mg/dL Creatinine 0.7 (0.70-1.30) mg/dL Est Cr Clr Drug Dosing 82.12 mL/min Estimated GFR (MDRD) > 60 (>60) BUN/Creatinine Ratio 12.9 (9-20) Glucose 101 (80-116) mg/dL Calcium 7.3 L (8.6-10.2) mg/dL Myoglobin 51 (28-72) ng/mL Med Orders - Current: Current Medications Acetaminophen (Tylenol) 650 mg PO Q4H PRN PRN Reason: analgesia/fever Potassium Chloride (Kcl 20 Meq In Water 100 Ml) 100 mls @ 50 mls/hr IV Q2H [facility] Stop: 05/23/20 13:59 Last Admin: 05/23/20 09:29 Dose: 50 mls/hr Documented by: Sodium Chloride (Normal Saline) 1,000 mls @ 999 mls/hr IV .BOLUS ONE Stop: 05/23/20 10:10 Last Admin: 05/23/20 09:30 Dose: 999 mls/hr Documented by: Lorazepam (Ativan) 1 mg IV Q6H PRN PRN Reason: Nausea/Vomiting Ondansetron HCl (Zofran) 4 mg IV Q4H PRN PRN Reason: Nausea/Vomiting Senna/Docusate Sodium (Senna Plus) 1 tab PO BID PRN PRN Reason: Constipation Sodium Chloride (Saline Flush) 10 ml FLUSH ASDIRECTED PRN PRN Reason: Keep Vein Open Last Admin: 05/23/20 09:27 Dose: 10 ml Documented by: Discontinued Medications Acetaminophen (Tylenol) 650 mg PO Q4H PRN PRN Reason: Pain (Mild 1-3)/fever Betamethasone/Clotrimazole (Lotrisone) 0 gm TOP BID [facility] Last Admin: 05/22/20 20:12 Dose: Not Given Documented by: Ceftriaxone Sodium (Rocephin) 1 gm IVPUSH Q24H [facility] Last Admin: 05/20/20 21:20 Dose: 1 gm Documented by: Colchicine (Colcrys) 1.2 mg PO ONETIME ONE Stop: 05/22/20 16:31 Last Admin: 05/22/20 16:39 Dose: 1.2 mg Documented by: Colchicine (Colcrys) 0.6 mg PO ONETIME ONE Stop: 05/22/20 17:31 Last Admin: 05/22/20 17:32 Dose: 0.6 mg Documented by: Sodium Chloride (Normal Saline) 1,000 mls @ 100 mls/hr IV ASDIRECTED [facility] Last Admin: 05/22/20 04:20 Dose: 125 mls/hr Documented by: Sodium Chloride (Normal Saline) 1,000 mls @ 999 mls/hr IV .BOLUS ONE Stop: 05/19/20 19:43 Last Admin: 05/19/20 16:55 Dose: 999 mls/hr Documented by: Ceftriaxone Sodium 1 gm/ (Sodium Chloride) 50 mls @ 200 mls/hr IV Q24H [facility] Last Admin: 05/19/20 22:23 Dose: 200 mls/hr Documented by: Potassium Chloride (Kcl 20 Meq In Water 100 Ml) 100 mls @ 50 mls/hr IV Q2H [facility] Stop: 05/20/20 13:59 Last Admin: 05/20/20 13:03 Dose: 50 mls/hr Documented by: Iopamidol (Isovue-370 (76%)) 100 ml IV ONETIME ONE Stop: 05/19/20 20:03 Spironolactone (Aldactone) 100 mg PO DAILY [facility] Last Admin: 05/22/20 12:01 Dose: 100 mg Documented by: - Exam General: Alert, No Acute Distress. No: Cooperative Lungs: Clear to Auscultation, Normal Respiratory Effort Cardiovascular: Regular Rate, Regular Rhythm GI/Abdominal Exam: Normal Bowel Sounds, Soft, Non-Tender, No Distention, Guarding Sepsis Event Note - Evaluation Sepsis Screening Result: No Definite Risk - Focused Exam Vital Signs: Vital Signs Temp Pulse Resp BP Pulse Ox 05/23/20 00:00 97.0 F 87 16 98/57 L 95 Date Exam was Performed: 05/23/20 Time Exam was Performed: 09:35 - Problem List & Annotations (1) Vomiting SNOMED Code(s): 585929448 Code(s): R11.10 - VOMITING, UNSPECIFIED Status: Acute Current Visit: Yes Annotation/Comment:: Has not had vomiting with meals prior to this morning, wasn't nausous prior to breakfast and refused nausea med after he vomited. No nausea or pain when examined. May be due to what he had a breakfast, will see how he does with lunch. Giving 1L NS bolus and potassium this morning. If he tolerates lunch, then could go home later this evening. (2) Dysphagia SNOMED Code(s): 43855233, 373755224 Code(s): R13.10 - DYSPHAGIA, UNSPECIFIED Status: Acute Current Visit: Yes (3) Malnutrition SNOMED Code(s): 64583484 Code(s): E46 - UNSPECIFIED PROTEIN-CALORIE MALNUTRITION Status: Acute Current Visit: Yes (4) Hyponatremia SNOMED Code(s): 76356052 Code(s): E87.1 - HYPO-OSMOLALITY AND HYPONATREMIA Status: Acute Current Visit: No Annotation/Comment:: Down to 132 this morning after restarting spironolactone. NS 1 L bolus ordered. (5) Hypokalemia SNOMED Code(s): 31299479 Code(s): E87.6 - HYPOKALEMIA Status: Acute Current Visit: No Annotation/Comment:: down to 3.2 after restarting Spironolactone. Refused oral form, but willing to do IV form, will do 40 mEQ over 4 hours. (6) Weakness SNOMED Code(s): 13438628 Code(s): R53.1 - WEAKNESS Status: Acute Current Visit: Yes (7) FTT (failure to thrive) in adult SNOMED Code(s): 510728596 Code(s): R62.7 - ADULT FAILURE TO THRIVE Status: Chronic Current Visit: Yes (8) Physical deconditioning SNOMED Code(s): 87302831292420 Code(s): R53.81 - OTHER MALAISE Status: Chronic Current Visit: No (9) Alcoholic liver disease SNOMED Code(s): 68150844 Code(s): K70.9 - ALCOHOLIC LIVER DISEASE, UNSPECIFIED Status: Chronic Current Visit: No (10) HTN (hypertension) SNOMED Code(s): 38123339 Code(s): I10 - ESSENTIAL (PRIMARY) HYPERTENSION Status: Chronic Current Visit: No Qualifiers: Hypertension type: essential hypertension Qualified Code(s): I10 - Essential (primary) hypertension (11) Palliative care encounter SNOMED Code(s): 807052058, 883066793 Code(s): Z51.5 - ENCOUNTER FOR PALLIATIVE CARE Status: Chronic Current Visit: No (12) UTI (urinary tract infection) SNOMED Code(s): 11295419 Code(s): N39.0 - URINARY TRACT INFECTION, SITE NOT SPECIFIED Status: Ruled- out Current Visit: Yes Annotation/Comment:: Urine culture grew mixed geoff, discontinued Rocephin. (13) Gout attack SNOMED Code(s): 527042396 Code(s): M10.9 - GOUT, UNSPECIFIED Status: Chronic Current Visit: Yes Qualifiers: Gout site: foot Annotation/Comment:: flared up late yesterday afternoon, respond well to Colchicine. - Problem List Review Problem List Initiated/Reviewed/Updated: Yes - My Orders Last 24 Hours: My Active Orders 05/22/20 10:03 Convert IV to Peripheral Lock [Convert IV to Saline Lock] [OM.PC] Routine 05/23/20 09:10 Sodium Chloride 0.9% [Normal Saline] 1,000 ml IV .BOLUS 05/23/20 10:00 Potassium Chloride [KCL 20 MEQ in Water 100 ML] 100 ml IV Q2H - Plan Plan:: 1. Hyponatremia & Hypokalemia: sodium & potassium went down slightly after restarting Spironolactone. Will discontinue. Give 1 L NS bolus and KCL 20 mEq x 2 bags, total 40 mEq. 4. Dysphagia: refused to do video swallow study or bedside swallow with speech therapy. 5. Dysphagia diet. 6. Weakness: refusing therapies. 7. DVT: SCDs BLE. 8. FULL CODE. 9. Has [facility] manager strategy, Marcelino Loya at [facility]. He is refusing all therapies and testing. Will see how lunch goes after IV bolus and potassium. Discontinue spironolactone. Discharge later today with [facility]. Would benefit from Assisted Living or SNF placement, patient has refused multiple times when discussed.
[2020-05-23] MEDS: Spironolactone 50 MG Tab PO SCH (12:25)
[2020-05-23] MEDS: Betamethasone Dipropionate/Clotrimazole 0.05-1% Crm 15 GM Tube TOP SCH (12:25)
[2020-05-23] MEDS ORDERED: Iopamidol 755 Mg/ML 100 ML Bottle IV ONE (16:07)
--- NOTE | 2020-05-24 13:58 | PCM.DCSUM1 ---
Discharge Summary - Hospital Course HPI Initial Comments: Angel present to ER yesterday after being evaluated by his [facility] [employer], he had fallen while she was on the phone with him, she called a neighbor to assess while she came over. She noted he had significant weight loss since she had last seen him, had a whole week of pre-made meals uneaten. He states that he has had trouble swallowing liquids for about 4 weeks, when asked if solids get stuck he states he doesn't know. No fevers, or chills. No nausea or vomiting. No sure on last bowel movement. He did eat caramel roll and blueberries this morning and had small amount of juice, having trouble clearing his throat. Denies any neck swelling or mass. Dislikes answering any questions, which his case checker states is normal for him. She stated that better to give him options so he feels like he has a choice. He does have [facility] comin g in. ER evaluated him, found to have UTI, dehydration, hypokalemia. 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 He refused halfway placement, he prefers to go home and rather than being in halfway per case checker. She thinks he would be open to hospice if his swallowing problem can't be corrected. Diagnosis: Stroke: No - Discharge Data Discharge Date: 05/24/20 ([facility]) Discharge Disposition: Home, Home Health Agency 06 Condition: Stable - Referral to Home Health Date of Face to Face Encounter: 05/24/20 Reason for Homebound Status: cirrohosis Primary Care Physician: Reyes Canseco MD Skilled Need: Nursing - Discharge Diagnosis/Problem(s) (1) Vomiting SNOMED Code(s): 475000915 ICD Code: R11.10 - VOMITING, UNSPECIFIED Status: Resolved Problem Details: Ate all his breakfast this morning, no vomiting. (2) Dysphagia SNOMED Code(s): 08558598, 785057282 ICD Code: R13.10 - DYSPHAGIA, UNSPECIFIED Status: Acute Problem Details: Refused video swallow, bedside swallow tests, as well as CT soft tissue neck. Have on Dysphagia diet. If he is unwilling to get testing to find out the reason for his dysphagia, he will most likely further decline. [facility] to resume care, they stated he was not a candidate for hospice at home as he does not have a caregiver there. (3) Malnutrition SNOMED Code(s): 53259466 ICD Code: E46 - UNSPECIFIED PROTEIN-CALORIE MALNUTRITION Status: Acute (4) Hyponatremia SNOMED Code(s): 80408990 ICD Code: E87.1 - HYPO-OSMOLALITY AND HYPONATREMIA Status: Resolved Problem Details: 135 today. (5) Hypokalemia SNOMED Code(s): 80821689 ICD Code: E87.6 - HYPOKALEMIA Status: Resolved Problem Details: 3.7 today, Magnesium slight low but refuses oral medications. No diarrhea. (6) Weakness SNOMED Code(s): 96995165 ICD Code: R53.1 - WEAKNESS Status: Acute (7) FTT (failure to thrive) in adult SNOMED Code(s): 633132962 ICD Code: R62.7 - ADULT FAILURE TO THRIVE Status: Chronic (8) Physical deconditioning SNOMED Code(s): 67761505191380 ICD Code: R53.81 - OTHER MALAISE Status: Chronic (9) Alcoholic liver disease SNOMED Code(s): 02947718 ICD Code: K70.9 - ALCOHOLIC LIVER DISEASE, UNSPECIFIED Status: Chronic (10) HTN (hypertension) SNOMED Code(s): 82984907 ICD Code: I10 - ESSENTIAL (PRIMARY) HYPERTENSION Status: Chronic Qualifiers: Hypertension type: essential hypertension Qualified Code(s): I10 - Essential (primary) hypertension (11) Palliative care encounter SNOMED Code(s): 210695589, 208503009 ICD Code: Z51.5 - ENCOUNTER FOR PALLIATIVE CARE Status: Chronic (12) UTI (urinary tract infection) SNOMED Code(s): 38518321 ICD Code: N39.0 - URINARY TRACT INFECTION, SITE NOT SPECIFIED Status: Ruled-out Problem Details: Urine culture grew mixed geoff, discontinued Rocephin. (13) Gout attack SNOMED Code(s): 269376554 ICD Code: M10.9 - GOUT, UNSPECIFIED Status: Chronic Problem Details: flared up late yesterday afternoon, respond well to Colchicine. Qualifiers: Gout site: foot - Patient Summary/Data Consults: Consultations 05/19/20 20:51 PT Evaluation and Treatment [CONS] Routine Please Evaluate and Treat. PT Reason for Consult: Strengthening This query below is only for informational purposes and is not editable. Hospital Course: Eyad was started on IV fluids, sodium came up but potassium went down morning after admission to 2.9, recheck potassium replacement IV as he refused oral form. Sodium and potassium came up to 133 and 3.3 respectively, IVF discontinued and restarted Spironolactone, repeated labs next day, sodium went down to 132, and potassium 3.2 so spironolactone was discontinued and received another potassium 40 mEq IV, magnesium was 1.4 later on Monday, refused orals medications. Given Rocephin in ER and on floor for suspected UTI, came back mixed geoff, false positive test so Rocephin discontinued. Eyad refused physical and occupational therapy evaluations. He initially agreed to doing video swallow test which was scheduled for Monday morning. When they came to get him, he refused the test, offered bedside swallow and again refused the test. Ordered CT soft tissue neck to see if there was a mass or internal obstruction causing his dysphagia, again when radiology came to get him, refused the test. Discussed with patient that if he is not going to let us do testing to find out why he can't swallow, we aren't doing anything that he can't do at home. He was put on Dysphagia diet and had been tolerating that with some coughing, had some emesis with breakfast and lunch yesterday 05/23 but wasn't complaining of nausea prior to it and refused any antiemetic medications which were ordered. He drink juice last night for supper, no emesis and ate breakfast and lunch today with no further emesis. He refused halfway placement or being made comfort measures if he further declines in his eating. His case checker was aware on Monday that he refused testing for his dysphagia. He would not be able to do hospice her [facility] as he doesn't have a caregiver at home with him, so he would need to be in an assisted living, swing bed or halfway to do that. He refused to discuss any of them. Concern that he will continue to decline since we don't have a confirmed reason for his dysphagia, most likely functional and that he will go back to drinking alcohol, he is a vulnerable adult given his malnutrition, dysphagia but he is cognitively intact and can make his own decisions. Discontinued his Lasix, potassium and Spironolactone as he didn't have any evidence of ascites during hospitalization and risk of medications causing hyponatremia, hypokalemia are worse than the benefits of them. He also had a gout flare in his foot, treated with colchicine 1.2 mg x 1 then 0.6 mg an hour later, resolved. - Patient Instructions Diet: Mechanical Soft (honey thickened liquids) Activity: As Tolerated Driving: Do Not Drive Showering/Bathing: May Shower Notify Provider of: Fever, Increased Pain, Nausea and/or Vomiting Other/Special Instructions: Follow up with Wilma Alarcon NP at [facility] on MondayMay 30 at 230 pm for recheck of your sodium, potassium, magnesium. [facility] Home Health Nursing - Discharge Plan *PRESCRIPTION DRUG MONITORING PROGRAM REVIEWED*: Not Applicable *COPY OF PRESCRIPTION DRUG MONITORING REPORT IN PATIENT SOFY: Not Applicable Oxygen Therapy Mode: Room Air Patient Handouts: Fatigue, Dysphagia, Fall Prevention in Hospitals, Adult, Venous Thromboembolism Prevention Forms: ED Department Discharge Referrals: Wilma Pettit NP [Ordering Only Provider] - Reyes Canseco MD [Primary Care Provider] - - Discharge Summary/Plan Comment DC Time >30 min.: No - General Info Date of Service: 05/24/20 Subjective Update: He ate breakfast and lunch with no emesis. No other complaints. - Patient Data Vitals - Most Recent: Last Vital Signs Temp 97.5 F 05/24/20 08:00 Pulse 80 05/24/20 08:00 Resp 16 05/24/20 08:00 BP 87/55 L 05/24/20 08:00 Pulse Ox 93 L 05/24/20 08:00 Weight - Most Recent: 140 lb 6 oz Lab Results - Last 24 hrs: Laboratory Results - last 24 hr 05/23/20 05/24/20 Range/Units 06:20 06:24 Sodium 135 (135-145) mmol/L Potassium 3.7 (3.5-5.3) mmol/L Chloride 105 (100-110) mmol/L Carbon Dioxide 24 (21-32) mmol/L BUN 11 (7-18) mg/dL Creatinine 0.8 (0.70-1.30) mg/dL Est Cr Clr Drug Dosing 71.85 mL/min Estimated GFR (MDRD) > 60 (>60) BUN/Creatinine Ratio 13.8 (9-20) Glucose 90 (80-116) mg/dL Calcium 7.2 L (8.6-10.2) mg/dL Magnesium 1.4 L (1.8-2.5) mg/dL Med Orders - Current: Current Medications Discontinued Medications Acetaminophen (Tylenol) 650 mg PO Q4H PRN PRN Reason: Pain (Mild 1-3)/fever Acetaminophen (Tylenol) 650 mg PO Q4H PRN PRN Reason: analgesia/fever Betamethasone/Clotrimazole (Lotrisone) 0 gm TOP BID COUNTS INCLUDE 234 BEDS AT THE [facility] Last Admin: 05/23/20 12:25 Dose: Not Given Documented by: Ceftriaxone Sodium (Rocephin) 1 gm IVPUSH Q24H COUNTS INCLUDE 234 BEDS AT THE [facility] Last Admin: 05/20/20 21:20 Dose: 1 gm Documented by: Colchicine (Colcrys) 1.2 mg PO ONETIME ONE Stop: 05/22/20 16:31 Last Admin: 05/22/20 16:39 Dose: 1.2 mg Documented by: Colchicine (Colcrys) 0.6 mg PO ONETIME ONE Stop: 05/22/20 17:31 Last Admin: 05/22/20 17:32 Dose: 0.6 mg Documented by: Sodium Chloride (Normal Saline) 1,000 mls @ 100 mls/hr IV ASDIRECTED COUNTS INCLUDE 234 BEDS AT THE [facility] Last Admin: 05/22/20 04:20 Dose: 125 mls/hr Documented by: Sodium Chloride (Normal Saline) 1,000 mls @ 999 mls/hr IV .BOLUS ONE Stop: 05/19/20 19:43 Last Admin: 05/19/20 16:55 Dose: 999 mls/hr Documented by: Ceftriaxone Sodium 1 gm/ (Sodium Chloride) 50 mls @ 200 mls/hr IV Q24H COUNTS INCLUDE 234 BEDS AT THE [facility] Last Admin: 05/19/20 22:23 Dose: 200 mls/hr Documented by: Potassium Chloride (Kcl 20 Meq In Water 100 Ml) 100 mls @ 50 mls/hr IV Q2H COUNTS INCLUDE 234 BEDS AT THE [facility] Stop: 05/20/20 13:59 Last Admin: 05/20/20 13:03 Dose: 50 mls/hr Documented by: Potassium Chloride (Kcl 20 Meq In Water 100 Ml) 100 mls @ 50 mls/hr IV Q2H COUNTS INCLUDE 234 BEDS AT THE [facility] Stop: 05/23/20 13:59 Last Admin: 05/23/20 11:50 Dose: 50 mls/hr Documented by: Sodium Chloride (Normal Saline) 1,000 mls @ 999 mls/hr IV .BOLUS ONE Stop: 05/23/20 10:10 Last Admin: 05/23/20 09:30 Dose: 999 mls/hr Documented by: Iopamidol (Isovue-370 (76%)) 100 ml IV ONETIME ONE Stop: 05/19/20 20:03 Iopamidol (Isovue-370 (76%)) 75 ml IV . DIRECTED ONE Stop: 05/23/20 16:08 Last Admin: 05/23/20 16:20 Dose: Not Given Documented by: Lorazepam (Ativan) 1 mg IV Q6H PRN PRN Reason: Nausea/Vomiting Ondansetron HCl (Zofran) 4 mg IV Q4H PRN PRN Reason: Nausea/Vomiting Senna/Docusate Sodium (Senna Plus) 1 tab PO BID PRN PRN Reason: Constipation Sodium Chloride (Saline Flush) 10 ml FLUSH ASDIRECTED PRN PRN Reason: Keep Vein Open Last Admin: 05/23/20 14:00 Dose: 10 ml Documented by: Spironolactone (Aldactone) 100 mg PO DAILY JANELL Last Admin: 05/23/20 12:25 Dose: Not Given Documented by: - Exam General: Reports: Alert, No Acute Distress. Denies: Cooperative Lungs: Reports: Clear to Auscultation, Normal Respiratory Effort, Decreased Breath Sounds (bibasilar). Denies: Crackles, Rales, Rhonchi, Wheezing Cardiovascular: Reports: Regular Rate, Regular Rhythm GI/Abdominal Exam: Normal Bowel Sounds, Soft, Non-Tender, No Distention
== END 2020-05-24 12:55 | disposition home health service (06) | DRG 641 ==
LOC: FB.ED 16:44 → FB.MS 20:51
PROVIDERS: ADMIT Emergency Medicine; ATTEND Family Medicine
DX: N39.0 Urinary tract infection, site not specified (principal); R62.7 Adult failure to thrive; R53.1 Weakness; E87.6 Hypokalemia; E46 Unspecified protein-calorie malnutrition; R13.10 Dysphagia, unspecified; E86.0 Dehydration; Z87.891 Personal history of nicotine dependence; F10.21 Alcohol dependence, in remission; K70.9 Alcoholic liver disease, unspecified; Z20.828 Contact with and (suspected) exposure to other viral communicable diseases; Z91.81 History of falling; I10 Essential (primary) hypertension; Z51.5 Encounter for palliative care; M10.9 Gout, unspecified; Z79.899 Other long term (current) drug therapy; H54.7 Unspecified visual loss; K74.60 Unspecified cirrhosis of liver
CPT/HCPCS: 36415; 70450; 71045; 74177; 80053; 80305; 80307; 81001; 82550; 83874; 83880; 84443; 84484; 85025; 87086; 93005; 99284; J7030 ×2; U0002; 80048; 83735; 99285; A9270-GY; J0696; J3480; J7050; Q9967

== ENCOUNTER 2020-07-01 15:22 | Emergency (ER) | payer MEDICARE ==
[2020-07-01] MEDS ORDERED: Lidocaine 1% PF 2 ML SDV INJECT ONE (15:23)
[2020-07-01] MEDS ORDERED: Sodium Chloride 0.9% 10 ML Syringe FLUSH PRN (15:50)
[2020-07-01] MEDS ORDERED: Ondansetron 4 MG/2 ML SDV IVPUSH ONE (15:53)
[2020-07-01] MEDS ORDERED: Sodium Chloride 0.9% 1,000 ML IV SCH (16:00)
--- NOTE | 2020-07-01 16:41 | PCM.SN.2 ---
- Free Text/Narrative Note: Was called by ER nurse to start an IV on patient due to 3 prior attempts without success. After prepping left lower arm,injected 0.5 cc's of Xylocaine 1%, a 20 jelco was started x's 1 attempt,area secured and flushed easily with 5cc's of saline. Report given to ER nurse.
[2020-07-01] MEDS ORDERED: Levofloxacin 750 MG Tab PO STA (17:50)
--- NOTE | 2020-07-01 17:55 | EDM.PDOC ---
ED HPI GENERAL MEDICAL PROBLEM - General Chief Complaint: General Stated Complaint: ABD PAIN Time Seen by Provider: 07/01/20 15:25 Source of Information: Reports: Patient History Limitations: Reports: No Limitations - History of Present Illness INITIAL COMMENTS - FREE TEXT/NARRATIVE: Patient presented to the ED because of a chronic abdominal pain, epigastric area,burning type. He said I'm not hurting right now. He also c/o occasional nausea but no vomiting. He has cough and cold x 2 days, denies any fever,chills, dyspnea. He also has a chronic dysphagia in which he doesn't want anything done like swallow evaluation. He has a history of alcoholism and has been sober for 8-9 month now. - Related Data Allergies Allergy/AdvReac Type Severity Reaction Status Date / Time No Known Allergies Allergy Verified 07/01/20 15:28 Home Meds: Home Meds Ondansetron [Zofran ODT] 4 mg PO Q4H PRN #7 tab.dis 07/01/20 [Rx] levoFLOXacin [Levaquin] 750 mg PO DAILY #7 tab 07/01/20 [Rx] Past Medical History - Past Health History Medical/Surgical History: Denies Medical/Surgical History HEENT History: Reports: Impaired Vision Cardiovascular History: Reports: Hypertension Respiratory History: Reports: Other (See Below) Other Respiratory History: has hx of tobaco abuse. previous chart indicates that he had quit smoking 1960 but chewed tobacco after that. Gastrointestinal History: Reports: Cirrhosis Genitourinary History: Reports: Other (See Below) Other Genitourinary History: prostate problem- on flomax. Musculoskeletal History: Reports: Gout Other Musculoskeletal History: LEFT LEG FRACTURE Neurological History: Reports: Head Trauma Psychiatric History: Reports: Other (See Below) Other Psychiatric History: ETOH and tobaco abuse - Infectious Disease History Infectious Disease History: Reports: Chicken Pox Social & Family History - Family History Family Medical History: Unobtainable - Tobacco Use Smoking Status *Q: Unknown Ever Smoked Tobacco Use Comment: Unable to obtain information due to uncooperation. - Caffeine Use Caffeine Use: Reports: None Caffeine Use Comment: Unable to obtain information due to uncooperation. ED ROS GENERAL - Review of Systems Review Of Systems: See Below Constitutional: Denies: Fever, Chills HEENT: Reports: No Symptoms Respiratory: Reports: Cough, Sputum Cardiovascular: Reports: No Symptoms Endocrine: Reports: No Symptoms GI/Abdominal: Reports: No Symptoms : Reports: No Symptoms Musculoskeletal: Reports: No Symptoms Skin: Reports: No Symptoms Neurological: Reports: No Symptoms Psychiatric: Reports: No Symptoms ED EXAM, GENERAL - Physical Exam Exam: See Below Exam Limited By: No Limitations General Appearance: Alert, No Apparent Distress Eye Exam: Bilateral Eye: PERRL Ears: Normal External Exam, Normal Canal Nose: Normal Inspection, Normal Mucosa Throat/Mouth: Normal Inspection, Normal Lips, Normal Teeth Head: Atraumatic, Normocephalic Neck: Normal Inspection, Supple, Non-Tender, Full Range of Motion Respiratory/Chest: No Respiratory Distress, Lungs Clear, Normal Breath Sounds Cardiovascular: Normal Peripheral Pulses, Regular Rate, Rhythm, No Edema GI/Abdominal: Normal Bowel Sounds, Soft, Non-Tender Back Exam: Normal Inspection, Full Range of Motion Extremities: Normal Inspection, Normal Range of Motion Neurological: Alert, Oriented, CN II-XII Intact Course - Vital Signs Text/Narrative:: Labs/EKG/CXR was reviewed with patient NS 1 L bolus Refused Zofran IV Levaquin 750 mg PO x1 The hospital is on divert and doesn't want to go to [place]. We did work him around with a walker and he did just fine. Last Recorded V/S: Last Vital Signs Temp 36.3 C 07/01/20 18:08 Pulse 107 H 07/01/20 18:08 Resp 18 07/01/20 18:08 BP 120/75 07/01/20 18:08 Pulse Ox 97 07/01/20 18:08 - Orders/Labs/Meds Orders: Active Orders 24 hr Category Date Time Status Chest 1V Frontal [CR] Stat Exams 07/01/20 15:50 Taken Saline Lock Insert [OM.PC] Routine Oth 07/01/20 15:50 Ordered EKG 12 Lead [EK] Routine Ther 07/01/20 15:50 Ordered Labs: Laboratory Tests 07/01/20 07/01/20 07/01/20 Range/Units 16:15 16:15 16:15 WBC 16.4 H (4.5-12.0) X10-3/uL RBC 3.83 L (4.30-5.75) x10(6)uL Hgb 12.6 L (13.5-17.8) g/dL Hct 36.8 (30.0-51.3) % MCV 95.9 (80-96) fL MCH 32.9 (27.7-33.6) pg MCHC 34.3 (32.2-35.4) g/dL RDW 13.9 (11.5-15.5) % Plt Count 238 (125-369) X10(3)uL MPV 8.2 (7.4-10.4) fL Neut % (Auto) 78.7 (46-82) % Lymph % (Auto) 9.9 L (13-37) % Wright % (Auto) 9.0 (4-12) % Eos % (Auto) 0 L (1.0-5.0) % Baso % (Auto) 2 (0-2) % Neut # (Auto) 12.9 H (1.6-8.3) # Lymph # (Auto) 1.6 (0.6-5.0) # Wright # (Auto) 1.5 H (0.0-1.3) # Eos # (Auto) 0.0 (0.0-0.8) # Baso # (Auto) 0.4 H (0.0-0.2) # Sodium 132 L (135-145) mmol/L Potassium 3.7 (3.5-5.3) mmol/L Chloride 96 L D (100-110) mmol/L Carbon Dioxide 26 (21-32) mmol/L BUN 13 (7-18) mg/dL Creatinine 1.0 (0.70-1.30) mg/dL Est Cr Clr Drug Dosing 60.48 mL/min Estimated GFR (MDRD) > 60 (>60) BUN/Creatinine Ratio 13.0 (9-20) Glucose 109 (80-116) mg/dL Calcium 7.7 L (8.6-10.2) mg/dL Total Bilirubin 5.5 H (0.1-1.3) mg/dL AST 38 H D (5-25) IU/L ALT 13 D (12-36) U/L Alkaline Phosphatase 141 H (56-112) IU/L Troponin I 5.0 (4.0-60.3) pg/mL Total Protein 6.1 (6.0-8.0) g/dL Albumin 1.7 L* (3.2-4.6) g/dL Globulin 4.4 g/dL Albumin/Globulin Ratio 0.4 Amylase 11 L (25-115) U/L Lipase 83 (73-393) U/L Meds: Medications Discontinued Medications Generic Name Dose Route Start Last Admin Trade Name Freq PRN Reason Stop Dose Admin Sodium Chloride 1,000 mls @ 999 mls/hr 07/01/20 16:00 07/01/20 16:38 Normal Saline IV 999 mls/hr ASDIRECTED JANELL Administration Levofloxacin 750 mg 07/01/20 17:50 07/01/20 17:59 Levaquin PO 07/01/20 17:51 750 mg NOW STA Administration Ondansetron HCl 4 mg 07/01/20 15:53 07/01/20 17:27 Zofran IVPUSH 07/01/20 15:54 Not Given ONETIME ONE Sodium Chloride 10 ml 07/01/20 15:50 07/01/20 16:33 Saline Flush FLUSH 10 ml ASDIRECTED PRN Administration Keep Vein Open Departure - Departure Time of Disposition: 17:55 Disposition: Home, Self-Care 01 Condition: Good Clinical Impression: Pneumonitis, Malnutrition - Discharge Information Prescriptions: levoFLOXacin [Levaquin] 750 mg PO DAILY #7 tab Ondansetron [Zofran ODT] 4 mg PO Q4H PRN #7 tab.dis PRN Reason: Nausea Instructions: Protein-Energy Malnutrition, Pneumonitis Referrals: Reyes Canseco MD [Primary Care Provider] - Forms: ED Department Discharge Additional Instructions: Please read discharge instructions on pneumonitis and malnutrition Increase oral fluids Zofran ODT 4 mg every 4 hours as needed for nausea Levaquin 750 mg daily for 7 days Drink ensure 2-3 times daily Follow up with your doctor on Monday Sepsis Event Note (ED) - Evaluation Sepsis Screening Result: No Definite Risk - Focused Exam Vital Signs: Vital Signs Temp Pulse Resp BP Pulse Ox 07/01/20 18:08 36.3 C 107 H 18 120/75 97 07/01/20 17:08 36.3 C 99 16 92/58 L 97 07/01/20 15:25 36.3 C 110 H 20 110/67 96 - My Orders Last 24 Hours: My Active Orders 07/01/20 15:50 Chest 1V Frontal [CR] Stat Saline Lock Insert [OM.PC] Routine EKG 12 Lead [EK] Routine - Assessment/Plan Last 24 Hours: My Active Orders 07/01/20 15:50 Chest 1V Frontal [CR] Stat Saline Lock Insert [OM.PC] Routine EKG 12 Lead [EK] Routine
--- NOTE | 2020-07-02 16:35 | CR ---
INDICATION: Cough. CHEST, ONE VIEW: An AP upright portable view of the chest 07/01/20 was compared with 05/19/20 and 03/09/20. New findings of pleuroparenchymal changes are noted at the lung bases with greater parenchymal change at the left lung base, but with what appears to be a pleural effusion, possibly with some atelectasis at the right lung base. The heart did not appear grossly enlarged and is made more prominent by poor inspiration and AP positioning. The aorta is tortuous. Calcifications are minimal in the arch of the aorta. IMPRESSION: 1. New finding of bibasilar pleuroparenchymal changes which may be on the basis of pneumonia and pleuritis - possibly due to a process such as aspiration pneumonia. 2. Probable ASHD. MTDD
== END 2020-07-01 18:19 | disposition home or self-care (01) ==
LOC: FB.ED 15:22
DX: J18.9 Pneumonia, unspecified organism (principal); E46 Unspecified protein-calorie malnutrition; I10 Essential (primary) hypertension
CPT/HCPCS: 36415; 71045; 80053; 82150; 83690; 84484; 85025; 93005; 96360; 99285-25; A9270-GY; J2001; J7030

== ENCOUNTER 2020-07-31 16:28 | Inpatient (IN) | payer MEDICARE ==
[2020-07-31] MEDS ORDERED: Metolazone 2.5 MG Tab PO ONE (16:30)
[2020-07-31] MEDS ORDERED: Furosemide 40 MG/4 ML VIAL IVPUSH ONE (16:30)
[2020-07-31] MEDS: Sodium Chloride 0.9% 10 ML Syringe FLUSH PRN ×2 (17:04→23:44)
[2020-07-31] MEDS ORDERED: Ondansetron 4 MG Tab.DIS PO PRN (17:32)
[2020-07-31] MEDS ORDERED: Sodium Chloride 0.9% 1,000 ML IV SCH (18:00)
[2020-07-31] MEDS ORDERED: Furosemide 40 MG/4 ML VIAL IVPUSH SCH (18:00)
[2020-07-31] MEDS ORDERED: Lidocaine 2% HCl 6 ML JEL.PF.APP MM ONE (18:43)
--- NOTE | 2020-07-31 19:07 | CR ---
INDICATION: Dyspnea, cough. CHEST, ONE VIEW: An AP upright view of the chest was obtained 07/31/20 and compared with 07/01/20 and 05/19/20. Infiltration seen in both lower lung beard on the previous examination has markedly reduced compared with the previous study. There may be some very minimal residuals. However, no other findings to suggest worsening of the infiltrates or new acute infiltrates could be identified. The heart remains normal in size and shape. The aorta is tortuous with calcification in the arch. IMPRESSION: Improvement compared with the previous examination. There appears to be some residual infiltrate at the lung bases and/or fibrosis. Minimal residual pneumonia is difficult to exclude. MTDD
[2020-07-31] MEDS ORDERED: Enoxaparin 40 MG/0.4 ML Syringe SUBCUT SCH (20:00)
[2020-07-31] MEDS: Furosemide 40 MG/4 ML VIAL IVPUSH SCH (23:39)
[2020-08-01] MEDS: Furosemide 40 MG/4 ML VIAL IVPUSH SCH ×3 (05:33→18:17)
[2020-08-01] MEDS ORDERED: Spironolactone 25 MG Tab PO SCH (09:00)
[2020-08-01] MEDS ORDERED: Thiamine 200 MG/2 ML MDV IM SCH (09:45)
--- NOTE | 2020-08-01 10:07 | PN ---
DATE SEEN: 08/01/2020 SUBJECTIVE: Angel Ortiz is a 75-year-old male admitted yesterday on 07/31. Complicated abdominal ascites and hepatorenal failure. Feeling a little better this morning. Plain radiographs revealed no complicating issue. Small pleural effusions. Laboratory studies reviewed and revealed evidence of liver dysfunction. Bilirubin greater than 5. Diuresis was very limited. PHYSICAL EXAMINATION: VITAL SIGNS: Single weight available today, 90.628 kg. Daily weights to be performed. Blood pressure 101/60, pulse 117 and regular, 24 are the respirations, 96% on 2 L. GENERAL: Dyspneic with conversation. NECK: Benign. No JVD. CHEST: Decreased breath sounds, but clear in all lung beard. HEART: Distant heart sounds. Occasional ectopy, 110. ABDOMEN: Marked ascites. IMPRESSION: Complicated hepatic failure, ascites, and alcohol-related hepatitis. PLAN: Consultation will be obtained with Dr. Jose Armando Ponce. Paracentesis under consideration. Medications will stay the same in the meantime. /[id number] /DALIL
--- NOTE | 2020-08-01 10:28 | HP ---
ADMISSION DATE: 07/31/2020 REASON FOR VISIT: Increasing abdominal ascites. HISTORY OF PRESENT ILLNESS: Angel Ortiz is a 75-year-old single male who was admitted after being seen by Dr. Canseco at [facility]. He had been coming in just for a routine visit. 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 A host of medications he has been on in the past, specifically directed to hepatorenal well-being, had not been continued. Medications that had been listed on his home med list were furosemide only. Noted increasing fatigue, lethargy, decreased appetite, increasing abdominal distention, and decreased urinary output. DAILY MEDICATIONS: None as routine. ALLERGIES: No medication, environmental, or latex allergies. PAST MEDICAL HISTORY: Significant for no previous operative procedures or chronic illnesses other than alcohol-related liver failure. SOCIAL HISTORY: Retired, recruiting and selection consultant by occupation. Never . No children. Quit smoking in 1959. Significant alcohol history. FAMILY HISTORY: Noncontributory. No early heart disease, diabetes mellitus, or inheritable cancer. REVIEW OF SYSTEMS: CONSTITUTIONAL: Feeling poorly. HEENT: Eyes: Sees well. Ears: Difficulty with hearing. OROPHARYNX: Poor dentition. CARDIOVASCULAR: Denies chest pain, palpitations, or syncope. RESPIRATORY: Shortness of breath with exertion. GASTROINTESTINAL: Abdominal distention, reluctant stools. GENITOURINARY: Voiding decreased, intake poor, nocturia x2. SKIN: No lesions, eruptions, or moles. ORTHOPEDIC: Generalized joint complaints. ENDOCRINE: No excessive thirst or urination. PSYCHIATRIC: Feeling sad. PHYSICAL EXAMINATION: VITAL SIGNS: Stable and documented. GENERAL: Elderly gentleman. A bit of dysarthric speech, difficult to hear. HEENT: Funduscopic benign. Conjunctivae clear. Bright tympanic membranes. Decreased hearing. Clear nasal discharge. Mouth and Oropharynx: Poor dentition. NECK: Benign. Thyroid small. No adenopathy. No carotid bruits. CHEST: On auscultation, clear in all lung beard. HEART: On auscultation, no ectopy or murmur. ABDOMEN: Marked abdominal distention, fluid wave, and marked ascites. GENITOURINARY AND RECTAL: Deferred. EXTREMITIES: Reveal significant extremity edema. Sensation is normal. Decreased but palpable peripheral pulses. LABORATORY STUDIES: White count 12,900, hemoglobin 12.6, slightly macrocytic indices, and platelets 313,000. Electrolytes revealed creatinine of 1.6, BUN 20, GFR 42, and elevated bilirubin of 5.2. AST, ALT, and alkaline phosphatase are moderately elevated. ASSESSMENT: Increasing hepatic failure with exploding abdominal ascites with long-term alcohol use. PLAN: We will attempt to diurese, add Aldactone, and paracentesis under consideration. Surgical consultation to be considered. /[id number] /JOSE
== END 2020-08-01 19:00 | DRG 443 ==
LOC: FB.MS 16:28
PROVIDERS: ADMIT Family Medicine; ATTEND Family Medicine
DX: K72.90 Hepatic failure, unspecified without coma (principal); K70.11 Alcoholic hepatitis with ascites
CPT/HCPCS: 36410; 36415; 51702; 71045; 74176; 80053; 83880; 85025; A9270-GY; J1650; J1940; J3411; J7030